=== PATIENT | female | born 1930 | race Caucasian/White ===

== ENCOUNTER 2018-11-14 06:14 | Inpatient (IN) ==
[2018-11-14] MEDS ORDERED: traMADol 50 MG TABLET PO ONE ×2 (08:51→20:13)
[2018-11-14] MEDS ORDERED: Naloxone 0.4 MG/ML INJ IVP PRN (09:08)
[2018-11-14] MEDS ORDERED: *HR* Dextrose 50 % in Water (Syg) 50 ML SYRINGE IVP PRN (09:12)
[2018-11-14] MEDS ORDERED: Dextrose Gel 15 GM/37.5 ML TUBE PO PRN ×2 (09:12)
[2018-11-14] MEDS ORDERED: D5% in Water 1,000 ML IVC PRN (09:12)
[2018-11-14] MEDS ORDERED: *HR* FentaNYL (PF) 100 MCG/2 ML VIAL IVP ONE (09:13)
[2018-11-14] MEDS ORDERED: *HR* OxyCODONE/APAP 5/325 TABLET PO PRN (09:15)
[2018-11-14] MEDS ORDERED: *HR* FentaNYL PATCH 12 MCG PATCH TD SCH (09:15)
[2018-11-14] MEDS: Furosemide 20 MG/2 ML VIAL IVP SCH ×2 (09:51→20:42)
--- NOTE | 2018-11-14 10:10 | Internal Med History&Physical ---
Date of Encounter: 11/14/18 Time of Encounter: 10:04 Internal Medicine - H&P: HPI Chief complaint: abdominal pain Admitted From: Long-term Nursing Facility Plans for Post Hospital Care: Transfer Nursing Home Care History of present illness: Ms. Spence is a 87 year old female PMH of arthritis, CHF, COPD, coronary artery disease, DVT, diabetes, fibromyalgia, GERD, hyperlipidemia, hypertension, myocardial infarction, CKD, hypothyrodism. Patient was transferred to [facility] from [place] [facility] where she was taken due to worsening abdominal pain. Patient reports that she has chronic back and abdominal pain. but since yesterday her abdominal pain has been worsening and not alleviated by the pain medications she has been getting at the [facility]. Describes the abdominal pain as constants, dull 8/10 and generalized. Cannot tell if she has any symptoms because she has a lynne catheter. Denies vomiting episodes but reports nausea. Patient denies chest pain, shortness of breath, light headedness or dizziness. In the ED at [place] patient was found to have a UTI, and an elevated troponin. transferred to [facility] for further management. Past Med Surg Social Fam HX - Past Medical History Medical history: arthritis, CHF, COPD, coronary artery disease, DVT, diabetes, fibromyalgia, GERD, hyperlipidemia, hypertension, myocardial infarction, renal disease, thyroid disease, other Additional medical history: Chronic diastolic heart failure Psychiatric history: anxiety, depression - Past Surgical History Surgical History: angioplasty/stent, cholecystectomy, colostomy, herniorrhaphy, hysterectomy, orthopedic, other Additional surgical history: HERNIA REPAIR, HYSTERECTOMY, COLON SURGERY, BLADDER REPAIR, CARPEL TUNNEL SURGERY, FX FOOT - Social History Smoking Status: Never smoker Smokeless Tobacco Status: No Alcohol use: none Drug use: none Internal Medicine - H&P: Meds Citalopram Hydrobromide [Citalopram HBr] 20 mg PO DAILY 07/17/15 [History] Carvedilol [Coreg] 25 mg PO BID 01/11/18 [History] Cyanocobalamin (B-12) [Vitamin B12] 1,000 mcg PO Q48H 10/25/18 [History] Ferrous Sulfate [Iron] 325 mg PO DAILY 10/25/18 [History] Furosemide [Lasix] 20 mg PO DAILY 10/25/18 [History] Levothyroxine Sodium 100 mcg PO DAILY 10/25/18 [History] Omeprazole [PriLOSEC] 20 mg PO DAILY 10/25/18 [History] Potassium Chloride [Klor-Con 10] 10 meq PO DAILY 10/25/18 [History] predniSONE [PredniSONE] 10 mg PO DAILY 10/25/18 [History] Gabapentin [Neurontin] 100 mg PO HS 30 Days #30 capsule 10/31/18 [Rx] metroNIDAZOLE [Flagyl] 250 mg PO TID #9 tablet 11/11/18 [Rx] Acetaminophen [8Hr Arthritis Pain Relief] 650 mg PO Q6H PRN 11/14/18 [History] Lactobacillus Acidophilus [Acidophilus] 1 each PO BID 11/14/18 [History] Menthol/Zinc Ox/Aloe/Liss Oil [Chamosyn Ointment] 1 applic TP QSHIFT PRN 11/14/18 [History] Oxycodone HCl [Roxybond] 5 mg PO Q4H PRN 11/14/18 [History] Allergy/AdvReac Type Severity Reaction Status Date / Time trimethoprim Allergy See Verified 11/14/18 03:00 Comments Sulfa (Sulfonamide AdvReac Nausea Verified 11/14/18 03:00 Antibiotics) All Systems PM: A 10-system review of systems was performed and is negative for pertinent findings except as documented above in the HPI. - Constitutional Constitutional: weakness, no chills, no fever(s) - EENT Eyes: no spots in vision, no tunnel vision Nose, mouth and throat: no sinus pain, no sinus pressure - Cardiovascular Cardiovascular ROS IM: no chest pain, no edema, no lightheadedness, no palpitations, no paroxysmal nocturnal dyspnea - Respiratory Respiratory: no cough, no chest congestion, no excessive phlegm production - Gastrointestinal Gastrointestinal: abdominal pain, nausea, no diarrhea, no loose stools, no vomiting - Genitourinary Genitourinary: no dysuria, no hematuria - Musculoskeletal Musculoskeletal ROS IM: muscle weakness, no arthralgias, no numbness, no tingling - Integumentary Integumentary IM: no erythema - Neurological Neurological ROS: no headache(s), no vertigo - Psychiatric Psychiatric: no hallucinations, no irritability - Endocrine Endocrine IM: no cold intolerance, no excessive sweating - Hematologic/Lymphatic Hematologic/Lymphatic: no lymphadenopathy - Allergic/Immunologic Allergic/Immunologic: no GI upset with certain foods - Constitutional Vitals: Temp Pulse Resp BP Pulse Ox 97.9 F 58 19 180/71 100 11/14/18 08:30 11/14/18 08:30 11/14/18 08:30 11/14/18 08:30 11/14/18 08:30 Exam: Vitals: Reviewed General: Alert and oriented x4. In mild distress due to abdominal and back pain. Skin: Normal color, no rash, no lesions. HEENT: EOM, pupils equal, round and reactive. Cardiovascular: RRR, normal S1 & S2, no rubs, murmurs or gallops. Lungs: CTA b/l, no wheezes or crackles. Abdomen: Soft, generalized tendernes, no rigidity or guarding. Ostomy bag with formed stool. Extremities: No edema. Neurological: Normal cognition Pulses:Carotid and radial pulses normal +2. Rest of the physical exam is non contributory - Assessment and Plan (1) Abdominal pain Current Visit: No Status: Acute Assessment and plan: patient report worsening pain associated with nausea. radiating to her back. Possible due to UTI. CT abdomen: unremarkable Plan fentaly patch 12 mcg and Oxycodone 1tabs Q6HRs PRN for pain control clear liquid diet Qualifiers: Abdominal location: unspecified location Qualified Code(s): R10.9 - Unspecified abdominal pain (2) UTI (urinary tract infection) Current Visit: Yes Status: Acute Assessment and plan: patient reporting worsening of chronic abdominal pain. chronic lynne in placed recent UTI with hernandez sensitive pseudomonas Plan will start ceftriaxone 1gm/IV daily follow urine culture and adjust antibiotics if needed. Qualifiers: Urinary tract infection type: site unspecified Hematuria presence: without hematuria Qualified Code(s): N39.0 - Urinary tract infection, site not specified (3) DVT prophylaxis Current Visit: No Status: Acute Assessment and plan: Started on heparin subcutaneous. (4) CAD (coronary artery disease) Current Visit: No Status: Chronic Assessment and plan: Patient is not on antiplatelet due to history of GI bleed. Qualifiers: Coronary Disease-Associated Artery/Lesion type: [place] artery [place] vs. transplanted heart: [place] heart Associated angina: without angina Qualified Code(s): I25.10 - Atherosclerotic heart disease of [place] coronary artery without angina pectoris (5) Depression Current Visit: No Status: Chronic Assessment and plan: Continue citalopram 20 mg by mouth daily. Qualifiers: Depression Type: unspecified Qualified Code(s): F32.9 - Major depressive disorder, single episode, unspecified (6) Diabetes Current Visit: No Status: Chronic Assessment and plan: clear liquid diet, will advance as tolerated. lispro low dose sliding scale ac. Qualifiers: Diabetes mellitus type: type 2 Diabetes mellitus trucking manager insulin use: without trucking manager use Diabetes mellitus complication status: with neurologic complications Diabetes mellitus complication detail: with autonomic neuropathy Qualified Code(s): E11.43 - Type 2 diabetes mellitus with diabetic autonomic (poly)neuropathy (7) Hypertension Current Visit: No Status: Chronic Assessment and plan: Blood pressure suboptimally controlled. Patient is on furosemide and carvedilol. hydralazine 5mg/IV Q6HR PRN for SBP >190 Qualifiers: Hypertension type: essential hypertension Qualified Code(s): I10 - Essential (primary) hypertension (8) Hypothyroidism Current Visit: No Status: Chronic Assessment and plan: Continue levothyroxine 100 mcg/Po daily Qualifiers: Hypothyroidism type: unspecified Qualified Code(s): E03.9 - Hypothyroidism, unspecified (9) Congestive heart disease Current Visit: Yes Status: Chronic Assessment and plan: patient euvolemic. fluids restriction to 1.5 litters a day. daily with plus strict intake and out continue furosemide 20mg/IV BID and carvedilol. Qualifiers: Heart failure type: unspecified Heart failure chronicity: chronic Qualified Code(s): I50.9 - Heart failure, unspecified (10) Chronic kidney disease Current Visit: Yes Status: Chronic Assessment and plan: Kidney function slightly improving when compared with DC on 10/31/18. Avoid nephrotoxic medication. Continue furosemide. We will reassess renal function tomorrow morning. Qualifiers: Chronic kidney disease stage: stage 3 (moderate) Qualified Code(s): N18.3 - Chronic kidney disease, stage 3 (moderate) (11) Elevated troponin Current Visit: Yes Status: Acute Assessment and plan: Patient denied chest pain. Elevated troponin likely secondary to CKD. cardiology consulted serial trops test engine evaluator on a bb (12) Hx of deep venous thrombosis Current Visit: Yes Status: Acute Assessment and plan: patient off anticoagulation due to Hx of GI bleeding. on heparin subQ. - Time Spent With Patient Total time spent is greater than 50% in coordination of care (as documented) at patient's floor/unit and/or counseling patient: Greater than 35 minutes (45)
[2018-11-14] MEDS ORDERED: Ipratropium/Albuterol Neb 3 ML IH PRN (10:27)
[2018-11-14] MEDS: Insulin LISPRO 300 UNITS/3 ML VIAL SQ SCH ×2 (11:48→17:05)
[2018-11-14] MEDS: *HR* OxyCODONE/APAP 5/325 TABLET PO PRN (17:06)
[2018-11-14] MEDS: *HR* Heparin 5,000 UNIT/ML VIAL SQ SCH (17:10)
[2018-11-14] MEDS: Ondansetron 4 MG/2 ML VIAL IVP PRN (20:42)
[2018-11-15] MEDS: *HR* OxyCODONE/APAP 5/325 TABLET PO PRN ×2 (00:38→06:40)
[2018-11-15 04:26] LABS: Calcium 7.8 mg/dL (8.6-10.3); Magnesium 1.6 mg/dL (1.6-2.6); Phosphorous 3.7 mg/dL (2.7-4.5)
[2018-11-15] MEDS: *HR* Heparin 5,000 UNIT/ML VIAL SQ SCH ×2 (04:56→17:38)
[2018-11-15] MEDS: Insulin LISPRO 300 UNITS/3 ML VIAL SQ SCH ×3 (07:32→17:35)
[2018-11-15] MEDS ORDERED: cefTRIAXone 1,000 MG in Water for inj. (sterile) 20 ML 10 ML IVP SCH (09:00)
[2018-11-15] MEDS: Furosemide 20 MG/2 ML VIAL IVP SCH ×2 (09:02→17:38)
[2018-11-15] MEDS ORDERED: OXYCODONE Oral CONC 10 MG/0.5 ML ORAL.SYG SL PRN (09:05)
--- NOTE | 2018-11-15 09:49 | Cardiology Consult Note ---
Date of Encounter: 11/15/18 Time of Encounter: 09:00 Assessment and Plan (1) UTI (urinary tract infection) Current Visit: Yes Status: Acute Per cardiology: -Patient admitted with UTI, abdominal pain. -Management per primary service. Qualifiers: Urinary tract infection type: site unspecified Hematuria presence: without hematuria Qualified Code(s): N39.0 - Urinary tract infection, site not specified (2) Elevated troponin Current Visit: No Status: Chronic Per cardiology: -Troponins 0.07 x2, 0.08, 0.06, 0.07 in the setting of UTI. Of note, appears to have chronically elevated troponins. -Denies chest pain, angina. -ECG with no acute ischemic changes noted. -TTE 10/29/18 with LVEF 65%, moderate diastolic dysfunction, moderately dilated left atrium, mild , mild MR, mild-moderate TR, mild-moderate LA, severe PH, no wall motion abnormalities noted -LHC 06/2016 with 90% ostial LAD, circ with patent stents from previous procedure, 20% prox RCA, 40% RPDA. Patient underwent high risk PCI to ostial LAD at [facility] 06/2016. -Demand ischemia. No cardiac rehab consult warranted. Anticipate cardiology sign off, once seen and evaluated by . -OF note recent diagnosis of DVT 11/04/18 at [facility]. Recently started on coumadin outpatient, notified hospitalist. History of GI bleed. With need for anticoagulation, will not add ASA at this time. If hemoglobin tolerates coumadin, consider addition of ASA. -Will start statin. (3) Essential hypertension Current Visit: Yes Status: Chronic Per cardiology: -Known HTN. -ON BB. -BP remains 150-190s systolic. -Suspect pain contributing to HTN. -Recent NOBLE 10/2018 with creatinine 3s. -Will add norvasc for HTN. -Pain management per primary service. -Can further uptitrate anti-hypertensives as needed for BP control. Discussion w patient/family: The assessment and plan as outlined above was discussed with the patient who expressed understanding and agreement. All questions were answered. Thank you for involving us in the care of your patient. Please call with any questions. Discussed and reviewed with . History of Present Illness Consult date: 11/14/18 Requesting physician: Jude Estes Consult reason: elevated troponin Chief complaint: abdominal pain History of present illness: Ms. Spence is a 87 year old female with a relevant past medical history of [place], CAD s/p PCI, depression, anemia, CKD, DM, fibromyaglia, HTN, HLD, hypothyroidism, ischemic cardiomyopathy, LVEF recovered after revascularization, GERD, recent diagnosis of DVT 11/04/18 (from detention reports), who presented to [facility] from [facility] with complaints of abdominal pain. Patient reports continued abdominal pain this am. Patient currently being treated for UTI. Cardiology consulted for elevated troponins. Patient denies chest pain. Denies increased shortness of breath from baseline. Past Med Surg Social Fam HX - Past Medical History Attestation: Yes The following information was validated with the patient. Source: patient, old records reviewed Medical history: arthritis, CHF, COPD, coronary artery disease, DVT, diabetes, fibromyalgia, GERD, hyperlipidemia, hypertension, myocardial infarction, renal disease, thyroid disease, other Additional medical history: Chronic diastolic heart failure Psychiatric history: anxiety, depression - Past Surgical History Surgical History: angioplasty/stent, cholecystectomy, colostomy, herniorrhaphy, hysterectomy, orthopedic, other Additional surgical history: HERNIA REPAIR, HYSTERECTOMY, COLON SURGERY, BLADDER REPAIR, CARPEL TUNNEL SURGERY, FX FOOT - Social History Smoking Status: Never smoker Smokeless Tobacco Status: No Alcohol use: none Drug use: none Medications and Allergies Citalopram Hydrobromide [Citalopram HBr] 10 mg PO DAILY 07/17/15 [History] Carvedilol [Coreg] 12.5 mg PO BID 01/11/18 [History] Cyanocobalamin (B-12) [Vitamin B12] 1,000 mcg PO Q48H 10/25/18 [History] Ferrous Sulfate [Iron] 325 mg PO DAILY 10/25/18 [History] Levothyroxine Sodium 100 mcg PO DAILY 10/25/18 [History] Omeprazole [PriLOSEC] 20 mg PO DAILY 10/25/18 [History] predniSONE [PredniSONE] 10 mg PO DAILY 10/25/18 [History] Cholecalciferol (Vitamin D3) [Vitamin D] 50,000 unit PO TU 11/14/18 [History] Furosemide [Lasix] 20 mg PO DAILY 11/14/18 [History] Oxycodone HCl [Roxybond] 5 mg PO Q4H PRN 11/14/18 [History] Warfarin [Coumadin] 2 mg PO 1800 11/14/18 [History] Allergy/AdvReac Type Severity Reaction Status Date / Time trimethoprim Allergy See Verified 11/14/18 03:00 Comments Sulfa (Sulfonamide AdvReac Nausea Verified 11/14/18 03:00 Antibiotics) All Systems Review: The remainder of the systems were reviewed and are negative - Cardiovascular Cardiovascular: as per HPI - Gastrointestinal Gastrointestinal: abdominal pain Physical Examination Vital Signs, Last 4 Hours Temp Pulse Resp BP Pulse Ox 11/15/18 07:31 97.6 F 67 18 154/71 98 General: Conversant, No Apparent Distress HEENT: Atraumatic, Normocephaly, Mucus Membranes Moist Neck: No JVD, Normal carotid pulses Cardiac: Reg Rate and Rhythm, Normal S1 and S2, No Murmur Lungs: Normal Breath Sounds, No Wheeze, Rales, Rhonchi Neuro: Alert and responsive, No focal deficits noted Abdomen: Soft, Other (Tender to palpation. ) Skin: No rashes noted on visualized skin Musculoskeletal: No Chest Wall Tenderness Extremities: No Clubbing, No Cyanosis, No Edema, Normal Pulses Results 11/15/18 03:55 Lab Results Active Medications Albuterol/Ipratropium (Duoneb) 3 ml IH [id number] PRN PRN Reason: Shortness Of Breath/Wheezing Stop: 05/16/19 10:28 Carvedilol (Coreg) 12.5 mg PO BIDWM [facility]; Protocol Stop: 05/16/19 17:01 Last Admin: 11/15/18 09:02 Dose: 12.5 mg Citalopram Hydrobromide (Celexa) 20 mg PO DAILY JARET Stop: 05/17/19 09:01 Last Admin: 11/15/18 09:02 Dose: 20 mg Dextrose/Water (Dextrose 50% (Syg)) 25 ml IVP AD PRN PRN Reason: Hypoglycemia Stop: 05/16/19 09:13 Last Admin: 11/15/18 04:44 Dose: 25 ml Ferrous Sulfate (Ferrous Sulfate) 325 mg PO DAILY@0800 JARET Stop: 05/17/19 08:01 Last Admin: 11/15/18 09:01 Dose: 325 mg Furosemide (Lasix) 20 mg IVP BIDDIURETIC JARET Stop: 05/17/19 08:01 Last Admin: 11/15/18 09:02 Dose: 20 mg Glucagon (Glucagen) 1 mg IM ONCE PRN PRN Reason: Hypoglycemia Stop: 05/16/19 09:13 Glucose (Gluctose) 15 gm PO ONCE PRN PRN Reason: Hypoglycemia Stop: 05/16/19 09:13 Glucose (Gluctose) 30 gm PO ONCE PRN PRN Reason: Hypoglycemia Stop: 05/16/19 09:13 Heparin Sodium (Porcine) (Heparin) 5,000 unit SQ Q12HCO [facility] Stop: 05/16/19 18:01 Last Admin: 11/15/18 04:56 Dose: 5,000 unit Hydralazine HCl (Hydralazine) 5 mg IVP Q6HR PRN PRN Reason: Hypertension Stop: 05/16/19 10:22 Last Admin: 11/15/18 04:03 Dose: 5 mg Ceftriaxone Sodium 1,000 mg/ (Sterile Water) 10 mls @ 600 mls/hr IVP DAILY [facility] Stop: 05/17/19 09:01 Last Admin: 11/15/18 09:01 Dose: 600 mls/hr Dextrose (Dextrose 5%) 1,000 mls @ 100 mls/hr IVC .Q10H PRN PRN Reason: HYPOGLYCEMIA Stop: 05/16/19 09:13 Insulin Human Lispro (Humalog) 0 units SQ TIDAC [facility]; Protocol Stop: 05/16/19 11:31 Last Admin: 11/15/18 07:32 Dose: Not Given Levothyroxine Sodium (Synthroid) 100 mcg PO DAILY@0630 [facility] Stop: 05/17/19 06:31 Last Admin: 11/15/18 04:56 Dose: 100 mcg Naloxone HCl (Narcan) 0.4 mg IVP Q2M PRN PRN Reason: SEE COMMENTS Stop: 05/16/19 09:09 Ondansetron HCl (Zofran) 4 mg IVP Q8HR PRN; Protocol PRN Reason: Nausea And Vomiting Stop: 05/16/19 10:09 Last Admin: 11/14/18 20:42 Dose: 4 mg Oxycodone HCl (Oxycodone Oral Conc) 5 mg SL Q3H PRN; Protocol PRN Reason: Pain Stop: 05/17/19 09:35 Last Admin: 11/15/18 09:51 Dose: 5 mg Laboratory Tests 07/17/15 10/25/18 10/26/18 10:43 15:02 01:11 Hgb Creatinine Troponin I 0.11 H* 0.12 H* 0.13 H* 11/14/18 11/14/18 11/14/18 03:25 03:25 10:10 Hgb 10.4 L Creatinine Troponin I 0.07 H* 0.07 H* 11/14/18 11/14/18 11/15/18 16:13 22:09 03:55 Hgb Creatinine 1.79 H Troponin I 0.08 H* 0.06 H* 11/15/18 03:55 Hgb Creatinine Troponin I 0.07 H* - Imaging and Cardiology Echo: report reviewed Cardiac cath: report reviewed - EKG Interpretation EKG results cardiology: personally reviewed (ECG with SB, HR 54. PAC noted.), other (Telemetry reviewed with average HR previous 12 hours noted to be 63, SR. PVCs, PACS noted. Short runof atrial tachycardia noted.) Consult Discharge Plan - Plan Referrals: Alfa Zhou Jr, MD [Primary Care Provider] -
[2018-11-15] MEDS: OXYCODONE Oral CONC 10 MG/0.5 ML ORAL.SYG SL PRN ×5 (09:51→22:13)
[2018-11-15] MEDS: amLODIPine 5 MG TABLET PO SCH (10:58)
--- NOTE | 2018-11-15 12:10 | Internal Med Progress Note ---
Hospitalist Progress Note - Encounter Date of Encounter: 11/15/18 Time of Encounter: 09:00 - Subjective Interval History: Patient still has abdominal pain. In acute distress. Denies nausea, vomiting, or diarrhea. Patient has no fever. - Exam Vitals: Temp Pulse Resp BP Pulse Ox 97.6 F 67 18 154/71 98 11/15/18 07:31 11/15/18 07:31 11/15/18 07:31 11/15/18 07:31 11/15/18 07:31 Exam: Vitals: Reviewed General: Alert and oriented x4. In mild distress due to abdominal and back pain. Skin: Normal color, no rash, no lesions. HEENT: EOM, pupils equal, round and reactive. Cardiovascular: RRR, normal S1 & S2, no rubs, murmurs or gallops. Lungs: CTA b/l, no wheezes or crackles. Abdomen: Soft, generalized tendernes, no rigidity or guarding or rebound. Ostomy bag with formed stool. Extremities: No edema. Neurological: Normal cognition Pulses:Carotid and radial pulses normal +2. Rest of the physical exam is non contributory - Assessment and Plan (1) Hypertension Current Visit: No Status: Chronic Assessment and Plan: Blood pressure suboptimally controlled. Patient is on furosemide and carvedilol. Hydralazine IV Q6HR PRN for SBP >190 (2) DVT prophylaxis Current Visit: No Status: Acute Assessment and Plan: Started on heparin subcutaneous at this point (3) Depression Current Visit: No Status: Chronic Assessment and Plan: Continue citalopram 20 mg by mouth daily. (4) Diabetes Current Visit: No Status: Chronic Assessment and Plan: clear liquid diet, will advance as tolerated. lispro low dose sliding scale ac. (5) CAD (coronary artery disease) Current Visit: No Status: Chronic Assessment and Plan: Patient is not on antiplatelet due to history of GI bleed. (6) Hypothyroidism Current Visit: No Status: Chronic Assessment and Plan: Continue levothyroxine 100 mcg/Po daily (7) Abdominal pain Current Visit: No Status: Acute Assessment and Plan: Pt remains having abd pain, mainly on the LUQ with hard lump palpiable, likely hernia. CT abd shows peristomal hernia containing small bowel but no evidence for bowel obstruction. - Will consult GI and surgery. - Cont clear liquid diet now. - Pain medications for pain. (8) UTI (urinary tract infection) Current Visit: Yes Status: Acute Assessment and Plan: Chronic lynne in placed recent UTI with hernandez sensitive pseudomonas Plan will switch abx to cefepime 2g iv qd per renal function follow urine culture and adjust antibiotics if needed. (9) Congestive heart disease Current Visit: Yes Status: Chronic Assessment and Plan: patient euvolemic. fluids restriction to 1.5 litters a day. daily with plus strict intake and out continue furosemide 20mg/IV BID and carvedilol. (10) Chronic kidney disease Current Visit: Yes Status: Chronic Assessment and Plan: Kidney function slightly improving when compared with DC on 10/31/18. Avoid nephrotoxic medication. Continue furosemide. We will reassess renal function tomorrow morning. (11) Elevated troponin Current Visit: Yes Status: Acute Assessment and Plan: Patient denied chest pain. Elevated troponin likely secondary to CKD. cardiology consult appreciated serial trops adynamic seam taper machine on a bb (12) Hx of deep venous thrombosis Current Visit: Yes Status: Acute Assessment and Plan: Pt was diagnosed as Right side DVT on 11/04/18, started lovenox and coumadin in [place], however pt developped hematuria on 11/11 and visited our ED. patient off anticoagulation since then. - on heparin subQ now. - Will need to consider restart AC or place IVC filter, needs to talk to pt's family as pt is a poor historian, however, cannot reach family on phone, message left. Cont current treatment at this point. DVT Prophylaxis: Heparin SC - Time Spent with Patient Total time spent is greater than 50% in coordination of care (as documented) at patient's floor/unit and/or counseling patient: 30 min 25 - 35 minutes Plan of Care Discussed with: patient Internal Medicine: Result - Labs CBC & Chem 7: 11/15/18 03:55 Labs: BMP 11/15/18 03:55 Sodium 138 Potassium 4.0 Chloride 104 Carbon Dioxide 30 H BUN 27 H Creatinine 1.79 H Glucose 57 L Calcium 7.8 L Cardiac Enzymes 11/14/18 11/14/18 11/15/18 Range/Units 16:13 22:09 03:55 Troponin I 0.08 H* 0.06 H* 0.07 H* (< 0.04) ng/mL 11/15/18 Range/Units 09:57 Troponin I 0.07 H* (< 0.04) ng/mL Consult Discharge Plan - Plan Referrals: Alfa Zhou Jr, MD [Primary Care Provider] - (1) Hypertension Qualifiers: Hypertension type: essential hypertension Qualified Code(s): I10 - Essential (primary) hypertension (3) Depression Qualifiers: Depression Type: unspecified Qualified Code(s): F32.9 - Major depressive disorder, single episode, unspecified (4) Diabetes Qualifiers: Diabetes mellitus type: type 2 Diabetes mellitus terminal make up operator insulin use: without terminal make up operator use Diabetes mellitus complication status: with neurologic complications Diabetes mellitus complication detail: with autonomic neuropathy Qualified Code(s): E11.43 - Type 2 diabetes mellitus with diabetic autonomic (poly)neuropathy (5) CAD (coronary artery disease) Qualifiers: Coronary Disease-Associated Artery/Lesion type: [place] artery [place] vs. transplanted heart: [place] heart Associated angina: without angina Qualified Code(s): I25.10 - Atherosclerotic heart disease of [place] coronary artery without angina pectoris (6) Hypothyroidism Qualifiers: Hypothyroidism type: unspecified Qualified Code(s): E03.9 - Hypothyroidism, unspecified (7) Abdominal pain Qualifiers: Abdominal location: unspecified location Qualified Code(s): R10.9 - Unspecified abdominal pain (8) UTI (urinary tract infection) Qualifiers: Urinary tract infection type: site unspecified Hematuria presence: without hematuria Qualified Code(s): N39.0 - Urinary tract infection, site not specified (9) Congestive heart disease Qualifiers: Heart failure type: unspecified Heart failure chronicity: chronic Qualified Code(s): I50.9 - Heart failure, unspecified (10) Chronic kidney disease Qualifiers: Chronic kidney disease stage: stage 3 (moderate) Qualified Code(s): N18.3 - Chronic kidney disease, stage 3 (moderate)
[2018-11-15] MEDS ORDERED: MOM Conc 10 ML UD.LIQ PO ONE (13:08)
--- NOTE | 2018-11-15 13:13 | AcuteCare Surgery Consult Note ---
<Deanna Jimenez - Last Filed: 11/15/18 13:09> Date of Encounter: 11/15/18 Time of Encounter: 13:09 Assessment and Plan (1) Abdominal pain Current Visit: Yes Status: Acute Pt reports left and right upper quadrant ab pain, hard stool form colostomy. States "if I could get this thing to move more I would feel better." Surgery was consulted for recommendations regarding parastomal hernia and abdominal pain. The hernia is not likely the cause of discomfort and would not require surgical intervention (pt preemptively states "I don't want any more surgery"). Recommend treating constipationw tih milk of magnesium x1 and miralax Q6H until having loose stool per colosotmy. If patient would tolerate, miralax bowel prep would also be an option. Surgery will sign off. Thank you for allowing us to participate in Ms. Spence's care. Please call or reconsult if any further questions or needs arise. Qualifiers: Abdominal location: upper abdomen, unspecified Qualified Code(s): R10.10 - Upper abdominal pain, unspecified (2) Constipation Current Visit: Yes Status: Acute see above Qualifiers: Constipation type: slow transit constipation Qualified Code(s): K59.01 - Slow transit constipation History of Present Illness Consult date: 11/15/18 (Dr. Ralph Head) Reason for consult: other (abdominal pain and hernia) Requesting physician: Nilton Seymour History of present illness: Patient's past medical, surgical, social, and family history has been reviewed with the patient and per record review, updated in the electronic medical record were indicated Surgery has been consulted for recommendations regarding abdominal pain and parastomal hernia presented on 11/14/2018 for abdominal pain. She was transferred from [facility] to [facility]. CT on 11/11/2018 noted a large stool burden which was stable from her prior exam. She reports of late she has been having difficulty with firm stools in the colostomy. She reports that she could have loose stool she probably would "feel better." She denies fever, chills, headache, dizziness, chest pain, shortness of breath, nausea, vomiting, or bloody stool. Upon my entry into the room and introduction as the nurse practitioner surgery she preemptively states "I am not having any more surgeries." She reports a chronic Pal catheter. Past Med Surg Social Fam HX - Past Medical History Source: patient, old records reviewed Medical history: arthritis, CHF, COPD, coronary artery disease, DVT, diabetes, fibromyalgia, GERD, hyperlipidemia, hypertension, myocardial infarction, renal disease, thyroid disease, other Additional medical history: Chronic diastolic heart failure Psychiatric history: anxiety, depression - Past Surgical History Surgical History: angioplasty/stent, cholecystectomy, colostomy, herniorrhaphy, hysterectomy, orthopedic, other Additional surgical history: HERNIA REPAIR, HYSTERECTOMY, COLON SURGERY, BLADDER REPAIR, CARPEL TUNNEL SURGERY, FX FOOT - Social History Smoking Status: Never smoker Smokeless Tobacco Status: No Alcohol use: none Drug use: none Medications and Allergies RX: Citalopram Hydrobromide [Citalopram HBr] 10 mg PO DAILY 07/17/15 [History] RX: Carvedilol [Coreg] 12.5 mg PO BID 01/11/18 [History] RX: Cyanocobalamin (B-12) [Vitamin B12] 1,000 mcg PO Q48H 10/25/18 [History] RX: Ferrous Sulfate [Iron] 325 mg PO DAILY 10/25/18 [History] RX: Levothyroxine Sodium 100 mcg PO DAILY 10/25/18 [History] RX: Omeprazole [PriLOSEC] 20 mg PO DAILY 10/25/18 [History] RX: predniSONE [PredniSONE] 10 mg PO DAILY 10/25/18 [History] Cholecalciferol (Vitamin D3) [Vitamin D] 50,000 unit PO TU 11/14/18 [History] Furosemide [Lasix] 20 mg PO DAILY 11/14/18 [History] Oxycodone HCl [Roxybond] 5 mg PO Q4H PRN 11/14/18 [History] Warfarin [Coumadin] 2 mg PO 1800 11/14/18 [History] RX: Docusate [Colace] 100 mg PO BID 11/15/18 [History] RX: Polyethylene Glycol 3350 [MiraLAX] 17 gm PO DAILY PRN 11/15/18 [History] Allergy/AdvReac Type Severity Reaction Status Date / Time trimethoprim Allergy See Verified 11/14/18 03:00 Comments Sulfa (Sulfonamide AdvReac Nausea Verified 11/14/18 03:00 Antibiotics) Review of Systems All systems PM: reviewed and no additional remarkable complaints except as stated All systems PM: The remainder of the systems were reviewed and are negative General Surgery Exam Initial Vital Signs Temp Pulse Resp BP Pulse Ox 97.9 F 58 19 180/71 100 11/14/18 08:30 11/14/18 08:30 11/14/18 08:30 11/14/18 08:30 11/14/18 08:30 - General physical appearance no distress, moderate pain (BL upper abdomen) - Neck trachea midline - Respiratory normal expansion - Cardiovascular Cardiovascular exam: Present: distant heart sounds - Abdomen Abdomen general surgery: Present: bowel sounds present, soft, tender (BL upper abdomen), wound (Stoma is pink and moist. There are hard stool adhikari noted around the stoma. There is a moderate amount of air and ostomy appliance.) Hernia: Present: reducible (Parastomal) - Integumentary Integumentary general surgery: Present: other (Multiple areas of ecchymosis on bilateral upper extremities) - Neurologic Present: normal sensation - Musculoskeletal Present: other (generalized weakness) - Psychiatric Psychiatric general surgery: Present: A&Ox3 Exam Initial Vital Signs Temp Pulse Resp BP Pulse Ox 97.9 F 58 19 180/71 100 11/14/18 08:30 11/14/18 08:30 11/14/18 08:30 11/14/18 08:30 11/14/18 08:30 Results - Labs 11/15/18 03:55 Abnormal lab results Carbon Dioxide 30 mEq/L (23-29) H 11/15/18 03:55 BUN 27 mg/dL (8-23) H 11/15/18 03:55 Creatinine 1.79 mg/dL (0.60-1.20) H 11/15/18 03:55 Est GFR ( Amer) 33 (> 60) L 11/15/18 03:55 Est GFR (Non-Af Amer) 27 (> 60) L 11/15/18 03:55 Glucose 57 mg/dL (70-105) L 11/15/18 03:55 Calcium 7.8 mg/dL (8.6-10.3) L 11/15/18 03:55 Troponin I 0.07 ng/mL (< 0.04) H* 11/15/18 09:57 Diabetes panel 11/15/18 Range/Units 03:55 Sodium 138 (136-145) mEq/L Potassium 4.0 (3.5-5.1) mEq/L Chloride 104 (98-107) mEq/L Carbon Dioxide 30 H (23-29) mEq/L BUN 27 H (8-23) mg/dL Creatinine 1.79 H (0.60-1.20) mg/dL Glucose 57 L (70-105) mg/dL Calcium 7.8 L (8.6-10.3) mg/dL Calcium panel 11/15/18 Range/Units 03:55 Calcium 7.8 L (8.6-10.3) mg/dL Phosphorus 3.7 (2.7-4.5) mg/dL Pituitary panel 11/15/18 Range/Units 03:55 Sodium 138 (136-145) mEq/L Potassium 4.0 (3.5-5.1) mEq/L Chloride 104 (98-107) mEq/L Carbon Dioxide 30 H (23-29) mEq/L BUN 27 H (8-23) mg/dL Creatinine 1.79 H (0.60-1.20) mg/dL Glucose 57 L (70-105) mg/dL Calcium 7.8 L (8.6-10.3) mg/dL Adrenal panel 11/15/18 Range/Units 03:55 Sodium 138 (136-145) mEq/L Potassium 4.0 (3.5-5.1) mEq/L Chloride 104 (98-107) mEq/L Carbon Dioxide 30 H (23-29) mEq/L BUN 27 H (8-23) mg/dL Creatinine 1.79 H (0.60-1.20) mg/dL Glucose 57 L (70-105) mg/dL Calcium 7.8 L (8.6-10.3) mg/dL All other labs normal. - Imaging CT scan - abdomen: report reviewed, image reviewed CT scan - pelvis: report reviewed, image reviewed Consult Discharge Plan - Plan Referrals: Alfa Zhou Jr, MD [Primary Care Provider] - <Ralph Head - Last Filed: 11/15/18 15:29> Date of Encounter: 11/15/18 Review of Systems All systems PM: The remainder of the systems were reviewed and are negative General Surgery Exam Initial Vital Signs Temp Pulse Resp BP Pulse Ox 97.9 F 58 19 180/71 100 11/14/18 08:30 11/14/18 08:30 11/14/18 08:30 11/14/18 08:30 11/14/18 08:30 Exam Initial Vital Signs Temp Pulse Resp BP Pulse Ox 97.9 F 58 19 180/71 100 11/14/18 08:30 11/14/18 08:30 11/14/18 08:30 11/14/18 08:30 11/14/18 08:30 Results - Labs 11/15/18 13:18 11/15/18 13:18 Abnormal lab results RBC 3.19 M/mcL (3.82-4.97) L 11/15/18 13:18 Hgb 10.4 g/dL (11.5-15.4) L 11/15/18 13:18 Hct 30.7 % (35.3-44.9) L 11/15/18 13:18 BUN 24 mg/dL (8-23) H 11/15/18 13:18 Creatinine 1.89 mg/dL (0.60-1.20) H 11/15/18 13:18 Est GFR ( Amer) 31 (> 60) L 11/15/18 13:18 Est GFR (Non-Af Amer) 25 (> 60) L 11/15/18 13:18 Calcium 7.8 mg/dL (8.6-10.3) L 11/15/18 13:18 Troponin I 0.07 ng/mL (< 0.04) H* 11/15/18 09:57 Serum Total Protein 4.5 g/dL (6.4-8.9) L 11/15/18 13:18 Albumin 2.5 g/dL (3.5-5.7) L 11/15/18 13:18 Globulin 2.0 g/dL (2.4-3.5) L 11/15/18 13:18 Diabetes panel 11/15/18 11/15/18 Range/Units 03:55 13:18 Sodium 138 137 (136-145) mEq/L Potassium 4.0 3.8 (3.5-5.1) mEq/L Chloride 104 101 (98-107) mEq/L Carbon Dioxide 30 H 29 (23-29) mEq/L BUN 27 H 24 H (8-23) mg/dL Creatinine 1.79 H 1.89 H (0.60-1.20) mg/dL Glucose 57 L 97 (70-105) mg/dL Calcium 7.8 L 7.8 L (8.6-10.3) mg/dL AST 15 (13-39) Units/L ALT 8 (7-52) Units/L Alkaline Phosphatase 38 (34-104) Units/L Albumin 2.5 L (3.5-5.7) g/dL Calcium panel 11/15/18 11/15/18 Range/Units 03:55 13:18 Calcium 7.8 L 7.8 L (8.6-10.3) mg/dL Phosphorus 3.7 (2.7-4.5) mg/dL Albumin 2.5 L (3.5-5.7) g/dL Pituitary panel 11/15/18 11/15/18 Range/Units 03:55 13:18 Sodium 138 137 (136-145) mEq/L Potassium 4.0 3.8 (3.5-5.1) mEq/L Chloride 104 101 (98-107) mEq/L Carbon Dioxide 30 H 29 (23-29) mEq/L BUN 27 H 24 H (8-23) mg/dL Creatinine 1.79 H 1.89 H (0.60-1.20) mg/dL Glucose 57 L 97 (70-105) mg/dL Calcium 7.8 L 7.8 L (8.6-10.3) mg/dL Adrenal panel 11/15/18 11/15/18 Range/Units 03:55 13:18 Sodium 138 137 (136-145) mEq/L Potassium 4.0 3.8 (3.5-5.1) mEq/L Chloride 104 101 (98-107) mEq/L Carbon Dioxide 30 H 29 (23-29) mEq/L BUN 27 H 24 H (8-23) mg/dL Creatinine 1.79 H 1.89 H (0.60-1.20) mg/dL Glucose 57 L 97 (70-105) mg/dL Calcium 7.8 L 7.8 L (8.6-10.3) mg/dL Total Bilirubin 0.4 (0.3-1.0) mg/dL AST 15 (13-39) Units/L ALT 8 (7-52) Units/L Alkaline Phosphatase 38 (34-104) Units/L Albumin 2.5 L (3.5-5.7) g/dL All other labs normal. - Attending Attestation I have personally performed a face to face evaluation on this patient. I have reviewed and agree with the care plan. History and Exam by me shows: The patient is seen and evaluated. The findings were discussed with the clinical nurse practitioner. I personally reviewed the CAT scan of the abdomen. The patient does have a parastomal hernia with a few loops of nonobstructive small bowel in the hernia. There are no other hernias in the abdomen. The ostomy is functioning normally. She does appear to have constipation or obstipation. At time of examination she is not complaining of any abdominal pa in whatsoever. Continue with bowel regimen to prevent constipation. Ralph Head MD FACS
[2018-11-15 13:47] LABS: Basophils % 0.4 %; Eosinophils # 0.1 K/mcL (0.0-0.6); Eosinophils % 2.7 %; Hematocrit 30.7 % (35.3-44.9); Hemoglobin 10.4 g/dL (11.5-15.4); Immature Granulocytes % 0.8 % (0-4); Lymphocytes # 1.1 K/mcL (0.6-4.6); Lymphocytes % 22.3 %; Mean Corpuscular HGB Conc 33.9 g/dL (31.6-35.5); Mean Corpuscular Hemoglobin 32.6 pg (28.0-33.3); Mean Corpuscular Volume 96.2 fL (83.0-100.0); Mean Platelet Volume 9.6 fL (9.4-12.4); Monocytes # 0.6 K/mcL (0.0-1.3); Monocytes % 11.7 %; Platelet Count 219 K/mcL (140-400); Red Blood Count 3.19 M/mcL (3.82-4.97); Red Cell Distribution Width 14.1 % (11.5-14.5); Segmented Neutrophils % 62.1 %
[2018-11-15 13:59] LABS: Albumin 2.5 g/dL (3.5-5.7); Albumin/Globulin Ratio 1.3 (1.1-2.2); Bilirubin,Total 0.4 mg/dL (0.3-1.0); Calcium 7.8 mg/dL (8.6-10.3); Potassium 3.8 mEq/L (3.5-5.1); Total Protein 4.5 g/dL (6.4-8.9)
[2018-11-15] MEDS: Cefepime HCl 1,000 MG in Water for inj. (sterile) 20 ML 10 ML IVP SCH ×2 (14:24→17:37)
[2018-11-16] MEDS: OXYCODONE Oral CONC 10 MG/0.5 ML ORAL.SYG SL PRN ×3 (01:10→07:24)
[2018-11-16] MEDS: *HR* Heparin 5,000 UNIT/ML VIAL SQ SCH ×2 (06:31→17:52)
[2018-11-16] MEDS: Cefepime HCl 1,000 MG in Water for inj. (sterile) 20 ML 10 ML IVP SCH ×2 (06:32→17:44)
[2018-11-16 08:18] LABS: Basophils % 0.4 %; Eosinophils # 0.1 K/mcL (0.0-0.6); Eosinophils % 2.6 %; Hematocrit 28.9 % (35.3-44.9); Hemoglobin 9.7 g/dL (11.5-15.4); Immature Granulocytes % 1.1 % (0-4); Lymphocytes # 1.1 K/mcL (0.6-4.6); Lymphocytes % 22.9 %; Mean Corpuscular HGB Conc 33.6 g/dL (31.6-35.5); Mean Corpuscular Hemoglobin 32.6 pg (28.0-33.3); Mean Platelet Volume 9.5 fL (9.4-12.4); Monocytes # 0.6 K/mcL (0.0-1.3); Monocytes % 13.1 %; Neutrophils # 2.7 K/mcL (1.6-8.9); Platelet Count 190 K/mcL (140-400); Red Blood Count 2.98 M/mcL (3.82-4.97); Segmented Neutrophils % 59.9 %
[2018-11-16 08:24] LABS: INR 1.6; Prothrombin Time 18.1 Seconds (9.4-12.1)
[2018-11-16 08:36] LABS: Calcium 7.8 mg/dL (8.6-10.3); Potassium 3.8 mEq/L (3.5-5.1)
[2018-11-16] MEDS: Insulin LISPRO 300 UNITS/3 ML VIAL SQ SCH ×3 (09:16→17:04)
[2018-11-16] MEDS ORDERED: OXYCODONE Oral CONC 10 MG/0.5 ML ORAL.SYG SL ONE (09:25)
[2018-11-16] MEDS: Furosemide 20 MG/2 ML VIAL IVP SCH (09:28)
[2018-11-16] MEDS: amLODIPine 5 MG TABLET PO SCH (09:28)
[2018-11-16] MEDS ORDERED: Pantoprazole 40 MG VIAL IVP SCH (10:15)
[2018-11-16] MEDS: *HR* OxyCODONE/APAP 10/325 TABLET PO PRN ×2 (11:34→16:04)
--- NOTE | 2018-11-16 12:29 | Internal Med Progress Note ---
Hospitalist Progress Note - Encounter Date of Encounter: 11/16/18 Time of Encounter: 09:00 - Subjective Interval History: Patient is still complaining of abdominal pain. No nausea, no vomiting, no fever. Patient was treated as constipation and in her colostomy bag there is liquid stool. Vitals are stable. - Exam Vitals: Temp Pulse Resp BP Pulse Ox 97.8 F 74 18 133/72 99 11/16/18 11:32 11/16/18 11:32 11/16/18 11:32 11/16/18 11:32 11/16/18 11:32 Exam: Vitals: Reviewed General: Alert and oriented x4. In mild distress due to abdominal and back pain. Skin: Normal color, no rash, no lesions. HEENT: EOM, pupils equal, round and reactive. Cardiovascular: RRR, normal S1 & S2, no rubs, murmurs or gallops. Lungs: CTA b/l, no wheezes or crackles. Abdomen: Soft, generalized tendernes, no rigidity or guarding or rebound. Ostomy bag with liquid stool. Extremities: No edema. Neurological: Normal cognition Pulses:Carotid and radial pulses normal +2. Rest of the physical exam is non contributory - Assessment and Plan (1) Hypertension Current Visit: No Status: Chronic Assessment and Plan: Blood pressure suboptimally controlled. Patient is on furosemide and carvedilol. Hydralazine IV Q6HR PRN for SBP >160 (2) DVT prophylaxis Current Visit: No Status: Acute Assessment and Plan: Started on heparin subcutaneous at this point (3) Depression Current Visit: No Status: Chronic Assessment and Plan: Continue citalopram 20 mg by mouth daily. (4) Diabetes Current Visit: No Status: Chronic Assessment and Plan: clear liquid diet, will advance as tolerated. lispro low dose sliding scale ac. (5) CAD (coronary artery disease) Current Visit: No Status: Chronic Assessment and Plan: Patient is not on antiplatelet due to history of GI bleed and hematuria. Patient has no further signs of bleeding. Will restart ASA 81 mg daily (6) Hypothyroidism Current Visit: No Status: Chronic Assessment and Plan: Continue levothyroxine 100 mcg/Po daily. Will recheck TSH (7) Abdominal pain Current Visit: Yes Status: Acute Assessment and Plan: Pt remains having abd pain, mainly on the LUQ with hard lump palpiable, likely hernia. CT abd shows peristomal hernia containing small bowel but no evidence for bowel obstruction. - Will consult surgery again as pt's constipation seemsresolved but pain persist. - Cont clear liquid diet now. - Pain medications for pain. (8) UTI (urinary tract infection) Current Visit: Yes Status: Acute Assessment and Plan: Chronic lynne in placed recent UTI with pseudomonas (11/14), suspect catheter related UTI. Plan will switch abx to cefepime 2g iv qd per renal function and culture result Will consult urology to see if patient still need Lynne catheter. (9) Congestive heart disease Current Visit: Yes Status: Chronic Assessment and Plan: patient euvolemic. fluids restriction to 1.5 litters a day. daily with plus strict intake and out continue carvedilol. Stop Lasix because of slightly elevated creatinine (10) Chronic kidney disease Current Visit: Yes Status: Chronic Assessment and Plan: Kidney function slightly improving when compared with DC on 10/31/18. Avoid nephrotoxic medication. We will reassess renal function tomorrow morning. - Creatinine level slightly elevated, will hold Lasix at this point. Patient looks euvolemic (11) Elevated troponin Current Visit: Yes Status: Acute Assessment and Plan: Patient denied chest pain. Elevated troponin likely secondary to CKD. cardiology consult appreciated serial trops adynamic on bb, no further workup at this point. Add ASA (12) Hx of deep venous thrombosis Current Visit: Yes Status: Acute Assessment and Plan: Pt was diagnosed as Right side DVT on 11/04/18, started lovenox and coumadin in [place], however pt developped hematuria on 11/11 and visited our ED. patient off anticoagulation since then. - on heparin subQ now. - Review pt's ABD CT on 11/14 at [facility], patient has IVC filter placed already. DVT Prophylaxis: Heparin SC - Time Spent with Patient Total time spent is greater than 50% in coordination of care (as documented) at patient's floor/unit and/or counseling patient: 30 minutes 25 - 35 minutes Plan of Care Discussed with: patient Internal Medicine: Result - Labs CBC & Chem 7: 11/16/18 08:03 11/16/18 08:03 Labs: Short CBC 11/15/18 11/16/18 Range/Units 13:18 08:03 WBC 4.8 4.6 (4.3-11.1) K/mcL Hgb 10.4 L 9.7 L (11.5-15.4) g/dL Hct 30.7 L 28.9 L (35.3-44.9) % Plt Count 219 190 (140-400) K/mcL Neutrophils # 3.0 2.7 (1.6-8.9) K/mcL BMP 11/15/18 11/16/18 13:18 08:03 Sodium 137 137 Potassium 3.8 3.8 Chloride 101 100 Carbon Dioxide 29 31 H BUN 24 H 24 H Creatinine 1.89 H 1.97 H Glucose 97 81 Calcium 7.8 L 7.8 L Liver Function 11/15/18 Range/Units 13:18 Total Bilirubin 0.4 (0.3-1.0) mg/dL AST 15 (13-39) Units/L ALT 8 (7-52) Units/L Alkaline Phosphatase 38 (34-104) Units/L Albumin 2.5 L (3.5-5.7) g/dL - ABG Interpretation ABG results: PT/INR, D-dimer PT 18.1 Seconds (9.4-12.1) H 11/16/18 08:03 Consult Discharge Plan - Plan Referrals: Alfa Zhou Jr, MD [Primary Care Provider] - (1) Hypertension Qualifiers: Hypertension type: essential hypertension Qualified Code(s): I10 - Essential (primary) hypertension (3) Depression Qualifiers: Depression Type: unspecified Qualified Code(s): F32.9 - Major depressive disorder, single episode, unspecified (4) Diabetes Qualifiers: Diabetes mellitus type: type 2 Diabetes mellitus shelter insulin use: without shelter use Diabetes mellitus complication status: with neurologic complications Diabetes mellitus complication detail: with autonomic neuropathy Qualified Code(s): E11.43 - Type 2 diabetes mellitus with diabetic autonomic (poly)neuropathy (5) CAD (coronary artery disease) Qualifiers: Coronary Disease-Associated Artery/Lesion type: [place] artery Circle vs. transplanted heart: [place] heart Associated angina: without angina Qualified Code(s): I25.10 - Atherosclerotic heart disease of [place] coronary artery without angina pectoris (6) Hypothyroidism Qualifiers: Hypothyroidism type: unspecified Qualified Code(s): E03.9 - Hypothyroidism, unspecified (7) Abdominal pain Qualifiers: Abdominal location: upper abdomen, unspecified Qualified Code(s): R10.10 - Upper abdominal pain, unspecified (8) UTI (urinary tract infection) Qualifiers: Urinary tract infection type: site unspecified Hematuria presence: without hematuria Qualified Code(s): N39.0 - Urinary tract infection, site not specified (9) Congestive heart disease Qualifiers: Heart failure type: unspecified Heart failure chronicity: chronic Qualified Code(s): I50.9 - Heart failure, unspecified (10) Chronic kidney disease Qualifiers: Chronic kidney disease stage: stage 3 (moderate) Qualified Code(s): N18.3 - Chronic kidney disease, stage 3 (moderate)
[2018-11-16 13:02] LABS: Thyroid Stimulating Hormone 4.542 mcIU/mL (0.340-5.600)
--- NOTE | 2018-11-16 13:47 | Urology - Consult Note ---
Date of Encounter: 11/16/18 Time of Encounter: 13:15 - Assessment and Plan (1) UTI (urinary tract infection) Current Visit: Yes Status: Acute Assessment and plan: Patient is an 87-year-old male who presents with a history of pansensitive pseudomonas aeruginosa urinary tract infection. Vital signs are currently stable and afebrile. Renal function is stabilized. Patient is receiving IV cefepime. Qualifiers: Urinary tract infection type: site unspecified Hematuria presence: with hematuria Qualified Code(s): N39.0 - Urinary tract infection, site not specified; R31.9 - Hematuria, unspecified (2) Hematuria Current Visit: Yes Status: Acute Assessment and plan: Patient is an 87-year-old female who presents with gross hematuria. Hematuria is now resolved. Hematuria is likely due to to indwelling Lynne and anticoagulation; however, due to patient's renal function, a noncontrast study was obtained. Patient is unfortunately unable to recall most of her history and is unsure of any pertinent history. We are unsure as to why patient's catheter was placed at the [facility]. Renal function seems improved from patient's recent discharge on 10/31/2018. We will place an order to discontinue patient's catheter at 6 AM tomorrow and replace her catheter if she is unable to void. Qualifiers: Hematuria type: gross Qualified Code(s): R31.0 - Gross hematuria (3) Nephrolithiasis Current Visit: Yes Status: Acute Assessment and plan: Patient is 87-year-old female with history of bilateral nonobstructing nephrolithiasis. There is no obstructing uropathy or hydronephrosis visualized on recent noncontrast CT. Patient's overall health status proposes increased risk for surgical intervention, but Dr. Pozo will further discuss risks versus benefit and management options with patient. Urology CN:HPI Consult date: 11/16/18 Reason for consult Urology: Other (gross hematuria; catheter care) Requesting physician: Nilton Seymour History of present illness: Patient is an 87-year-old female who presents with a history of gross hematuria and urinary tract infection, culture positive for pansensitive pseudomonas aeruginosa. Patient initially presented to [facility] emergency department with complaints of increasing abdominal pain. Patient was recently discharged from [facility] on 10/31/2017 after being treated for Klebsiella pneumonia bacteremia, dehydration, and NOBLE/CKD. Patient has also reportedly been treated for DVT and has undergone anticoagulation with Lovenox. Patient was discharged to extended care facility with oral Augmentin. Patient experienced gross hematuria at the extended care facility on 11/11/2018 that occluded her catheter, and she was brought back to the emergency department on 11/14/2018. Unfortunately, patient is a poor historian and is unable to recall when or why a Lynne catheter was placed. Patient believes Lynne catheter was placed at the extended care facility. Patient underwent a renal ultrasound 10/25/2018 that was unremarkable, and she did not appear to have a Lynne mahendra ter in place at that time. Patient underwent a noncontrast CT of the abdomen and pelvis on 11/14/2018 that revealed bilateral, nonobstructing nephrolithiasis, no hydronephrosis, and an indwelling Lynne catheter. Patient unable to actively participate in history and physical examination. Therefore, the majority of patient's history has been collected from [facility] and [facility] records. Patient is not established with [facility]. Past Med Surg Social Fam HX - Past Medical History Medical history: arthritis, CHF, COPD, coronary artery disease, DVT, diabetes, fibromyalgia, GERD, hyperlipidemia, hypertension, myocardial infarction, renal disease, thyroid disease, other Additional medical history: Chronic diastolic heart failure Psychiatric history: anxiety, depression - Past Surgical History Surgical History: angioplasty/stent, cholecystectomy, colostomy, herniorrhaphy, hysterectomy, orthopedic, other Additional surgical history: HERNIA REPAIR, HYSTERECTOMY, COLON SURGERY, BLADDER REPAIR, CARPEL TUNNEL SURGERY, FX FOOT - Social History Smoking Status: Never smoker Smokeless Tobacco Status: No Alcohol use: none Drug use: none - Additional Family History Additional family history: Noncontributory per patient mental status Medications and Allergies Citalopram Hydrobromide [Citalopram HBr] 10 mg PO DAILY 07/17/15 [History] Carvedilol [Coreg] 12.5 mg PO BID 01/11/18 [History] Cyanocobalamin (B-12) [Vitamin B12] 1,000 mcg PO Q48H 10/25/18 [History] Ferrous Sulfate [Iron] 325 mg PO DAILY 10/25/18 [History] Levothyroxine Sodium 100 mcg PO DAILY 10/25/18 [History] Omeprazole [PriLOSEC] 20 mg PO DAILY 10/25/18 [History] predniSONE [PredniSONE] 10 mg PO DAILY 10/25/18 [History] Cholecalciferol (Vitamin D3) [Vitamin D] 50,000 unit PO TU 11/14/18 [History] Furosemide [Lasix] 20 mg PO DAILY 11/14/18 [History] Oxycodone HCl [Roxybond] 5 mg PO Q4H PRN 11/14/18 [History] Warfarin [Coumadin] 2 mg PO 1800 11/14/18 [History] Docusate [Colace] 100 mg PO BID 11/15/18 [History] Polyethylene Glycol 3350 [MiraLAX] 17 gm PO DAILY PRN 11/15/18 [History] Allergy/AdvReac Type Severity Reaction Status Date / Time trimethoprim Allergy See Verified 11/14/18 03:00 Comments Sulfa (Sulfonamide AdvReac Nausea Verified 11/14/18 03:00 Antibiotics) Review of Systems ROS unobtainable: due to mental status Exam Initial Vital Signs Temp Pulse Resp BP Pulse Ox 97.9 F 58 19 180/71 100 11/14/18 08:30 11/14/18 08:30 11/14/18 08:30 11/14/18 08:30 11/14/18 08:30 - General physical appearance Present: no distress, moderate pain, chronically ill - Eyes Present: PERRL, normal ocular movement - ENT Present: no congestion, decreased hearing - Neck Present: no masses, trachea midline, no lymphadenopathy - Respiratory Present: normal respiratory effort - Cardiovascular Cardiovascular exam IM: RRR - Abdomen Abdomen: Present: tender (diffusely tender), wound (colostomy site benign ). Absent: distended Hernia: Present: incisional (large ventral hernia noted) - Genitourinary Present: other (lynne catheter indwelling and draining clear, yellow urine into bedside bag; scant blood-tinged mucus threads in tubing ) - Neurologic Present: disoriented - Musculoskeletal Present: other (normal posture ) Urology Results - Labs 11/16/18 08:03 11/16/18 08:03 Abnormal lab results RBC 2.98 M/mcL (3.82-4.97) L 11/16/18 08:03 Hgb 9.7 g/dL (11.5-15.4) L 11/16/18 08:03 Hct 28.9 % (35.3-44.9) L 11/16/18 08:03 PT 18.1 Seconds (9.4-12.1) H 11/16/18 08:03 Carbon Dioxide 31 mEq/L (23-29) H 11/16/18 08:03 BUN 24 mg/dL (8-23) H 11/16/18 08:03 Creatinine 1.97 mg/dL (0.60-1.20) H 11/16/18 08:03 Est GFR ( Amer) 29 (> 60) L 11/16/18 08:03 Est GFR (Non-Af Amer) 24 (> 60) L 11/16/18 08:03 POC Glucose 100 mg/dL (70-99) H 11/15/18 20:01 Calcium 7.8 mg/dL (8.6-10.3) L 11/16/18 08:03 Troponin I 0.07 ng/mL (< 0.04) H* 11/15/18 09:57 Serum Total Protein 4.5 g/dL (6.4-8.9) L 11/15/18 13:18 Albumin 2.5 g/dL (3.5-5.7) L 11/15/18 13:18 Globulin 2.0 g/dL (2.4-3.5) L 11/15/18 13:18 Diabetes panel 11/15/18 11/16/18 Range/Units 13:18 08:03 Sodium 137 137 (136-145) mEq/L Potassium 3.8 3.8 (3.5-5.1) mEq/L Chloride 101 100 (98-107) mEq/L Carbon Dioxide 29 31 H (23-29) mEq/L BUN 24 H 24 H (8-23) mg/dL Creatinine 1.89 H 1.97 H (0.60-1.20) mg/dL Glucose 97 81 (70-105) mg/dL Calcium 7.8 L 7.8 L (8.6-10.3) mg/dL AST 15 (13-39) Units/L ALT 8 (7-52) Units/L Alkaline Phosphatase 38 (34-104) Units/L Albumin 2.5 L (3.5-5.7) g/dL Thyroid panel 11/16/18 Range/Units 08:03 TSH 4.542 (0.340-5.600) mcIU/mL Calcium panel 11/15/18 11/16/18 Range/Units 13:18 08:03 Calcium 7.8 L 7.8 L (8.6-10.3) mg/dL Albumin 2.5 L (3.5-5.7) g/dL Pituitary panel 11/15/18 11/16/18 Range/Units 13:18 08:03 Sodium 137 137 (136-145) mEq/L Potassium 3.8 3.8 (3.5-5.1) mEq/L Chloride 101 100 (98-107) mEq/L Carbon Dioxide 29 31 H (23-29) mEq/L BUN 24 H 24 H (8-23) mg/dL Creatinine 1.89 H 1.97 H (0.60-1.20) mg/dL Glucose 97 81 (70-105) mg/dL Calcium 7.8 L 7.8 L (8.6-10.3) mg/dL TSH 4.542 (0.340-5.600) mcIU/mL Adrenal panel 11/15/18 11/16/18 Range/Units 13:18 08:03 Sodium 137 137 (136-145) mEq/L Potassium 3.8 3.8 (3.5-5.1) mEq/L Chloride 101 100 (98-107) mEq/L Carbon Dioxide 29 31 H (23-29) mEq/L BUN 24 H 24 H (8-23) mg/dL Creatinine 1.89 H 1.97 H (0.60-1.20) mg/dL Glucose 97 81 (70-105) mg/dL Calcium 7.8 L 7.8 L (8.6-10.3) mg/dL Total Bilirubin 0.4 (0.3-1.0) mg/dL AST 15 (13-39) Units/L ALT 8 (7-52) Units/L Alkaline Phosphatase 38 (34-104) Units/L Albumin 2.5 L (3.5-5.7) g/dL All other labs normal. - Imaging CT scan - pelvis: report reviewed, image reviewed US - abdomen: report reviewed, image reviewed US - kidney/bladder: report reviewed Consult Discharge Plan - Plan Referrals: Alfa Zhou Jr, MD [Primary Care Provider] -
--- NOTE | 2018-11-16 13:49 | Gastroenterology Consult Note ---
Date of Encounter: 11/16/18 Time of Encounter: 11:05 - Time Spent With Patient Total time spent is greater than 50% in coordination of care (as documented) at patient's floor/unit and/or counseling patient: GI History of Present Illness - Data of Consult Patient: new to practice Consult date: 11/16/18 Requesting Physician: Jude Estes MD - Consult Narrative Reason for consult: Abd pain History of present illness: Ms. 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 She reports chronic back and abdominal pain, but states the abdominal pain has been worsening which is not relieved by pain medications. 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 A/P 11/14/2018 descending colostomy with small peristomal hernia containing small bowel, no obstruction noted. We were consulted to evaluate her abdominal pain. She complains of epigastric pain and constipation. She states she has been having hard, difficult to pass stool. She was started on Colace and MiraLAX. Procedures: None NSAIDs: None Anticoagulation: Coumadin A/P 1. Abdominal pain: CT A/P on 11/11 showed intra/extrahepatic biliary dilation and large stool burden, but repeat CT A/P on 11/14 did not show any biliary dilation and no constipation. Patient with epigastric pain. Increase PPI to BID. Consider EGD, will discuss with Dr. Chi. 2. Constipation:Continue Colace and Miralax. Start daily fiber supplement. Past Med Surg Social Fam HX - Past Medical History Medical history: arthritis, CHF, COPD, coronary artery disease, DVT, diabetes, fibromyalgia, GERD, hyperlipidemia, hypertension, myocardial infarction, renal disease, thyroid disease, other Additional medical history: Chronic diastolic heart failure Psychiatric history: anxiety, depression - Past Surgical History Surgical History: angioplasty/stent, cholecystectomy, colostomy, herniorrhaphy, hysterectomy, orthopedic, other Additional surgical history: HERNIA REPAIR, HYSTERECTOMY, COLON SURGERY, BLADDER REPAIR, CARPEL TUNNEL SURGERY, FX FOOT - Social History Smoking Status: Never smoker Smokeless Tobacco Status: No Alcohol use: none Drug use: none - Gastrointestinal Gastrointestinal: Present: as per HPI - Constitutional Constitutional: as per HPI - EENT Eyes: as per HPI Ears: Present: as per HPI Nose, mouth and throat: Present: as per HPI - Cardiovascular Cardiovascular ROS: Present: as per HPI - Respiratory Respiratory IM: Present: as per HPI - Genitourinary Genitourinary: Absent: change in color, Urinary frequency - Neurological ROS Neurological GI: Present: as per HPI - Hematologic/Lymphatic Hematologic/Lymphatic pediatric: Present: as per HPI - Musculoskeletal Musculoskeletal ROS GI: Present: as per HPI - Integumentary Integumentary GI: Present: as per HPI - Psychiatric ROS Psychiatric GI: Present: as per HPI - Endocrine Endocrine IM: Present: as per HPI - Constitutional Vitals: Temp Pulse Resp BP Pulse Ox 97.8 F 74 18 133/72 99 11/16/18 11:32 11/16/18 11:32 11/16/18 11:32 11/16/18 11:32 11/16/18 11:32 General appearance: Present: cooperative, A&O X 3, no acute distress, answers questions appropriately - Head Head exam: Present: atraumatic, normocephalic - Eye Eye exam: Present: normal appearance, sclera anicteric - ENT ENT exam: Present: mucous membranes dry - Neck Neck exam general surgery: Present: normal inspection, trachea midline - Respiratory Respiratory exam: Present: decreased breath sounds, CTAB. Absent: rales, rhonchi - Cardiovascular Cardiovascular exam: Present: RRR, +S1, +S2 - GI/Abdominal GI/Abdominal exam: Present: soft, tenderness (epigastric tenderness with light palpation), no peritoneal signs. Absent: distended, firm, guarding - Rectal Rectal exam: Present: deferred - Extremities Exam Extremities exam: Present: warm - Neurological Exam Neurological exam: Present: no focal deficits - Psychiatric Psychiatric exam: Present: normal affect, normal mood - Skin Skin exam: Present: dry, intact, normal color, warm Results - Labs CBC & Chem 7: 11/16/18 08:03 11/16/18 08:03 Labs: Last Result Calcium 7.8 mg/dL (8.6-10.3) L 11/16/18 08:03 Troponin I 0.07 ng/mL (< 0.04) H* 11/15/18 09:57 Entire Visit Hgb 9.7 g/dL (11.5-15.4) L 11/16/18 08:03 Hct 28.9 % (35.3-44.9) L 11/16/18 08:03 PT 18.1 Seconds (9.4-12.1) H 11/16/18 08:03 Total Bilirubin 0.4 mg/dL (0.3-1.0) 11/15/18 13:18 AST 15 Units/L (13-39) 11/15/18 13:18 ALT 8 Units/L (7-52) 11/15/18 13:18 Lipase 15 Units/L (11-82) 11/15/18 13:18 - ABG ABG results: PT/INR, D-dimer PT 18.1 Seconds (9.4-12.1) H 11/16/18 08:03 Consult Discharge Plan - Plan Referrals: Alfa Zhou Jr, MD [Primary Care Provider] -
--- NOTE | 2018-11-16 14:34 | Event Note ---
<Antoni Vick - Last Filed: 11/16/18 14:29> Date of Encounter: 11/16/18 Time of Encounter: 14:29 Pt was seen and examined for persistent abdominal pain, despite treatment of constipation with Miralax and Milk of Magnesia. Pt has parastomal hernia and reducible ventral hernia, along with colostomy. Pt reports generalized abdominal discomfort, but exhibits only mild tenderness to palpation, without evidence of guarding, rebound tenderness, rigidity. Bowel sounds are present, and patient reports she passed gas this morning. Colostomy site contains watery, soft stool s/p miralax and milk of mag. Pt's notes that "she does not want anymore surgeries" regarding hernia repair, and at this time patient is not in need or surgical procedure. Otherwise, pt is afebrile without leukocytosis. Vitals stable. Lab work benign. Recommend medical management and optimization of pain control. <Mahamed Arnold - Last Filed: 11/16/18 14:47> Date of Encounter: 11/16/18 - Attending Attestation I examined this patient and my medical decision-making was reviewed with the Resident Physician. I agree with the documented findings, disposition and treatment plan as described except to the extent set forth below.
[2018-11-16] MEDS: Pantoprazole 40 MG VIAL IVP SCH (17:48)
[2018-11-16] MEDS ORDERED: *HR* OxyCODONE/APAP 10/325 TABLET PO PRN (19:11)
[2018-11-16] MEDS: D5% in 0.45% NACL 1,000 ML IVC SCH (21:06)
[2018-11-17] MEDS: Insulin LISPRO 300 UNITS/3 ML VIAL SQ SCH ×4 (00:46→17:26)
[2018-11-17] MEDS ORDERED: Acetaminophen IV 500 MG/50 ML INFUS..BTL IVPB ONE (00:51)
[2018-11-17 05:29] LABS: Basophils % 0.3 %; Eosinophils # 0.1 K/mcL (0.0-0.6); Eosinophils % 1.7 %; Hematocrit 28.1 % (35.3-44.9); Hemoglobin 9.6 g/dL (11.5-15.4); Immature Granulocytes % 0.6 % (0-4); Lymphocytes # 1.3 K/mcL (0.6-4.6); Mean Corpuscular HGB Conc 34.2 g/dL (31.6-35.5); Mean Corpuscular Hemoglobin 32.8 pg (28.0-33.3); Mean Corpuscular Volume 95.9 fL (83.0-100.0); Mean Platelet Volume 9.9 fL (9.4-12.4); Monocytes # 0.6 K/mcL (0.0-1.3); Monocytes % 9.5 %; Neutrophils # 4.6 K/mcL (1.6-8.9); Platelet Count 191 K/mcL (140-400); Red Blood Count 2.93 M/mcL (3.82-4.97); Red Cell Distribution Width 13.8 % (11.5-14.5); Segmented Neutrophils % 68.9 %
[2018-11-17 05:45] LABS: Calcium 7.8 mg/dL (8.6-10.3); Potassium 3.6 mEq/L (3.5-5.1)
[2018-11-17] MEDS: Cefepime HCl 1,000 MG in Water for inj. (sterile) 20 ML 10 ML IVP SCH ×2 (05:53→17:20)
[2018-11-17] MEDS: *HR* Heparin 5,000 UNIT/ML VIAL SQ SCH ×2 (05:54→17:23)
[2018-11-17] MEDS: Pantoprazole 40 MG VIAL IVP SCH ×2 (05:54→17:22)
[2018-11-17] MEDS: Aspirin Enteric Coated 81 MG Tablet PO SCH (11:25)
[2018-11-17] MEDS: amLODIPine 5 MG TABLET PO SCH (11:26)
[2018-11-17] MEDS: OXYCODONE Oral CONC 10 MG/0.5 ML ORAL.SYG SL PRN ×2 (11:31→21:27)
[2018-11-17] MEDS: D5% in 0.45% NACL 1,000 ML IVC SCH (11:38)
--- NOTE | 2018-11-17 12:07 | Internal Med Progress Note ---
Hospitalist Progress Note - Encounter Date of Encounter: 11/17/18 Time of Encounter: 09:00 - Subjective Interval History: Pt still has abd pain, needs pain medication. No nausea/vomiting. No fever. RN report pt has cough on eating, will keep NPO and consult speech therapy for swallow evaluation. GI saw pt, plan for EGD. - Exam Vitals: Temp Pulse Resp BP Pulse Ox 98.3 F 84 18 170/71 96 11/17/18 11:48 11/17/18 11:48 11/17/18 11:48 11/17/18 11:48 11/17/18 11:48 Exam: Vitals: Reviewed General: Alert and oriented x4. In mild distress due to abdominal and back pain. Skin: Normal color, no rash, no lesions. HEENT: EOM, pupils equal, round and reactive. Cardiovascular: RRR, normal S1 & S2, no rubs, murmurs or gallops. Lungs: CTA b/l, no wheezes or crackles. Abdomen: Soft, generalized tendernes, no rigidity or guarding or rebound. Ostomy bag with liquid stool. Extremities: No edema. Neurological: Normal cognition Pulses:Carotid and radial pulses normal +2. Rest of the physical exam is non contributory - Assessment and Plan (1) Hypertension Current Visit: No Status: Chronic Assessment and Plan: Blood pressure suboptimally controlled. Patient is on furosemide and carvedilol. Hydralazine IV Q6HR PRN for SBP >160. Cont pain control. (2) DVT prophylaxis Current Visit: No Status: Acute Assessment and Plan: Started on heparin subcutaneous at this point (3) Depression Current Visit: No Status: Chronic Assessment and Plan: Continue citalopram 20 mg by mouth daily. (4) Diabetes Current Visit: No Status: Chronic Assessment and Plan: NPO now, on D5+0.45% NS at 75 ml/hr, SSI q6hr (5) CAD (coronary artery disease) Current Visit: No Status: Chronic Assessment and Plan: Patient is not on antiplatelet due to history of GI bleed and hematuria. Patient has no further signs of bleeding. Will restart ASA 81 mg daily (6) Hypothyroidism Current Visit: No Status: Chronic Assessment and Plan: Continue levothyroxine 100 mcg/Po daily. Recheck TSH wnl (7) Abdominal pain Current Visit: Yes Status: Acute Assessment and Plan: Pt remains having abd pain, mainly on the LUQ with hard lump palpiable, likely hernia. CT abd shows peristomal hernia containing small bowel but no evidence for bowel obstruction. - Surgical consult appreciated, pt has ventral hernia, no obstruction, pt refuse surgery at this point, recommend cont pain control. - GI saw pt, plan for EGD to r/o ulcer/malignancy, etc. - Pain medications for pain at this point. (8) UTI (urinary tract infection) Current Visit: Yes Status: Acute Assessment and Plan: Chronic lynne in placed recent UTI with pseudomonas (11/14), suspect catheter related UTI. Plan Cont cefepime 2g iv qd per renal function and culture result Urology saw pt, Lynne discontinued, pt void well per RN. (9) Congestive heart disease Current Visit: Yes Status: Chronic Assessment and Plan: patient euvolemic. fluids restriction to 1.5 litters a day. daily with plus strict intake and out continue carvedilol. Stop Lasix because of slightly elevated creatinine and pt has poor intake, on low rate D5 1/2 NS. (10) Chronic kidney disease Current Visit: Yes Status: Chronic Assessment and Plan: Kidney function slightly improving when compared with DC on 10/31/18. Avoid nephrotoxic medication. We will reassess renal function tomorrow morning. - Creatinine level generally stable, will hold Lasix at this point, low rate IVF as pt is NPO. Patient looks euvolemic (11) Elevated troponin Current Visit: Yes Status: Acute Assessment and Plan: Patient denied chest pain. Elevated troponin likely secondary to CKD. cardiology consult appreciated serial trops adynamic on bb, no further workup at this point. Add ASA (12) Hx of deep venous thrombosis Current Visit: Yes Status: Acute Assessment and Plan: Pt was diagnosed as Right side DVT on 11/04/18, started lovenox and coumadin in [place], however pt developped hematuria on 11/11 and visited our ED. patient off anticoagulation since then. - on heparin subQ now. - Review pt's ABD CT on 11/14 at [facility], patient has IVC filter placed already. DVT Prophylaxis: Heparin SC - Time Spent with Patient Total time spent is greater than 50% in coordination of care (as documented) at patient's floor/unit and/or counseling patient: 25 - 35 minutes Plan of Care Discussed with: patient Internal Medicine: Result - Labs CBC & Chem 7: 11/17/18 04:44 11/17/18 04:44 Labs: Short CBC 11/17/18 Range/Units 04:44 WBC 6.6 (4.3-11.1) K/mcL Hgb 9.6 L (11.5-15.4) g/dL Hct 28.1 L (35.3-44.9) % Plt Count 191 (140-400) K/mcL Neutrophils # 4.6 (1.6-8.9) K/mcL BMP 11/16/18 11/17/18 08:03 04:44 Sodium 137 138 Potassium 3.8 3.6 Chloride 100 101 Carbon Dioxide 31 H 27 BUN 24 H 22 Creatinine 1.97 H 2.03 H Glucose 81 87 Calcium 7.8 L 7.8 L - ABG Interpretation ABG results: PT/INR, D-dimer PT 18.1 Seconds (9.4-12.1) H 11/16/18 08:03 Consult Discharge Plan - Plan Referrals: Alfa Zhou Jr, MD [Primary Care Provider] - (1) Hypertension Qualifiers: Hypertension type: essential hypertension Qualified Code(s): I10 - Essential (primary) hypertension (3) Depression Qualifiers: Depression Type: unspecified Qualified Code(s): F32.9 - Major depressive disorder, single episode, unspecified (4) Diabetes Qualifiers: Diabetes mellitus type: type 2 Diabetes mellitus exterminator insulin use: without exterminator use Diabetes mellitus complication status: with neurologic complications Diabetes mellitus complication detail: with autonomic neuropathy Qualified Code(s): E11.43 - Type 2 diabetes mellitus with diabetic autonomic (poly)neuropathy (5) CAD (coronary artery disease) Qualifiers: Coronary Disease-Associated Artery/Lesion type: gray[place] artery [place] vs. transplanted heart: grayling heart Associated angina: without angina Qualified Code(s): I25.10 - Atherosclerotic heart disease of grayling coronary artery without angina pectoris (6) Hypothyroidism Qualifiers: Hypothyroidism type: unspecified Qualified Code(s): E03.9 - Hypothyroidism, unspecified (7) Abdominal pain Qualifiers: Abdominal location: upper abdomen, unspecified Qualified Code(s): R10.10 - Upper abdominal pain, unspecified (8) UTI (urinary tract infection) Qualifiers: Urinary tract infection type: site unspecified Hematuria presence: with hematuria Qualified Code(s): N39.0 - Urinary tract infection, site not specified; R31.9 - Hematuria, unspecified (9) Congestive heart disease Qualifiers: Heart failure type: unspecified Heart failure chronicity: chronic Qualified Code(s): I50.9 - Heart failure, unspecified (10) Chronic kidney disease Qualifiers: Chronic kidney disease stage: stage 3 (moderate) Qualified Code(s): N18.3 - Chronic kidney disease, stage 3 (moderate)
[2018-11-17] MEDS ORDERED: *HR* Propofol 200 MG/20 ML VIAL IVP ONE (12:49)
[2018-11-17] MEDS ORDERED: Lidocaine -MPF 2% 2 ML VIAL ONE (12:50)
--- NOTE | 2018-11-17 13:05 | Urology Progress Note ---
Date of Encounter: 11/17/18 Time of Encounter: 12:10 - Assessment and Plan (1) UTI (urinary tract infection) Current Visit: Yes Status: Acute Assessment and plan: Patient is an 87-year-old female who presents with catheter associated urinary tract infection with pansensitive pseudomonas aeruginosa. Vital signs are stable and afebrile. Pal catheter has been removed, and patient is voiding efficiently. Patient is receiving IV cefepime. Dr. Pozo will be in to reevaluate patient later today. Qualifiers: Urinary tract infection type: site unspecified Hematuria presence: with hematuria Qualified Code(s): N39.0 - Urinary tract infection, site not specified; R31.9 - Hematuria, unspecified Progress Note Narrative: Patient seen and examined lying in bed in no apparent distress. Pal catheter has been discontinued, and she is voiding without difficulty. Patient is incontinent and is using purewick female external catheter. Objective Initial Vital Signs Temp Pulse Resp BP Pulse Ox 97.9 F 58 19 180/71 100 11/14/18 08:30 11/14/18 08:30 11/14/18 08:30 11/14/18 08:30 11/14/18 08:30 - General physical appearance Present: no distress, moderate pain, chronically ill - Respiratory Present: normal expansion, normal respiratory effort - Abdomen Present: soft, tender (periostomal ventral hernia ) - Genitourinary Urine Appearance: Present: Clear - Integumentary Present: no rash, no abnormal pigmentation - Musculoskeletal Present: normal posture - Psychiatric Present: oriented to time, oriented to person, oriented to place, speech is normal. Absent: memory intact - Labs 11/17/18 04:44 11/17/18 04:44 Diabetes panel 11/17/18 Range/Units 04:44 Sodium 138 (136-145) mEq/L Potassium 3.6 (3.5-5.1) mEq/L Chloride 101 (98-107) mEq/L Carbon Dioxide 27 (23-29) mEq/L BUN 22 (8-23) mg/dL Creatinine 2.03 H (0.60-1.20) mg/dL Glucose 87 (70-105) mg/dL Calcium 7.8 L (8.6-10.3) mg/dL Calcium panel 11/17/18 Range/Units 04:44 Calcium 7.8 L (8.6-10.3) mg/dL Pituitary panel 11/17/18 Range/Units 04:44 Sodium 138 (136-145) mEq/L Potassium 3.6 (3.5-5.1) mEq/L Chloride 101 (98-107) mEq/L Carbon Dioxide 27 (23-29) mEq/L BUN 22 (8-23) mg/dL Creatinine 2.03 H (0.60-1.20) mg/dL Glucose 87 (70-105) mg/dL Calcium 7.8 L (8.6-10.3) mg/dL Adrenal panel 11/17/18 Range/Units 04:44 Sodium 138 (136-145) mEq/L Potassium 3.6 (3.5-5.1) mEq/L Chloride 101 (98-107) mEq/L Carbon Dioxide 27 (23-29) mEq/L BUN 22 (8-23) mg/dL Creatinine 2.03 H (0.60-1.20) mg/dL Glucose 87 (70-105) mg/dL Calcium 7.8 L (8.6-10.3) mg/dL Consult Discharge Plan - Plan Referrals: Alfa Zhou Jr, MD [Primary Care Provider] -
[2018-11-17] MEDS ORDERED: *HR* FentaNYL (PF) 100 MCG/2 ML VIAL ONE (13:07)
--- NOTE | 2018-11-17 13:40 | Anesthesia Evaluation PreOp ---
Date of Encounter: 11/17/18 Time of Encounter: 13:38 - Past History Planned Operation: EGD Cardiac History: HTN, Hyperlipidemia, Other (Per cardiology: -Troponins 0.07 x2, 0.08, 0.06, 0.07 in the setting of UTI. Of note, appears to have chronically elevated troponins. -Denies chest pain, angina. -ECG with no acute ischemic changes noted. -TTE 10/29/18 with LVEF 65%, moderate diastolic dysfunction, moderately dilated left atrium, mild , mild MR, mild-moderate TR, mild- moderate MO, severe PH, no wall motion abnormalities noted -C 06/2016 with 90% ostial LAD, circ with patent stents from previous procedure, 20% prox RCA, 40% RPDA. Patient underwent high risk PCI to ostial LAD at [facility] 06/2016.) Pulmonary History: Denies Any Significant HX [employer]STRU[employer]IP[employer]CH[employer]IC History: Other (anxiety, depression, fibromyalgia) Other Medical History: Diabetes Type II, Thyroid (hypo), Other Anesthesia History: No Prior Anesthetic Complications, Past Anesthesia (angioplasty/stent, cholecystectomy, colostomy, herniorrhaphy, hysterectomy, orthopedic, other Additional surgical history: HERNIA REPAIR, HYSTERECTOMY, COLON SURGERY, BLADDER REPAIR, CARPEL TUNNEL SURGERY, FX FOOT) Alcohol Use: none Drug use: none Medications and Allergies Citalopram Hydrobromide [Citalopram HBr] 10 mg PO DAILY 07/17/15 [History] Carvedilol [Coreg] 12.5 mg PO BID 01/11/18 [History] Cyanocobalamin (B-12) [Vitamin B12] 1,000 mcg PO Q48H 10/25/18 [History] Ferrous Sulfate [Iron] 325 mg PO DAILY 10/25/18 [History] Levothyroxine Sodium 100 mcg PO DAILY 10/25/18 [History] Omeprazole [PriLOSEC] 20 mg PO DAILY 10/25/18 [History] predniSONE [PredniSONE] 10 mg PO DAILY 10/25/18 [History] Cholecalciferol (Vitamin D3) [Vitamin D] 50,000 unit PO TU 11/14/18 [History] Furosemide [Lasix] 20 mg PO DAILY 11/14/18 [History] Oxycodone HCl [Roxybond] 5 mg PO Q4H PRN 11/14/18 [History] Warfarin [Coumadin] 2 mg PO 1800 11/14/18 [History] Docusate [Colace] 100 mg PO BID 11/15/18 [History] Polyethylene Glycol 3350 [MiraLAX] 17 gm PO DAILY PRN 11/15/18 [History] Allergy/AdvReac Type Severity Reaction Status Date / Time trimethoprim Allergy See Verified 11/14/18 03:00 Comments Sulfa (Sulfonamide AdvReac Nausea Verified 11/14/18 03:00 Antibiotics) - Meds/Allergy Pre-op Review Medications Reviewed: Yes Allergies Reviewed: Yes Beta Blockers on Current Med List: Yes (not given today on the floor) Anesthesia Results - Labs 11/17/18 04:44 11/17/18 04:44 - Imaging EKG: report reviewed (Sinus rhythm Atrial premature complex Borderline left axis deviation Nonspecific ST-T changes Electronically Signed On 11-16-2018 16:13:31 EDT by Deng Tavarez) Anesthesia Exam Vital Signs/O2 Sat, Most Current Temp Pulse Resp BP Pulse Ox 98.3 F 84 18 170/71 96 11/17/18 11:48 11/17/18 11:48 11/17/18 11:48 11/17/18 11:48 11/17/18 11:48 Weight: 56kg NPO (# of Hours): >8 - HEENT Pupil (Motor): Pupils equal - CONSTRU[employer]IPMENT [employer]CH[employer]IC LOC: Confused (not oriented to person, place or time, moves all extremeties) - Cardiac Rhythm: Regular - Pulmonary Breath Sounds: bilateral Clear Respiratory Effort: Symmetrical Anesthesia Assess/Plan ASA Score: 3 Level of consciousness: Anxious, Agitated Anesthetic Plan: MAC (pt is confused, consent was obtained from son on Miguel Chilel who is the POA) Monitoring Plan: Standard Monitors Recovery Plan: PACU
[2018-11-17] MEDS ORDERED: Simethicone 40 MG/0.6 ML MLS IR ONE (14:05)
--- NOTE | 2018-11-17 14:38 | Anesthesia Evaluation Post Op ---
Date of Encounter: 11/17/18 Time of Encounter: 14:37 - Vital Signs Vital Signs: Vital Signs/O2 Sat, Most Current Temp Pulse Resp BP Pulse Ox 98.3 F 84 22 165/75 94 11/17/18 11:48 11/17/18 13:56 11/17/18 13:56 11/17/18 13:56 11/17/18 13:56 see nursing notes - Lungs Lungs: Clear Ascult./Percussion - Airway Airway: Non-obstructed - Cardiovascular Regular Rate - Mental Status Mental Status: Confused, Baseline Status - Nausea Vomiting Nausea Vomiting: Not Present - Hydration Hydration: NPO - Discharge PostOp Status: Transfer Patient to floor
[2018-11-18] MEDS: Insulin LISPRO 300 UNITS/3 ML VIAL SQ SCH ×4 (01:45→18:27)
[2018-11-18] MEDS: D5% in 0.45% NACL 1,000 ML IVC SCH ×2 (02:02→12:38)
[2018-11-18 04:21] LABS: Basophils % 0.3 %; Eosinophils # 0.1 K/mcL (0.0-0.6); Eosinophils % 1.5 %; Hematocrit 27.5 % (35.3-44.9); Hemoglobin 9.5 g/dL (11.5-15.4); Immature Granulocytes % 0.9 % (0-4); Lymphocytes # 1.3 K/mcL (0.6-4.6); Lymphocytes % 17.7 %; Mean Corpuscular HGB Conc 34.5 g/dL (31.6-35.5); Mean Corpuscular Hemoglobin 32.8 pg (28.0-33.3); Mean Corpuscular Volume 94.8 fL (83.0-100.0); Monocytes # 0.6 K/mcL (0.0-1.3); Monocytes % 8.2 %; Neutrophils # 5.4 K/mcL (1.6-8.9); Platelet Count 219 K/mcL (140-400); Red Cell Distribution Width 13.8 % (11.5-14.5); Segmented Neutrophils % 71.4 %
[2018-11-18 04:41] LABS: Albumin 2.5 g/dL (3.5-5.7); Albumin/Globulin Ratio 1.1 (1.1-2.2); Bilirubin,Total 0.5 mg/dL (0.3-1.0); Globulin 2.2 g/dL (2.4-3.5); Potassium 3.4 mEq/L (3.5-5.1); Total Protein 4.7 g/dL (6.4-8.9)
[2018-11-18] MEDS: *HR* Heparin 5,000 UNIT/ML VIAL SQ SCH ×2 (06:07→17:41)
[2018-11-18] MEDS: Cefepime HCl 1,000 MG in Water for inj. (sterile) 20 ML 10 ML IVP SCH ×2 (06:08→17:42)
[2018-11-18] MEDS: Pantoprazole 40 MG VIAL IVP SCH ×2 (06:09→10:50)
--- NOTE | 2018-11-18 08:20 | Urology Progress Note ---
<SilvianohalleyTerra james N - Last Filed: 11/18/18 08:18> Date of Encounter: 11/18/18 Time of Encounter: 07:40 - Assessment and Plan (1) UTI (urinary tract infection) Current Visit: Yes Status: Acute Assessment and plan: Patient is an 87-year-old female who presents with pansensitive pseudomonas aeruginosa urinary tract infection. Vital signs are stable and afebrile, although, patient is hypertensive. Serum creatinine trended down to 1.81. Patient is receiving IV cefepime. Urology will continue to follow. Qualifiers: Urinary tract infection type: site unspecified Hematuria presence: with hematuria Qualified Code(s): N39.0 - Urinary tract infection, site not specified; R31.9 - Hematuria, unspecified Progress Note Narrative: Patient seen and examined lying in bed in apparent distress. Patient reports continued abdominal pain. Pure with external catheter with 200 mL of clear, transparent, light yellow urine. Objective Initial Vital Signs Temp Pulse Resp BP Pulse Ox 97.9 F 58 19 180/71 100 11/14/18 08:30 11/14/18 08:30 11/14/18 08:30 11/14/18 08:30 11/14/18 08:30 - General physical appearance Present: no distress, moderate pain - Respiratory Present: normal expansion, normal respiratory effort - Abdomen Present: soft (Large periostomal ventral hernia ), tender - Genitourinary Urine Appearance: Present: Clear - Integumentary Present: no rash, no abnormal pigmentation - Musculoskeletal Present: other (no pedal edema ) - Psychiatric Present: oriented to time, oriented to person, oriented to place, speech is normal - Labs 11/18/18 03:23 11/18/18 03:23 Diabetes panel 11/18/18 Range/Units 03:23 Sodium 137 (136-145) mEq/L Potassium 3.4 L (3.5-5.1) mEq/L Chloride 104 (98-107) mEq/L Carbon Dioxide 29 (23-29) mEq/L BUN 20 (8-23) mg/dL Creatinine 1.81 H (0.60-1.20) mg/dL Glucose 110 H (70-105) mg/dL Calcium 8.0 L (8.6-10.3) mg/dL AST 24 (13-39) Units/L ALT 9 (7-52) Units/L Alkaline Phosphatase 38 (34-104) Units/L Albumin 2.5 L (3.5-5.7) g/dL Calcium panel 11/18/18 Range/Units 03:23 Calcium 8.0 L (8.6-10.3) mg/dL Albumin 2.5 L (3.5-5.7) g/dL Pituitary panel 11/18/18 Range/Units 03:23 Sodium 137 (136-145) mEq/L Potassium 3.4 L (3.5-5.1) mEq/L Chloride 104 (98-107) mEq/L Carbon Dioxide 29 (23-29) mEq/L BUN 20 (8-23) mg/dL Creatinine 1.81 H (0.60-1.20) mg/dL Glucose 110 H (70-105) mg/dL Calcium 8.0 L (8.6-10.3) mg/dL Adrenal panel 11/18/18 Range/Units 03:23 Sodium 137 (136-145) mEq/L Potassium 3.4 L (3.5-5.1) mEq/L Chloride 104 (98-107) mEq/L Carbon Dioxide 29 (23-29) mEq/L BUN 20 (8-23) mg/dL Creatinine 1.81 H (0.60-1.20) mg/dL Glucose 110 H (70-105) mg/dL Calcium 8.0 L (8.6-10.3) mg/dL Total Bilirubin 0.5 (0.3-1.0) mg/dL AST 24 (13-39) Units/L ALT 9 (7-52) Units/L Alkaline Phosphatase 38 (34-104) Units/L Albumin 2.5 L (3.5-5.7) g/dL Consult Discharge Plan - Plan Referrals: Alfa Zhou Jr, MD [Primary Care Provider] - <Tyler Pozo - Last Filed: 11/18/18 12:33> Date of Encounter: 11/18/18 Objective Initial Vital Signs Temp Pulse Resp BP Pulse Ox 97.9 F 58 19 180/71 100 11/14/18 08:30 11/14/18 08:30 11/14/18 08:30 11/14/18 08:30 11/14/18 08:30 - Labs 11/18/18 03:23 11/18/18 03:23 Diabetes panel 11/18/18 Range/Units 03:23 Sodium 137 (136-145) mEq/L Potassium 3.4 L (3.5-5.1) mEq/L Chloride 104 (98-107) mEq/L Carbon Dioxide 29 (23-29) mEq/L BUN 20 (8-23) mg/dL Creatinine 1.81 H (0.60-1.20) mg/dL Glucose 110 H (70-105) mg/dL Calcium 8.0 L (8.6-10.3) mg/dL AST 24 (13-39) Units/L ALT 9 (7-52) Units/L Alkaline Phosphatase 38 (34-104) Units/L Albumin 2.5 L (3.5-5.7) g/dL Calcium panel 11/18/18 Range/Units 03:23 Calcium 8.0 L (8.6-10.3) mg/dL Albumin 2.5 L (3.5-5.7) g/dL Pituitary panel 11/18/18 Range/Units 03:23 Sodium 137 (136-145) mEq/L Potassium 3.4 L (3.5-5.1) mEq/L Chloride 104 (98-107) mEq/L Carbon Dioxide 29 (23-29) mEq/L BUN 20 (8-23) mg/dL Creatinine 1.81 H (0.60-1.20) mg/dL Glucose 110 H (70-105) mg/dL Calcium 8.0 L (8.6-10.3) mg/dL Adrenal panel 11/18/18 Range/Units 03:23 Sodium 137 (136-145) mEq/L Potassium 3.4 L (3.5-5.1) mEq/L Chloride 104 (98-107) mEq/L Carbon Dioxide 29 (23-29) mEq/L BUN 20 (8-23) mg/dL Creatinine 1.81 H (0.60-1.20) mg/dL Glucose 110 H (70-105) mg/dL Calcium 8.0 L (8.6-10.3) mg/dL Total Bilirubin 0.5 (0.3-1.0) mg/dL AST 24 (13-39) Units/L ALT 9 (7-52) Units/L Alkaline Phosphatase 38 (34-104) Units/L Albumin 2.5 L (3.5-5.7) g/dL
[2018-11-18] MEDS: Aspirin Enteric Coated 81 MG Tablet PO SCH (08:32)
[2018-11-18] MEDS: amLODIPine 5 MG TABLET PO SCH (08:33)
[2018-11-18] MEDS: OXYCODONE Oral CONC 10 MG/0.5 ML ORAL.SYG SL PRN ×2 (08:34→13:45)
[2018-11-18] MEDS ORDERED: *HR* FentaNYL (PF) 100 MCG/2 ML VIAL IVP ONE (10:19)
--- NOTE | 2018-11-18 13:24 | Internal Med Progress Note ---
Hospitalist Progress Note - Encounter Date of Encounter: 11/18/18 Time of Encounter: 13:22 - Subjective Interval History: Pt confused this AM and almost continuously moaning in pain. Later in day, son present and reports that she is worse than previous but does always have pain and potentially we are just undertreating it. She did finally go to sleep in the afternoon with a dose of breakthrough pain meds. - Exam Vitals: Temp Pulse Resp BP Pulse Ox 98 F 83 16 193/80 90 11/18/18 04:08 11/18/18 07:34 11/18/18 04:08 11/18/18 07:34 11/18/18 04:08 Exam: General: NAD but groaning continuously, poor eye contact, elderly and frail Thoracic: Normal breath sounds b/l, no wheezing or crackles Cardio: Normal S1 and S2, regular rate and rhythm, no murmurs Abdomen: Soft, nontender, nondistended, no focal tenderness on exam but patient is very resistant to palpation. Does have ostomy bag L abd appears normal. Extremities: Warm, well perfused. DP pulses 2+ b/l. No edema. Skin: Intact. No rashes, bruises, or ulcers Neuro: Awake, disoriented. Speech fluent - Assessment and Plan (1) Abdominal pain Current Visit: Yes Status: Acute Assessment and Plan: Pt remains having abd pain, diffusely. Does have obvious hernia on exam. CT abd shows peristomal hernia containing small bowel but no evidence for bowel obstruction. - Surgical consult appreciated, pt has ventral hernia, no obstruction, pt refuse surgery at this point, recommend cont pain control. - GI saw pt, underwent EGD which showed gastric inflammation and congestion, started on PPI and biopsies taken, awaiting biopsy results - increase pain medications to oxycodone 5 q4h prn pain with fentanyl 50 mcg for breakthrough as pt finally able to sleep with increased pain meds (2) UTI (urinary tract infection) Current Visit: Yes Status: Acute Assessment and Plan: Chronic lynne in placed recent UTI with pseudomonas (11/14), suspect catheter related UTI. Plan Cont cefepime 2g iv qd per renal function and culture result, last day 11/22 Urology saw pt, Lynne discontinued, pt void well per RN. (3) Hypertension Current Visit: No Status: Chronic Assessment and Plan: Blood pressure remains suboptimally controlled. Patient is on furosemide and carvedilol. Hydralazine IV Q6HR PRN for SBP >160. Focus today on improved pain control. (4) Depression Current Visit: No Status: Chronic Assessment and Plan: Continue citalopram 20 mg by mouth daily. (5) Diabetes Current Visit: No Status: Chronic Assessment and Plan: NPO now, on D5+0.45% NS at 75 ml/hr, SSI q6hr (6) CAD (coronary artery disease) Current Visit: No Status: Chronic Assessment and Plan: Patient is not on statin. No signs of bleeding so ASA 81 mg daily resumed (7) Hypothyroidism Current Visit: No Status: Chronic Assessment and Plan: Continue levothyroxine 100 mcg/Po daily. Rechecked TSH wnl (8) Congestive heart disease Current Visit: Yes Status: Chronic Assessment and Plan: Patient euvolemic, continue fluid restriction to 1.5L and strict I&Os, continue coreg, holding home lasix (9) Chronic kidney disease Current Visit: Yes Status: Chronic Assessment and Plan: Kidney function slightly improving when compared with DC on 10/31/18. Avoid nephrotoxic medication. Monitor daily. Holding lasix. (10) Hx of deep venous thrombosis Current Visit: Yes Status: Acute Assessment and Plan: Pt was diagnosed as Right side DVT on 11/04/18, started lovenox and coumadin in [place], however pt developped hematuria on 11/11 and visited our ED. patient off anticoagulation since then. - on heparin subQ now - Review pt's ABD CT on 11/14 at [facility], patient has IVC filter placed already. Internal Medicine: Result - Labs CBC & Chem 7: 11/18/18 03:23 11/18/18 03:23 Labs: Short CBC 11/18/18 Range/Units 03:23 WBC 7.5 (4.3-11.1) K/mcL Hgb 9.5 L (11.5-15.4) g/dL Hct 27.5 L (35.3-44.9) % Plt Count 219 (140-400) K/mcL Neutrophils # 5.4 (1.6-8.9) K/mcL BMP 11/18/18 03:23 Sodium 137 Potassium 3.4 L Chloride 104 Carbon Dioxide 29 BUN 20 Creatinine 1.81 H Glucose 110 H Calcium 8.0 L Liver Function 11/18/18 Range/Units 03:23 Total Bilirubin 0.5 (0.3-1.0) mg/dL AST 24 (13-39) Units/L ALT 9 (7-52) Units/L Alkaline Phosphatase 38 (34-104) Units/L Albumin 2.5 L (3.5-5.7) g/dL - ABG Interpretation ABG results: PT/INR, D-dimer PT 18.1 Seconds (9.4-12.1) H 11/16/18 08:03 Consult Discharge Plan - Plan Referrals: Alfa Zhou Jr, MD [Primary Care Provider] - __ (1) Abdominal pain Qualifiers: Abdominal location: upper abdomen, unspecified Qualified Code(s): R10.10 - Upper abdominal pain, unspecified (2) UTI (urinary tract infection) Qualifiers: Urinary tract infection type: site unspecified Hematuria presence: with hematuria Qualified Code(s): N39.0 - Urinary tract infection, site not specified; R31.9 - Hematuria, unspecified (3) Hypertension Qualifiers: Hypertension type: essential hypertension Qualified Code(s): I10 - Essential (primary) hypertension (4) Depression Qualifiers: Depression Type: unspecified Qualified Code(s): F32.9 - Major depressive disorder, single episode, unspecified (5) Diabetes Qualifiers: Diabetes mellitus type: type 2 Diabetes mellitus half-way insulin use: without terminal carman use Diabetes mellitus complication status: with neurologic complications Diabetes mellitus complication detail: with autonomic neuropathy Qualified Code(s): E11.43 - Type 2 diabetes mellitus with diabetic autonomic (poly)neuropathy (6) CAD (coronary artery disease) Qualifiers: Coronary Disease-Associated Artery/Lesion type: [place] artery [place] vs. transplanted heart: [place] heart Associated angina: without angina Qualified Code(s): I25.10 - Atherosclerotic heart disease of [place] coronary artery without angina pectoris (7) Hypothyroidism Qualifiers: Hypothyroidism type: unspecified Qualified Code(s): E03.9 - Hypothyroidism, unspecified (8) Congestive heart disease Qualifiers: Heart failure type: unspecified Heart failure chronicity: chronic Qualified Code(s): I50.9 - Heart failure, unspecified (9) Chronic kidney disease Qualifiers: Chronic kidney disease stage: stage 3 (moderate) Qualified Code(s): N18.3 - Chronic kidney disease, stage 3 (moderate)
[2018-11-18] MEDS ORDERED: Haloperidol Lactate 5 MG/ML VIAL IVP ONE (14:03)
[2018-11-18] MEDS: Ondansetron 4 MG/2 ML VIAL IVP PRN (14:10)
[2018-11-18] MEDS ORDERED: *HR* FentaNYL (PF) 100 MCG/2 ML VIAL IVP PRN (16:34)
[2018-11-18] MEDS ORDERED: *HR* LORazepam 2 MG/ML VIAL IVP PRN ×2 (20:26)
[2018-11-19] MEDS: Cefepime HCl 1,000 MG in Water for inj. (sterile) 20 ML 10 ML IVP SCH ×2 (03:54→17:14)
[2018-11-19] MEDS: *HR* Heparin 5,000 UNIT/ML VIAL SQ SCH ×2 (03:55→17:14)
[2018-11-19] MEDS: D5% in 0.45% NACL 1,000 ML IVC SCH ×2 (03:56→17:16)
[2018-11-19] MEDS: Insulin LISPRO 300 UNITS/3 ML VIAL SQ SCH ×4 (04:26→17:00)
[2018-11-19] MEDS: Aspirin Enteric Coated 81 MG Tablet PO SCH (07:37)
[2018-11-19] MEDS: amLODIPine 5 MG TABLET PO SCH (07:38)
[2018-11-19] MEDS: Pantoprazole 40 MG VIAL IVP SCH (08:04)
--- NOTE | 2018-11-19 15:49 | Internal Med Progress Note ---
Hospitalist Progress Note - Encounter Date of Encounter: 11/19/18 Time of Encounter: 15:45 - Subjective Interval History: Pt sleeping peacefully this AM, and upon reassessment this afternoon with daughter, she says that her mother just went back to sleep and to please not awaken her. No longer complaining of pain. Daughter says that her mother did refuse to eat much of her lunch today, and although seemed slightly confused, was not agitated and groaning continuously as she did the two days before. States she and her brothers would like to start focusing on keeping her comfortable rather than in pain; discussed palliative care (not hospice) consult ation and she will think about it, would like to await biopsy results first and talk with her family. - Exam Vitals: Temp Pulse Resp BP Pulse Ox 97.6 F 69 20 183/81 100 11/19/18 15:05 11/19/18 15:05 11/19/18 15:05 11/19/18 15:05 11/19/18 15:05 Exam: General: NAD, elderly and frail, sleeping peaceably Thoracic: Normal breath sounds b/l, no wheezing or crackles Cardio: Normal S1 and S2, regular rate and rhythm, no murmurs Abdomen: Soft, nondistended. Does have ostomy bag L abd appears normal. Extremities: Warm, well perfused. DP pulses 2+ b/l. No edema. Skin: Intact. No rashes, bruises, or ulcers Neuro: Sleeping - Summary of Assessment and Plan Summary of Assessment and Plan: Byers-sensitive PsA UTI: - continue cefepime 2q12, last dose 11/22 Abd pain: suspect hernia pain as well as MSK back pain, much improved today, has not required any pain meds and has been sleeping most of the day - d/c fentanyl - continue oxycodone 5 q4h prn Chronic MSK back pain and chronic opioid use disorder: s/p multiple surgeries >20y ago and has since been on MS Contin which was only recently stopped in week before this admission - resume chronic opioids as above as pt likely to experience withdrawal DVT: 11/04/18, AC d/c'ed 2/2 hematuria, now s/p IVC filter CKD4: baseline Cr ~1.8, avoid nephrotoxins and monitor daily HFpEF: euvolemic, holding home lasix CAD: newly started ASA 81, not on statin HTN: home coreg and lasix as above DM2: SSI and q6h accuchecks Depression: home celexa 20 Hypothyroidism: home synthroid Internal Medicine: Result - Labs CBC & Chem 7: 11/18/18 03:23 11/18/18 03:23 - ABG Interpretation ABG results: PT/INR, D-dimer PT 18.1 Seconds (9.4-12.1) H 11/16/18 08:03 Consult Discharge Plan - Plan Referrals: Alfa Zhou Jr, MD [Primary Care Provider] - (from [facility])
[2018-11-19] MEDS: *HR* LORazepam 2 MG/ML VIAL IVP PRN ×2 (17:14→22:49)
[2018-11-19] MEDS: Nystatin POWDER 30 GM BOTTLE TP SCH (22:57)
[2018-11-20] MEDS: Insulin LISPRO 300 UNITS/3 ML VIAL SQ SCH ×4 (01:59→17:17)
[2018-11-20] MEDS: Cefepime HCl 1,000 MG in Water for inj. (sterile) 20 ML 10 ML IVP SCH ×2 (08:31→18:11)
[2018-11-20] MEDS: D5% in 0.45% NACL 1,000 ML IVC SCH (08:31)
[2018-11-20] MEDS: Aspirin Enteric Coated 81 MG Tablet PO SCH (08:34)
[2018-11-20] MEDS: Pantoprazole 40 MG VIAL IVP SCH (08:35)
[2018-11-20] MEDS: amLODIPine 5 MG TABLET PO SCH (08:35)
[2018-11-20] MEDS: *HR* Heparin 5,000 UNIT/ML VIAL SQ SCH ×2 (09:05→18:11)
[2018-11-20] MEDS: Nystatin POWDER 30 GM BOTTLE TP SCH (09:06)
[2018-11-20 09:56] LABS: Hematocrit 29.7 % (35.3-44.9); Hemoglobin 10.2 g/dL (11.5-15.4); Mean Corpuscular HGB Conc 34.3 g/dL (31.6-35.5); Mean Corpuscular Hemoglobin 32.3 pg (28.0-33.3); Mean Platelet Volume 9.5 fL (9.4-12.4); Platelet Count 229 K/mcL (140-400); Red Blood Count 3.16 M/mcL (3.82-4.97); Red Cell Distribution Width 14.1 % (11.5-14.5)
[2018-11-20 10:01] LABS: VBG HCO3 24 mEq/L (21-27); VBG PCO2 34 mmHg (41-51); VBG PH 7.45 pH Units (7.32-7.42); VBG PO2 204 mmHg (25-50)
[2018-11-20 10:12] LABS: Albumin 2.6 g/dL (3.5-5.7); Albumin/Globulin Ratio 1.1 (1.1-2.2); Bilirubin,Indirect 0.5 mg/dL (0.0-1.2); Bilirubin,Total 0.5 mg/dL (0.3-1.0); Calcium 8.2 mg/dL (8.6-10.3); Globulin 2.4 g/dL (2.4-3.5); Magnesium 1.4 mg/dL (1.6-2.6); Phosphorous 1.8 mg/dL (2.7-4.5); Potassium 2.9 mEq/L (3.5-5.1)
[2018-11-20] MEDS ORDERED: Potassium Phosphate 44 MEQ in 0.9 % Sodium Chloride 250 ML IVPB ONE (10:20)
--- NOTE | 2018-11-20 10:33 | Internal Med Progress Note ---
Hospitalist Progress Note - Encounter Date of Encounter: 11/20/18 Time of Encounter: 10:19 - Subjective Interval History: No family present today. Pt wakes occasionally and follows some commands, but soon goes back to sleep. Did get dose of ativan last night for agitation because apparently CIWA scale is ordered and has since been sleeping. - Exam Vitals: Temp Pulse Resp BP Pulse Ox 97.5 F L 82 20 196/75 94 11/20/18 08:06 11/20/18 08:06 11/20/18 08:06 11/20/18 08:06 11/20/18 08:06 Exam: General: NAD, elderly and frail, sleeping peaceably, awakes to physical stim but is confused/disoriented and attempts to follow commands for a few seconds before sleeping again Thoracic: Normal breath sounds b/l, no wheezing or crackles Cardio: Normal S1 and S2, regular rate and rhythm, no murmurs Abdomen: Soft, nondistended. Does have ostomy bag L abd appears normal. Extremities: Warm, well perfused. DP pulses 2+ b/l. No edema. Skin: Intact. No rashes, bruises, or ulcers Neuro: Nonfocal - Summary of Assessment and Plan Summary of Assessment and Plan: Acute metabolic encephalopathy: due to NOBLE and electrolytes disturbances as below, also overnight use of ativan. On further review, because she did not get any pain meds for ~48h, it appears she got dose of ativan 4 mg -2d and 2x 2 mg doses yesterday, which explains her persistent sleepiness. CIWA scale ordered on admission. - precautions - treat lyte imbalances as below - d/c CIWA protocol and no further ativan use - recheck UA Hypokalemia: replace and monitor Hypomagnesemia: replace and monitor Hypophosphatemia: replace and monitor Byers-sensitive PsA UTI: - continue cefepime 2q12, last dose 11/22 Abd pain: suspect hernia pain as well as MSK back pain, much improved today, has not required any pain meds and has been sleeping most of the day - continue oxycodone 5 q4h prn Chronic MSK back pain and chronic opioid use disorder: s/p multiple surgeries >20y ago and has since been on MS Contin which was only recently stopped in week before this admission - resume chronic opioids as above as pt likely to experience withdrawal DVT: 11/04/18, AC d/c'ed 2/2 hematuria, now s/p IVC filter CKD4: baseline Cr ~1.8, avoid nephrotoxins and monitor daily HFpEF: euvolemic, holding home lasix CAD: newly started ASA 81, not on statin HTN: home coreg and lasix as above DM2: SSI and q6h accuchecks Depression: home celexa 20 Hypothyroidism: home synthroid PPx: sqh FEN: pureed, MIVF D5.45@75, will add K Lines: PIV Consults: Uro, GI, consider palliative Code: Full Dispo: patient requires inpatient eval and management at this time. Anticipate 2-3 days. Will return to SNF/ECF Internal Medicine: Result - Labs CBC & Chem 7: 11/20/18 09:40 11/20/18 09:40 Labs: Short CBC 11/20/18 Range/Units 09:40 WBC 6.3 (4.3-11.1) K/mcL Hgb 10.2 L (11.5-15.4) g/dL Hct 29.7 L (35.3-44.9) % Plt Count 229 (140-400) K/mcL BMP 11/20/18 09:40 Sodium 136 Potassium 2.9 L Chloride 104 Carbon Dioxide 24 BUN 13 Creatinine 1.57 H Glucose 91 Calcium 8.2 L Liver Function 11/20/18 Range/Units 09:40 Total Bilirubin 0.5 (0.3-1.0) mg/dL Direct Bilirubin 0.0 (0.0-0.2) mg/dL AST 18 (13-39) Units/L ALT 10 (7-52) Units/L Alkaline Phosphatase 45 (34-104) Units/L Albumin 2.6 L (3.5-5.7) g/dL - ABG Interpretation ABG results: PT/INR, D-dimer PT 18.1 Seconds (9.4-12.1) H 11/16/18 08:03 Consult Discharge Plan - Plan Referrals: Alfa Zhou Jr, MD [Primary Care Provider] - (from [facility])
[2018-11-20] MEDS: Ondansetron 4 MG/2 ML VIAL IVP PRN (13:34)
[2018-11-20 16:19] LABS: Bilirubin,Urine Negative (Negative); Blood,Urine Trace (Negative); Clarity,Urine Clear (Clear); Color,Urine Yellow (Yellow); Glucose,Urine (UA) Normal (Normal); Ketones,Urine Negative (Negative); Leukocyte Esterase,Urine Small (Negative); Nitrite,Urine Negative (Negative); Protein,Urine 100 mg/dL (Neg-Trace); Specific Gravity,Urine 1.018 (1.010-1.025); Urobilinogen,Urine Normal (Normal)
[2018-11-20 16:22] LABS: Bacteria,Urine None Seen per hpf (None-Few); Hyaline Casts,Urine None Seen per lpf (None-Few); RBC,Urine 0-3 per hpf (0-3); Squamous Epithelial Cell,Urine Many per lpf (None-Few)
--- NOTE | 2018-11-20 17:54 | Electrocardiograph Report ---
[address] [address] Test Date: 2018-11-19 Pat Name: Carolynn Spence Department: 112 Room: 2A26 Gender: F Photo Printer: : [id number] Requested By: nAthony Marin Order Number: [id number] Reading MD: Joi Jones Measurements Intervals [place]jo Rate: 66 P: -13 MD: 137 QRS: 99 QRSD: 90 T: -49 QT: 448 QTc: 461 Interpretive Statements SINUS RHYTHM SHORT MD INTERVAL BORDERLINE RIGHT AXIS DEVIATION NONSPECIFIC ST & T-WAVE ABNORMALITY Electronically Signed On 11-20-2018 17:53:08 EDT by Joi Jones
[2018-11-20] MEDS: D5% in 0.45% NACL w KCl 10 MEQ/1,000 ML MLS IVC SCH (18:10)
[2018-11-20 22:01] LABS: Calcium 8.2 mg/dL (8.6-10.3); Magnesium 2.4 mg/dL (1.6-2.6); Phosphorous 4.4 mg/dL (2.7-4.5); Potassium 3.7 mEq/L (3.5-5.1)
--- NOTE | 2018-11-20 23:26 | Event Note ---
Date of Encounter: 11/20/18 Time of Encounter: 19:50 Alerted by patient's nurse ELEN Huerta that patient is bradycardic with heart rate in the 40s with some PVCs. Patient is currently nonverbal and somnolent. Nurse reported report and notes show patient's POA (son Miguel) wants to focus on keeping her comfortable. Palliative care consult discussed but not placed. Family would like to know biopsy results first before calling Palliative in. Called patient's son Miguel at 21:59 to discuss patient's current condition and CODE STATUS. I explained to her son that patient would probably not survive code measures due to her frailty. I then explained the various CODE STATUES and what each one entailed. I explained that his mother is currently somnolent and experience intermittent shaking. He stated that his mother is a 30-year opioid user stemming from back surgery and she is high risk for withdrawal which she has done in the past. He stated that the [facility] where she resides stopped her morphine and she began withdrawing. I informed him that I had ordered Ativan for withdrawal last night and pt. had received a dose. He stated that he wishes to have the Ativan stopped as the pt. becomes altered and somnolent from it. He stated that his mother uses Ativan as well and she would be upset if he stopped it but he felt she could not handle it. I stated that I would add Ativan to her allergy list as it causes an adverse rxn of unresponsiveness. The son was in agreement. I informed the son that Fentanyl was ordered but I felt this was inappropriate in her current condition and that I would hold this for now. I continued the Oxycodone to prevent withdrawal. I also stated that I was making her NPO d/t her somnolence/AMS and she was receiving D5. We then discussed her CODE STATUS to which he stated he would like her changed to DNRCCA DNI. I reiterated what this entailed and he expressed understanding and agreement. I asked if he wished to have a Palliative Care consult placed for comfort care and he stated not at this time. I asked if there were any other questions or concerns to which he stated no. I went over the plan of care once again and he expressed understanding and agreement to this at the conclusion. I assured him I would be keeping a close eye on her overnight and he stated he would be here sometime tomorrow. Nurse instructed of changes and told to alert me immediately of any adverse changes.
[2018-11-21] MEDS: Insulin LISPRO 300 UNITS/3 ML VIAL SQ SCH ×4 (00:20→17:25)
[2018-11-21] MEDS: OXYCODONE Oral CONC 10 MG/0.5 ML ORAL.SYG SL PRN ×4 (01:38→17:46)
[2018-11-21] MEDS ORDERED: *HR* Morphine 2 MG/ML SYRINGE IVP ONE (03:35)
[2018-11-21] MEDS: *HR* Heparin 5,000 UNIT/ML VIAL SQ SCH ×2 (06:14→17:45)
[2018-11-21] MEDS: Cefepime HCl 1,000 MG in Water for inj. (sterile) 20 ML 10 ML IVP SCH ×2 (06:15→17:45)
[2018-11-21] MEDS: D5% in 0.45% NACL w KCl 10 MEQ/1,000 ML MLS IVC SCH ×4 (07:33→21:01)
[2018-11-21] MEDS: Pantoprazole 40 MG VIAL IVP SCH (07:34)
[2018-11-21] MEDS: Aspirin Enteric Coated 81 MG Tablet PO SCH (07:35)
[2018-11-21] MEDS: amLODIPine 5 MG TABLET PO SCH (07:36)
[2018-11-21] MEDS: Nystatin POWDER 30 GM BOTTLE TP SCH (07:36)
[2018-11-21 08:17] LABS: Hematocrit 25.8 % (35.3-44.9); Hemoglobin 8.9 g/dL (11.5-15.4); Mean Corpuscular HGB Conc 34.5 g/dL (31.6-35.5); Mean Corpuscular Volume 92.8 fL (83.0-100.0); Mean Platelet Volume 9.5 fL (9.4-12.4); Platelet Count 220 K/mcL (140-400); Red Blood Count 2.78 M/mcL (3.82-4.97); Red Cell Distribution Width 14.2 % (11.5-14.5)
[2018-11-21 08:38] LABS: Calcium 8.1 mg/dL (8.6-10.3); Magnesium 2.1 mg/dL (1.6-2.6); Phosphorous 3.1 mg/dL (2.7-4.5); Potassium 3.4 mEq/L (3.5-5.1)
--- NOTE | 2018-11-21 09:09 | Internal Med Progress Note ---
Hospitalist Progress Note - Encounter Date of Encounter: 11/21/18 Time of Encounter: 09:06 - Subjective Interval History: Pt awake this AM but unable to answer any questions. Does have mild cough productive of phlegm, which she does follow commands enough to spit it out when asked. Night team discussed care with pt's son who made pt DNRCC-A. - Exam Vitals: Temp Pulse Resp BP Pulse Ox 98.6 F 102 20 180/69 99 11/21/18 07:45 11/21/18 07:45 11/21/18 07:45 11/21/18 07:45 11/21/18 07:45 Exam: General: NAD, elderly and frail Thoracic: Normal breath sounds b/l, does have some bibasilar rhonchi Cardio: Normal S1 and S2, regular rate borderline bradycardic, regular rhythm Abdomen: Soft, nondistended. Does have ostomy bag L abd appears normal. Extremities: Warm, well perfused. DP pulses 2+ b/l. No edema in legs. B/l UE with focal edema and bruising around IV sites Skin: Intact. No rashes or ulcers Neuro: awake, disoriented and nonverbal, attempted to say something to me, did follow single command to spit out phlegm - Summary of Assessment and Plan Summary of Assessment and Plan: Acute metabolic encephalopathy: multifactorial 2/2 NOBLE, electrolytes, and previous use of ativan. Alertness increasing today, but still disoriented. - precautions - recheck UA Hypokalemia: replace and monitor Hypomagnesemia: replaced Hypophosphatemia: replaced Byers-sensitive PsA UTI: - continue cefepime 2q12, last dose 11/22 Abd pain: suspect hernia pain as well as MSK back pain as well as gastritis on EGD. Biopsy otherwise negative. - continue oxycodone 5 q4h prn Chronic MSK back pain and chronic opioid use disorder: s/p multiple surgeries >20y ago and has since been on MS Contin which was only recently stopped in week before this admission - continue chronic opioids as above as pt likely to experience withdrawal DVT: 11/04/18, AC d/c'ed 2/2 hematuria, now s/p IVC filter CKD4: baseline Cr ~1.5, avoid nephrotoxins and monitor daily HFpEF: euvolemic, holding home lasix CAD: newly started ASA 81, not on statin HTN: home coreg and lasix as above DM2: SSI and q6h accuchecks Depression: home celexa 20 Hypothyroidism: home synthroid PPx: sqh FEN: pureed, MIVF D5.45@75, will add K Lines: PIV but will plan for powerglide given IVs infiltrating Consults: Uro, GI, consider palliative Code: DNRCC-A Dispo: patient requires inpatient eval and management at this time. Anticipate 2-3 days. Will return to SNF/ECF Internal Medicine: Result - Labs CBC & Chem 7: 11/21/18 07:52 11/21/18 07:52 Labs: Short CBC 11/20/18 11/21/18 Range/Units 09:40 07:52 WBC 6.3 8.5 (4.3-11.1) K/mcL Hgb 10.2 L 8.9 L (11.5-15.4) g/dL Hct 29.7 L 25.8 L (35.3-44.9) % Plt Count 229 220 (140-400) K/mcL BMP 11/20/18 11/20/18 11/21/18 09:40 19:59 07:52 Sodium 136 136 135 L Potassium 2.9 L 3.7 D 3.4 L Chloride 104 104 104 Carbon Dioxide 24 21 L 21 L BUN 13 13 13 Creatinine 1.57 H 1.44 H 1.47 H Glucose 91 114 H 167 H Calcium 8.2 L 8.2 L 8.1 L Liver Function 11/20/18 Range/Units 09:40 Total Bilirubin 0.5 (0.3-1.0) mg/dL Direct Bilirubin 0.0 (0.0-0.2) mg/dL AST 18 (13-39) Units/L ALT 10 (7-52) Units/L Alkaline Phosphatase 45 (34-104) Units/L Albumin 2.6 L (3.5-5.7) g/dL Urine 11/20/18 Range/Units 15:40 Urine Color Yellow (Yellow) Urine Clarity Clear (Clear) Urine pH 7.0 (5.0-8.0) pH Units Ur Specific [place] 1.018 (1.010-1.025) Urine Protein 100 H (Neg-Trace) mg/dL Urine Glucose (UA) Normal (Normal) mg/dL - ABG Interpretation ABG results: PT/INR, D-dimer PT 18.1 Seconds (9.4-12.1) H 11/16/18 08:03 - Impressions Impressions Chest X-Ray 11/20/18 22:24 IMPRESSION: No acute focal infiltrate is identified. There is increased central opacity with increased interstitial opacity. Correlate with any clinical evidence interstitial edema. D/ / Rene Corral MD / Rene Corral MD Interpreting Provider: Rene Corral MD Consult Discharge Plan - Plan Referrals: Alfa Zhou Jr, MD [Primary Care Provider] - (from [facility])
[2018-11-21] MEDS ORDERED: Potassium Chloride Elixir 20 MEQ/15 ML UDC PO ONE (09:12)
[2018-11-21] MEDS ORDERED: OXYCODONE Oral CONC 10 MG/0.5 ML ORAL.SYG SL ONE (12:55)
[2018-11-21] MEDS: *HR* FentaNYL (PF) 100 MCG/2 ML VIAL IVP PRN ×2 (20:01→23:50)
[2018-11-22] MEDS: Insulin LISPRO 300 UNITS/3 ML VIAL SQ SCH ×4 (00:54→19:07)
[2018-11-22] MEDS: OXYCODONE Oral CONC 10 MG/0.5 ML ORAL.SYG SL PRN ×3 (02:27→11:21)
[2018-11-22] MEDS: Ondansetron 4 MG/2 ML VIAL IVP PRN ×2 (02:33→11:36)
[2018-11-22] MEDS: *HR* FentaNYL (PF) 100 MCG/2 ML VIAL IVP PRN ×7 (02:43→23:22)
[2018-11-22] MEDS: Cefepime HCl 1,000 MG in Water for inj. (sterile) 20 ML 10 ML IVP SCH (05:17)
[2018-11-22] MEDS: *HR* Heparin 5,000 UNIT/ML VIAL SQ SCH ×2 (05:18→18:18)
[2018-11-22 06:42] LABS: Hematocrit 25.4 % (35.3-44.9); Hemoglobin 8.9 g/dL (11.5-15.4); Mean Corpuscular Hemoglobin 32.5 pg (28.0-33.3); Mean Corpuscular Volume 92.7 fL (83.0-100.0); Mean Platelet Volume 9.5 fL (9.4-12.4); Platelet Count 193 K/mcL (140-400); Red Blood Count 2.74 M/mcL (3.82-4.97); Red Cell Distribution Width 14.5 % (11.5-14.5)
[2018-11-22 07:03] LABS: Calcium 8.5 mg/dL (8.6-10.3); Magnesium 1.9 mg/dL (1.6-2.6); Potassium 3.3 mEq/L (3.5-5.1)
[2018-11-22] MEDS: amLODIPine 5 MG TABLET PO SCH (08:15)
[2018-11-22] MEDS: Aspirin Enteric Coated 81 MG Tablet PO SCH (08:15)
[2018-11-22] MEDS: Nystatin POWDER 30 GM BOTTLE TP SCH (08:28)
[2018-11-22] MEDS: Pantoprazole 40 MG VIAL IVP SCH (08:28)
--- NOTE | 2018-11-22 11:16 | Internal Med Progress Note ---
Hospitalist Progress Note - Encounter Date of Encounter: 11/22/18 Time of Encounter: 11:13 - Subjective Interval History: Pt yesterday and last night began again yelling out nonfocally, continues to be confused. Will call family today and discuss ongoing care for their mother. - Exam Vitals: Temp Pulse Resp BP Pulse Ox 98.1 F 125 18 129/91 96 11/22/18 07:35 11/22/18 07:35 11/22/18 07:35 11/22/18 07:35 11/22/18 07:35 Exam: General: NAD, elderly and frail, yells out periodically Thoracic: Normal breath sounds b/l Cardio: Normal S1 and S2, regular rate borderline bradycardic, regular rhythm Abdomen: Soft, nontender, nondistended. Does have ostomy bag L abd appears normal. Extremities: Warm, well perfused. DP pulses 2+ b/l. Mild nonpitting edema in legs. B/l UE with focal edema and bruising around IV sites Skin: Intact. No rashes or ulcers. Bruising as above Neuro: awake, disoriented and does not follow commands - Summary of Assessment and Plan Summary of Assessment and Plan: Acute metabolic encephalopathy: multifactorial 2/2 NOBLE, electrolytes, use of ativan, and chronic opioid use. Alertness increased from yesterday and day before to point of patient yelling out nonspecifically, but still completely di soriented and not following commands. Repeat UA unremarkable. Finishing cefepime today. electrolyte imbalances corrected. Getting around the clock low dose opioids to prevent/manage withdrawal. - precautions - pain meds w oral oxycodone and fentanyl 50 iv for breakthrough or inability to tolerate PO - rechecking TSH and FT4 as not getting synthroid for last week - Neuro consultation - Palliative consultation Hypokalemia: replace and monitor Hypomagnesemia: replaced Byers-sensitive PsA UTI: - continue cefepime 2q12, last dose today Abd pain: suspect hernia pain as well as MSK back pain as well as gastritis on EGD. Biopsy otherwise negative. - continue PPI iv - continue oxycodone 5 q4h prn Chronic MSK back pain and chronic opioid use disorder: s/p multiple surgeries >20y ago and has since been on MS Contin which was only recently stopped in week before this admission - continue chronic opioids as above as pt likely to experience withdrawal DVT: 11/04/18, AC d/c'ed 2/2 hematuria, now s/p IVC filter CKD4: baseline Cr ~1.5, avoid nephrotoxins and monitor daily HFpEF: euvolemic, holding home lasix CAD: newly started ASA 81, not on statin HTN: home coreg and lasix as above DM2: SSI and q6h accuchecks Depression: home celexa 20 Hypothyroidism: home synthroid PPx: sqh FEN: pureed, MIVF D5.45+20K @75 Lines: PIV but will plan for powerglide given IVs infiltrating Consults: Uro, GI, Neuro, palliative Code: DNRCC-A Dispo: patient requires inpatient eval and management at this time. Anticipate 2-3 days. Will return to SNF/ECF Internal Medicine: Result - Labs CBC & Chem 7: 11/22/18 06:23 11/22/18 06:23 Labs: Short CBC 11/22/18 Range/Units 06:23 WBC 10.2 (4.3-11.1) K/mcL Hgb 8.9 L (11.5-15.4) g/dL Hct 25.4 L (35.3-44.9) % Plt Count 193 (140-400) K/mcL BMP 11/22/18 06:23 Sodium 133 L Potassium 3.3 L Chloride 104 Carbon Dioxide 20 L BUN 12 Creatinine 1.56 H Glucose 159 H Calcium 8.5 L - ABG Interpretation ABG results: PT/INR, D-dimer PT 18.1 Seconds (9.4-12.1) H 11/16/18 08:03 Consult Discharge Plan - Plan Referrals: Alfa Zhou Jr, MD [Primary Care Provider] - (from [facility])
[2018-11-22] MEDS: D5% in 0.45% NACL w KCl 10 MEQ/1,000 ML MLS IVC SCH (11:21)
[2018-11-22] MEDS ORDERED: *HR* FentaNYL PATCH 75 MCG PATCH TD SCH (11:30)
[2018-11-22] MEDS ORDERED: D5% in 0.45% NACL w KCl 20 MEQ/1,000 ML MLS IVC SCH (11:30)
[2018-11-22 12:22] LABS: Thyroid Stimulating Hormone 5.814 mcIU/mL (0.340-5.600)
--- NOTE | 2018-11-22 12:51 | Neurology - Consult Note ---
<Tyler Candelario - Last Filed: 11/22/18 13:47> Date of Encounter: 11/22/18 Time of Encounter: 12:51 Assessment and Plan (1) Toxic metabolic encephalopathy Current Visit: Yes Status: Suspected - Etiology of encephalopathy is unclear at this time - Differential is vast and may include infectious, inflammatory, medication induced. Neurologic is less likely at this time given nonfocal exam - Finishing course of treatment to cefepime for pseudomonal UTI - History of chronic indwelling Pal catheter which has been exchanged on this visit - Has been receiving [id number] opioid medications - No leukocytosis, afebrile, TSH mildly elevated in the setting of acute illness. T4 wnl. - Imaging prior to arrival on 11/[address] of the abdomen which showed descending colostomy with small peristomal hernia, no evidence of obstruction. Pleural effusions and trace ascites also noted. - chest x-ray on 11/20 which showed no focal infiltrate. - Physical exam is limited due to patient cooperation. She is moving all 4 extremities Plan - Patient's history and presentation do not point to neurologic etiology suspect is most likely metabolic, however will rule out as able with patient cooperation. Very likely that this is multifactorial metabolic process and compounded on chronic cortical atrophy and normal aging degeneration which is exacerbating her symptoms. - Also may consider adrenal etiology. Prednisone 10 mg on home med list and no steroids here. Wound explain abdominal pain and AMS however no evidence of hypotension. - We will obtain MRI of the head to rule out neurologic etiology - EEG ordered and pending - Cefepime has been documented to cause confusion, patient is scheduled to stop today. - Palliative care following - Will also order B12 and folate given her anemia but this seems chronic History of Present Illness Chief complaint: AMS HPI: Ms. Spence is a 87 year old female with past medical history of arthritis, CHF, COPD, CAD, DVT, diabetes, fibromyalgia, GERD, hyperlipidemia, hypertension, CKD stage III, hypothyroidism who initially presented to [facility] on 11/14/18 with a complaint of abdominal pain. Patient does reportedly have a history of chronic back and abdominal pain over this was worse from her baseline. She was noted to be alert and oriented at that time with normal cognition. Neurology was consulted on 11/22/18 for concerns for altered mental status which have not improved with treatment of underlying metabolic conditions. Upon arrival to this facility, vital signs were significant for a blood pressure of 180/71 and a heart rate of 58. She was tolerating 2 L of oxygen via nasal cannula 100%. Laboratory results on presentation were significant for a baseline anemia at 10.4, BUNs/creatinine of 24/1.89 which appears to be baseline. Troponin was also mildly elevated at 0.06 which was trended and adynamic. Lipase was within normal limits and TSH was within normal limits. CT of the abdomen was obtained prior to arrival and was unremarkable. She was also started on Rocephin for concerns for urinary tract infection in the setting of chronic Pal with a most recent urine culture on 11/14/18 growing pansensitive pseudomonas. During course of hospital stay, patient has been treated with cefepime for pseudomonas infection and urology has been consulted. Chronic Pal was removed and external catheter was placed. GI was also consulted and EGD was performed which showed gastritis and a large gastric folds. Pathology shows oxyntic mucosa with mild chronic inflammation. Gen. surgery was also consulted for recommendations regarding peristomal hernia and abdominal pain. They have since signed off suggesting that hernia is not the likely source of patient's pain and recommends bowel regimen. Patient is also had a difficult time getting control of her pain and is currently on a regimen of oxycodone as well as when necessary fentanyl. She did have an adverse reaction during the stay to Ativan. Today during interview, patient is altered and does not answer questions. She continued only screams out in pain but does not answer where her pain is. She is not alert or oriented to person place or time. No family is present at bedside to corroborate history. Per chart review, primary team has had contact with family regarding palliative care discussions and palliative care consult has been placed. Past Med Surg Social Fam HX - Past Medical History Medical history: arthritis, CHF, COPD, coronary artery disease, DVT, diabetes, fibromyalgia, GERD, hyperlipidemia, hypertension, myocardial infarction, renal disease, thyroid disease, other Additional medical history: Chronic diastolic heart failure Psychiatric history: anxiety, depression - Past Surgical History Surgical History: angioplasty/stent, cholecystectomy, colostomy, herniorrhaphy, hysterectomy, orthopedic, other Additional surgical history: HERNIA REPAIR, HYSTERECTOMY, COLON SURGERY, BLADDER REPAIR, CARPEL TUNNEL SURGERY, FX FOOT - Social History Smoking Status: Never smoker Smokeless Tobacco Status: No Alcohol use: none Drug use: none Medications and Allergies Citalopram Hydrobromide [Citalopram HBr] 10 mg PO DAILY 07/17/15 [History] Carvedilol [Coreg] 12.5 mg PO BID 01/11/18 [History] Cyanocobalamin (B-12) [Vitamin B12] 1,000 mcg PO Q48H 10/25/18 [History] Ferrous Sulfate [Iron] 325 mg PO DAILY 10/25/18 [History] Levothyroxine Sodium 100 mcg PO DAILY 10/25/18 [History] Omeprazole [PriLOSEC] 20 mg PO DAILY 10/25/18 [History] predniSONE [PredniSONE] 10 mg PO DAILY 10/25/18 [History] Cholecalciferol (Vitamin D3) [Vitamin D] 50,000 unit PO TU 11/14/18 [History] Furosemide [Lasix] 20 mg PO DAILY 11/14/18 [History] Oxycodone HCl [Roxybond] 5 mg PO Q4H PRN 11/14/18 [History] Warfarin [Coumadin] 2 mg PO 1800 11/14/18 [History] Docusate [Colace] 100 mg PO BID 11/15/18 [History] Polyethylene Glycol 3350 [MiraLAX] 17 gm PO DAILY PRN 11/15/18 [History] Allergy/AdvReac Type Severity Reaction Status Date / Time trimethoprim Allergy See Verified 11/14/18 03:00 Comments Sulfa (Sulfonamide AdvReac Nausea Verified 11/14/18 03:00 Antibiotics) ativan AdvReac Unresponsiv Uncoded 11/20/18 22:05 e ROS unobtainable: due to mental status All Systems: The remainder of the systems were reviewed and are negative Physical Examination - Vital Signs Vital Signs: Initial Vital Signs Temp Pulse Resp BP Pulse Ox 97.9 F 58 19 180/71 100 11/14/18 08:30 11/14/18 08:30 11/14/18 08:30 11/14/18 08:30 11/14/18 08:30 - Exam Exam: Physical exam limited secondary to mental status. Patient does not follow commands nor does she answer questions. - Constitutional General appearance: uncomfortable, chronically ill - Neurologic Reflexes: Biceps: 2+, Patella: 2+ Mental Status Examination: does not follow commands, agitated, no spontaneous eye opening to voice or tactile stimulation, not reliable historian Cranial nerve examination: PERRL Results - Laboratory Findings CBC and BMP: 11/22/18 06:23 11/22/18 06:23 Abnormal lab findings: Abnormal lab results RBC 2.74 M/mcL (3.82-4.97) L 11/22/18 06:23 Hgb 8.9 g/dL (11.5-15.4) L 11/22/18 06:23 Hct 25.4 % (35.3-44.9) L 11/22/18 06:23 PT 18.1 Seconds (9.4-12.1) H 11/16/18 08:03 VBG pH 7.45 pH Units (7.32-7.42) H 11/20/18 09:57 VBG pCO2 34 mmHg (41-51) L 11/20/18 09:57 VBG pO2 204 mmHg (25-50) H 11/20/18 09:57 Sodium 133 mEq/L (136-145) L 11/22/18 06:23 Potassium 3.3 mEq/L (3.5-5.1) L 11/22/18 06:23 Carbon Dioxide 20 mEq/L (23-29) L 11/22/18 06:23 BUN 24 mg/dL (8-23) H 11/16/18 08:03 1.56 mg/dL (0.60-1.20) H 11/22/18 06:23 Est GFR ( Amer) 38 (> 60) L 11/22/18 06:23 Est GFR (Non-Af Amer) 32 (> 60) L 11/22/18 06:23 Glucose 159 mg/dL (70-105) H 11/22/18 06:23 POC Glucose 168 mg/dL (70-99) H 11/22/18 05:26 279 (280-300) L 11/22/18 06:23 Calcium 8.5 mg/dL (8.6-10.3) L 11/22/18 06:23 Phosphorus 1.8 mg/dL (2.7-4.5) L 11/20/18 09:40 Magnesium 1.4 mg/dL (1.6-2.6) L 11/20/18 09:40 0.07 ng/mL (< 0.04) H* 11/15/18 09:57 5.0 g/dL (6.4-8.9) L 11/20/18 09:40 2.6 g/dL (3.5-5.7) L 11/20/18 09:40 2.2 g/dL (2.4-3.5) L 11/18/18 03:23 TSH 5.814 mcIU/mL (0.340-5.600) H 11/22/18 06:23 100 mg/dL (Neg-Trace) H 11/20/18 15:40 Trace (Negative) H 11/20/18 15:40 Ur Leukocyte Esterase Small (Negative) H 11/20/18 15:40 3-5 per hpf (0-3) H 11/20/18 15:40 Ur Squamous Epith Cells Many per lpf (None-Few) H 11/20/18 15:40 Ur Culture Indicated? NO. (NO) A 11/20/18 15:40 Consult Discharge Plan - Plan Referrals: Alfa Zhou Jr, MD [Primary Care Provider] - (from [facility]) <Neeraj Wyman I - Last Filed: 11/22/18 15:29> Date of Encounter: 11/22/18 History of Present Illness HPI: Ms. Spence is a 87 year old female All Systems: The remainder of the systems were reviewed and are negative Physical Examination - Vital Signs Vital Signs: Initial Vital Signs Temp Pulse Resp BP Pulse Ox 97.9 F 58 19 180/71 100 11/14/18 08:30 11/14/18 08:30 11/14/18 08:30 11/14/18 08:30 11/14/18 08:30 Results - Laboratory Findings CBC and BMP: 11/22/18 06:23 11/22/18 06:23 Abnormal lab findings: Abnormal lab results RBC 2.74 M/mcL (3.82-4.97) L 11/22/18 06:23 Hgb 8.9 g/dL (11.5-15.4) L 11/22/18 06:23 Hct 25.4 % (35.3-44.9) L 11/22/18 06:23 PT 18.1 Seconds (9.4-12.1) H 11/16/18 08:03 VBG pH 7.45 pH Units (7.32-7.42) H 11/20/18 09:57 VBG pCO2 34 mmHg (41-51) L 11/20/18 09:57 VBG pO2 204 mmHg (25-50) H 11/20/18 09:57 Sodium 133 mEq/L (136-145) L 11/22/18 06:23 Potassium 3.3 mEq/L (3.5-5.1) L 11/22/18 06:23 Carbon Dioxide 20 mEq/L (23-29) L 11/22/18 06:23 BUN 24 mg/dL (8-23) H 11/16/18 08:03 1.56 mg/dL (0.60-1.20) H 11/22/18 06:23 Est GFR ( Amer) 38 (> 60) L 11/22/18 06:23 Est GFR (Non-Af Amer) 32 (> 60) L 11/22/18 06:23 Glucose 159 mg/dL (70-105) H 11/22/18 06:23 POC Glucose 168 mg/dL (70-99) H 11/22/18 05:26 279 (280-300) L 11/22/18 06:23 Calcium 8.5 mg/dL (8.6-10.3) L 11/22/18 06:23 Phosphorus 1.8 mg/dL (2.7-4.5) L 11/20/18 09:40 Magnesium 1.4 mg/dL (1.6-2.6) L 11/20/18 09:40 0.07 ng/mL (< 0.04) H* 11/15/18 09:57 5.0 g/dL (6.4-8.9) L 11/20/18 09:40 2.6 g/dL (3.5-5.7) L 11/20/18 09:40 2.2 g/dL (2.4-3.5) L 11/18/18 03:23 TSH 5.814 mcIU/mL (0.340-5.600) H 11/22/18 06:23 100 mg/dL (Neg-Trace) H 11/20/18 15:40 Trace (Negative) H 11/20/18 15:40 Ur Leukocyte Esterase Small (Negative) H 11/20/18 15:40 3-5 per hpf (0-3) H 11/20/18 15:40 Ur Squamous Epith Cells Many per lpf (None-Few) H 11/20/18 15:40 Ur Culture Indicated? NO. (NO) A 11/20/18 15:40
[2018-11-22] MEDS ORDERED: *HR* FentaNYL PATCH 50 MCG PATCH TD SCH (14:00)
[2018-11-22] MEDS ORDERED: levETIRAcetam 1,000 MG in 0.9 % Sodium Chloride 100 ML IVPB ONE (15:10)
--- NOTE | 2018-11-22 15:14 | EEG/EMG/Oth Biometrics Report ---
EEG Procedure Report EEG Procedure: Routine EEG Procedure Note: This is a multichannel digital EEG recording using the international 10-20 placement system. The resting record is less organized but symmetric. A dominant posterior rhythm is seen. It consists of a 4/6 hertz 20-70 microvolt alpha rhythm. Hyperventilation was not performed. Photic stimulation did not significantly alter the background rhythm. There was noted the presence of a rhythmic sharp discharge in the frontocentral region bilaterally, there are multiple electrodes artifact and movement artifact noted during the record making it difficult to him and on any hidden epileptiform discharges, at the same time triphasic wave's are also noted during this study IMPRESSION: This is an abnormal EEG recording because of the presence of generalized slowing, triphasic waves as well as bilateral frontal maximal epileptiform discharges. This would signify some underlying frontal dysfunction of a nonspecific etiology. Though triphasic waves could be noted in patient with hepatorenal dysfunction, Clinical correlation is suggested as to the etiology of this. If indicated, repeat EEG and/or 24-hour ambulatory EEG monitoring might be useful in the future.
--- NOTE | 2018-11-22 15:26 | Palliative - Consult Note ---
Date of Encounter: 11/22/18 Time of Encounter: 15:08 - Assessment and Plan (1) Toxic metabolic encephalopathy Current Visit: Yes Status: Suspected Assessment and plan: Causes of delirium not clear at his point. Neurology appreciated, Patient had an EEG that showed possible hypeactivity. Keppra to be started. MRI recommended, doubt that patient will cooperate without sedation. Will start haldol 1 mg q4hr prn (2) Abdominal pain with radiation to back Current Visit: No Status: Acute Assessment and plan: Patient has history of chronic back pain and was complaining of abdominal pain in admission. Her symptoms appear to respond transiently to to Fentanyl IV. Patient so far receiving 82 oral morphine equivalent a day, will start on Fentanyl patch 50 mcg/hr q72hr, continue Fentanyl 50 mcg prn doses as effect lags 10-12hrs. After 12 hrs, discontinue fantanyl IV prn, and continue Oxycodone SL prn for breakthrough pain. (3) Depression Current Visit: No Status: Chronic Assessment and plan: Patient is on home dose of Celexa. If no neurological causes found, consider psychiatry evaluation. Qualifiers: Depression Type: unspecified Qualified Code(s): F32.9 - Major depressive d isorder, single episode, unspecified (4) Palliative care encounter Current Visit: Yes Status: Acute (5) Acute lower urinary tract infection Current Visit: No Status: Acute Assessment and plan: On Cefepime, last diose today. Delirium is a possible rare side effect of cefepime. will observ in the next feww days after d/c. (6) Goals of care, counseling/discussion Current Visit: Yes Status: Acute Assessment and plan: Attempted to reach family, called both son Miguel Chilel and daughter Roseline Smallwood, unable to reach. Voicemail left with call back number. Full GOC discussion once family available. Palliative care will continue to follow. Per chart review, patient's son changed her code status to DNRCCA and DNI. Palliative-CN HPI - Data of Consult Patient: new to practice Consult date: 11/22/18 Requesting Physician: Asad Aleman Primary Care Provider: Alfa Zhou Jr, MD - Consult Narrative Palliative Care/Comfort Measures: Palliative care Reason for consult: Pain and delirium management. History of present illness: Ms. Spence is a 87 year old female with past medical history of arthritis, CHF, COPD, CAD, DVT, diabetes, fibromyalgia, GERD, hyperlipidemia, hypertension, CKD stage III, hypothyroidism who initially presented to [facility] from [facility] on 11/14/18 with a complaint of abdominal pain. History from chart review as patient is delirius and no family is present. Patient has history of chronic back pain, s/p multiple surgeries, on pain medication for >20 years. At the [facility] , patient was on MS contin 30 mg q8hrs, and it was discontinued. Patient then underwent withdrawal, followed by complains of abdominal pain. At the time of admission, UA wa positive, she has been treated for UTI with appropriate antibiotics, and lynne was removed with successful voiding trial. Hospital stay is complicated by altered mental status, at first lethargy, followed now by agitation and screaming with no apparent reason. GI was also consulted and EGD was performed which showed gastritis and a large gastric folds. Pathology shows oxyntic mucosa with mild chronic inflammation. Gen. surgery was also consulted for recommendations regarding peristomal hernia and abdominal pain. They have since signed off suggesting that hernia is not the likely source of patient's pain and recommends bowel regimen. Patient's pain management includes Fentanyl 50 mcg IV q3 hrs, receiving x4 doses in 24hrs, and Oxycodone SL 5mg q4hrs, receiving x3 doses in 24hrs. Patient was given Ativan 4mg x1 dose, and was lethargic afterward. Today, patient is lying in bed, agitated, with her eyes closed, moaning and yelling, not following commands, not answering questions, not able to tell if she is having pain. CC: Asad Aleman - Time Spent with Patient Time: Total time spent is greater than 50% in coordination of care (as documented) at patient's floor/unit and/or counseling patient: Time with patient: 60 minutes Past Med Surg Social Fam HX - Past Medical History Medical history: arthritis, CHF, COPD, coronary artery disease, DVT, diabetes, fibromyalgia, GERD, hyperlipidemia, hypertension, myocardial infarction, renal disease, thyroid disease, other Additional medical history: Chronic diastolic heart failure Psychiatric history: anxiety, depression - Past Surgical History Surgical History: angioplasty/stent, cholecystectomy, colostomy, herniorrhaphy, hysterectomy, orthopedic, other Additional surgical history: HERNIA REPAIR, HYSTERECTOMY, COLON SURGERY, BLADDER REPAIR, CARPEL TUNNEL SURGERY, FX FOOT - Social History Smoking Status: Never smoker Smokeless Tobacco Status: No Alcohol use: none Drug use: none Medications and Allergies Citalopram Hydrobromide [Citalopram HBr] 10 mg PO DAILY 07/17/15 [History] Carvedilol [Coreg] 12.5 mg PO BID 01/11/18 [History] Cyanocobalamin (B-12) [Vitamin B12] 1,000 mcg PO Q48H 10/25/18 [History] Ferrous Sulfate [Iron] 325 mg PO DAILY 10/25/18 [History] Levothyroxine Sodium 100 mcg PO DAILY 10/25/18 [History] Omeprazole [PriLOSEC] 20 mg PO DAILY 10/25/18 [History] predniSONE [PredniSONE] 10 mg PO DAILY 10/25/18 [History] Cholecalciferol (Vitamin D3) [Vitamin D] 50,000 unit PO TU 11/14/18 [History] Furosemide [Lasix] 20 mg PO DAILY 11/14/18 [History] Oxycodone HCl [Roxybond] 5 mg PO Q4H PRN 11/14/18 [History] Warfarin [Coumadin] 2 mg PO 1800 11/14/18 [History] Docusate [Colace] 100 mg PO BID 11/15/18 [History] Polyethylene Glycol 3350 [MiraLAX] 17 gm PO DAILY PRN 11/15/18 [History] Allergy/AdvReac Type Severity Reaction Status Date / Time trimethoprim Allergy See Verified 11/14/18 03:00 Comments Sulfa (Sulfonamide AdvReac Nausea Verified 11/14/18 03:00 Antibiotics) ativan AdvReac Unresponsiv Uncoded 11/20/18 22:05 e ROS unobtainable: due to mental status Palliative Care-Exam - Constitutional Vitals: Temp Pulse Resp BP Pulse Ox 97.9 F 114 16 140/93 95 11/22/18 12:01 11/22/18 12:01 11/22/18 12:01 11/22/18 12:01 11/22/18 12:01 Exam: agitated, not cooperative - Head Head Exam: Present: atraumatic - Eye Eye exam: Present: EOMI - ENT ENT exam: Present: mucous membranes moist - Neck Neck exam: Present: full ROM - Respiratory Respiratory exam: Present: CTAB - Cardiovascular Cardiovascular exam: Present: +S1, +S2, tachycardia - GI/Abdominal Exam GI/Abdominal exam: Present: normal bowel sounds, soft. Absent: tenderness additional comments: colostomy bag in place, containing soft stool. - Extremities Exam Extremities exam: Present: full ROM. Absent: pedal edema - Neurological Exam Neurological exam: Present: altered Additional comments: agitated - Psychiatric Psychiatric exam: Present: agitated, anxious - Skin Skin exam: Present: abrasion (around IV lines) Internal Medicine - CN: Reslt - Labs CBC & Chem 7: 11/22/18 06:23 11/22/18 06:23 Labs: Short CBC 11/22/18 Range/Units 06:23 WBC 10.2 (4.3-11.1) K/mcL Hgb 8.9 L (11.5-15.4) g/dL Hct 25.4 L (35.3-44.9) % Plt Count 193 (140-400) K/mcL BMP 11/22/18 06:23 Sodium 133 L Potassium 3.3 L Chloride 104 Carbon Dioxide 20 L BUN 12 Creatinine 1.56 H Glucose 159 H Calcium 8.5 L - ABG Interpretation ABG results: PT/INR, D-dimer PT 18.1 Seconds (9.4-12.1) H 11/16/18 08:03 Consult Discharge Plan - Plan Referrals: Alfa Zhou Jr, MD [Primary Care Provider] - (from [facility]) Palliative Quality Palliative Quality: Screen for Code Status: Yes, Screen for Goals of Care: Yes, Screen for Pain: Yes, If Pain Regimen Started, Initiate Bowel Regimen: Yes, Screen for Nausea/Vomitting: NA Code Status: 11/20/18 22:14 CODE [Resuscitation Status: Active] [RES] Routine Comment: Discussed and verified personally w/pts son (POA) Resuscitation Status: [id number] Palliative Scale - Palliative Performance Scale How ambulatory is this patient?: Mainly in bed What is patient's level of activity and evidence of disease?: Unable to do any work, Extensive disease How much self-care assistance does patient require?: Mainly assistance How much oral intake does the patient have?: Minimal to sips What is this patient's level of consciousness?: Full or confusion Palliative Performance Score: 30 %
[2018-11-22] MEDS ORDERED: Haloperidol Lactate 5 MG/ML VIAL IVP ONE (16:00)
[2018-11-22 16:28] LABS: Folate 21.4 ng/mL (3.0-16.0)
[2018-11-22 16:30] LABS: Vitamin B12 > 1500 pg/mL (250-1100)
[2018-11-22] MEDS: 0.9 % Sodium Chloride w KCl 20 MEQ/1,000 ML MLS IVC SCH (16:42)
[2018-11-23] MEDS: Insulin LISPRO 300 UNITS/3 ML VIAL SQ SCH ×4 (00:43→17:08)
[2018-11-23] MEDS: Haloperidol Lactate 5 MG/ML VIAL IVP PRN ×4 (01:28→14:39)
[2018-11-23] MEDS: *HR* FentaNYL (PF) 100 MCG/2 ML VIAL IVP PRN ×3 (04:13→11:54)
[2018-11-23 05:09] LABS: Hematocrit 24.7 % (35.3-44.9); Hemoglobin 8.5 g/dL (11.5-15.4); Mean Corpuscular HGB Conc 34.4 g/dL (31.6-35.5); Mean Corpuscular Hemoglobin 32.7 pg (28.0-33.3); Mean Platelet Volume 10.1 fL (9.4-12.4); Platelet Count 188 K/mcL (140-400); Red Cell Distribution Width 14.6 % (11.5-14.5)
[2018-11-23 05:29] LABS: Calcium 8.7 mg/dL (8.6-10.3); Magnesium 1.8 mg/dL (1.6-2.6); Potassium 4.2 mEq/L (3.5-5.1)
[2018-11-23] MEDS: *HR* Heparin 5,000 UNIT/ML VIAL SQ SCH ×2 (06:14→17:07)
--- NOTE | 2018-11-23 08:41 | Neurology Progress Note ---
<Tyler Candelario - Last Filed: 11/23/18 08:48> Date of Encounter: 11/23/18 Time of Encounter: 08:41 Assessment and Plan (1) Toxic metabolic encephalopathy Current Visit: Yes Status: Suspected - Etiology of encephalopathy is unclear at this time - Differential is vast and may include infectious, inflammatory, medication induced. - Completed course of treatment of cefepime for pseudomonal UTI on 11/22/18 - History of chronic indwelling Pal catheter which has been exchanged on this visit - Has been receiving [id number] opioid medications. Started on Haldol every 4 hours when necessary per palliative care - No leukocytosis, afebrile, TSH mildly elevated in the setting of acute illness. T4 wnl. - B12, folate not diminished - Imaging prior to arrival on 11/[address] of the abdomen which showed descending colostomy with small peristomal hernia, no evidence of obstruction. Pleural effusions and trace ascites also noted. - chest x-ray on 11/20 which showed no focal infiltrate. - Physical exam is limited due to patient cooperation. She is moving all 4 extremities - MRI of the brain obtained on 11/22/18 shows no evidence of acute process but does show moderate chronic microvascular disease, mild parenchymal volume loss as well as sinus mucosal disease and mastoid effusions. No clear underlying etiology of mental status changes Plan - Continue to suspect that Patient's history and presentation do not point to neurologic etiology suspect is most likely metabolic, however EEG results suggest that there may be an neurologic in shipping factor.. Very likely that this is multifactorial metabolic process and compounded on chronic cortical atrophy and normal aging degeneration which is exacerbating her symptoms. - We will continue monitor on current medications of Keppra, Haldol and monitor while off cefepime. - Also may consider adrenal etiology. Prednisone 10 mg on home med list and no steroids here. Wound explain abdominal pain and AMS however no evidence of hypotension. - Cefepime has been documented to cause confusion, patient has completed course of antibiotics - Palliative care following- family meeting this morning (2) Abnormal EEG Current Visit: Yes Status: Acute - As noted on 11/22/18 - Indication for EEG was altered mental status - EEG showed generalized slowing, triphasic waves as well as bilateral frontal maximal epileptiform discharges - Etiology of these findings is unclear but may be related to frontal above for seizures - Started on Keppra, day #2. 500 mg twice a day Plan - Clinically, patient appears to be about the same as yesterday in her mental status but does appear slightly less agitated. This may be related to timing of sedating medications. We will continue scheduled Keppra and monitor. - If indicated, repeat EEG and/or 24-hour ambulatory EEG monitoring might be useful in the future. Subjective Principal diagnosis: Toxic metabolic encephalopathy Interval history: Patient was seen and examined at bedside this morning. She continues to be altered and is unable to provide a review of systems. No family is present at bedside. Patient is in no acute distress but does allow periodically, possibly secondary to pain. No overnight events. Patient to have a family meeting this morning around 1100 Objective - Constitutional Vitals: Temp Pulse Resp BP Pulse Ox 98.3 F 110 16 178/73 92 11/23/18 07:51 11/23/18 07:51 11/23/18 07:51 11/23/18 07:51 11/23/18 07:51 General appearance: Present: A&O X 0, mild distress Exam: Physical exam is limited secondary to patient's mental status. She does not follow commands and does not answer questions. She yells out periodically mostly saying "ow". - Head Head exam: Present: atraumatic, normal inspection, normocephalic - Eye Eye exam: Present: PERRL (Pupils equal bilaterally measuring approximately 2 mm) - Extremities Exam Extremities exam: Present: warm, radial pulses palpable and symmetrical. Absent: pedal edema - Neurological Exam Motor Examination: Present: other (Unable to assess) Sensation intact: Present: other (Unable to assess) Reflexes: Biceps: 2+, Patella: 2+ Mental Status Examination: Present: does not follow commands, agitated, no spontaneous eye opening to voice or tactile stimulation, not reliable historian. Absent: awake, alert, oriented to person, oriented to place, oriented to time, follows commands appropriately, answers questions appropriately Cranial nerve examination: Present: PERRL Results - Laboratory Findings CBC and BMP: 11/23/18 04:11 11/23/18 04:11 Abnormal lab findings: Abnormal lab results RBC 2.60 M/mcL (3.82-4.97) L 11/23/18 04:11 Hgb 8.5 g/dL (11.5-15.4) L 11/23/18 04:11 Hct 24.7 % (35.3-44.9) L 11/23/18 04:11 RDW 14.6 % (11.5-14.5) H 11/23/18 04:11 PT 18.1 Seconds (9.4-12.1) H 11/16/18 08:03 VBG pH 7.45 pH Units (7.32-7.42) H 11/20/18 09:57 VBG pCO2 34 mmHg (41-51) L 11/20/18 09:57 VBG pO2 204 mmHg (25-50) H 11/20/18 09:57 Sodium 134 mEq/L (136-145) L 11/23/18 04:11 Potassium 3.3 mEq/L (3.5-5.1) L 11/22/18 06:23 Carbon Dioxide 18 mEq/L (23-29) L 11/23/18 04:11 BUN 24 mg/dL (8-23) H 11/16/18 08:03 1.61 mg/dL (0.60-1.20) H 11/23/18 04:11 Est GFR ( Amer) 37 (> 60) L 11/23/18 04:11 Est GFR (Non-Af Amer) 30 (> 60) L 11/23/18 04:11 Glucose 113 mg/dL (70-105) H 11/23/18 04:11 POC Glucose 107 mg/dL (70-99) H 11/23/18 06:40 279 (280-300) L 11/23/18 04:11 Calcium 8.5 mg/dL (8.6-10.3) L 11/22/18 06:23 Phosphorus 1.8 mg/dL (2.7-4.5) L 11/20/18 09:40 Magnesium 1.4 mg/dL (1.6-2.6) L 11/20/18 09:40 0.07 ng/mL (< 0.04) H* 11/15/18 09:57 5.0 g/dL (6.4-8.9) L 11/20/18 09:40 2.6 g/dL (3.5-5.7) L 11/20/18 09:40 2.2 g/dL (2.4-3.5) L 11/18/18 03:23 Vitamin B12 > 1500 pg/mL (250-1100) H 11/22/18 15:27 21.4 ng/mL (3.0-16.0) H 11/22/18 15:27 TSH 5.814 mcIU/mL (0.340-5.600) H 11/22/18 06:23 100 mg/dL (Neg-Trace) H 11/20/18 15:40 Trace (Negative) H 11/20/18 15:40 Ur Leukocyte Esterase Small (Negative) H 11/20/18 15:40 3-5 per hpf (0-3) H 11/20/18 15:40 Ur Squamous Epith Cells Many per lpf (None-Few) H 11/20/18 15:40 Ur Culture Indicated? NO. (NO) A 11/20/18 15:40 Consult Discharge Plan - Plan Referrals: Alfa Zhou Jr, MD [Primary Care Provider] - (from [facility]) <Neeraj Wyman I - Last Filed: 11/23/18 15:00> Date of Encounter: 11/23/18 Assessment and Plan (1) Toxic metabolic encephalopathy Current Visit: Yes Status: Suspected Pt was seen and examined, my medical decision was reviewed with the Resident Physician, I agree with the documented findings, disposition and treatment plan, as described except to the extent set forth below Continue on current medication especially Keppra if any clinical symptoms may need to repeat EEG Neeraj Wyman MD Objective - Constitutional Vitals: Temp Pulse Resp BP Pulse Ox 97.8 F 117 16 142/67 92 11/23/18 11:47 11/23/18 11:47 11/23/18 07:51 11/23/18 11:47 11/23/18 07:51 Results - Laboratory Findings CBC and BMP: 11/23/18 04:11 11/23/18 04:11 Abnormal lab findings: Abnormal lab results RBC 2.60 M/mcL (3.82-4.97) L 11/23/18 04:11 Hgb 8.5 g/dL (11.5-15.4) L 11/23/18 04:11 Hct 24.7 % (35.3-44.9) L 11/23/18 04:11 RDW 14.6 % (11.5-14.5) H 11/23/18 04:11 PT 18.1 Seconds (9.4-12.1) H 11/16/18 08:03 VBG pH 7.45 pH Units (7.32-7.42) H 11/20/18 09:57 VBG pCO2 34 mmHg (41-51) L 11/20/18 09:57 VBG pO2 204 mmHg (25-50) H 11/20/18 09:57 Sodium 134 mEq/L (136-145) L 11/23/18 04:11 Potassium 3.3 mEq/L (3.5-5.1) L 11/22/18 06:23 Carbon Dioxide 18 mEq/L (23-29) L 11/23/18 04:11 BUN 24 mg/dL (8-23) H 11/16/18 08:03 1.61 mg/dL (0.60-1.20) H 11/23/18 04:11 Est GFR ( Amer) 37 (> 60) L 11/23/18 04:11 Est GFR (Non-Af Amer) 30 (> 60) L 11/23/18 04:11 Glucose 113 mg/dL (70-105) H 11/23/18 04:11 POC Glucose 112 mg/dL (70-99) H 11/23/18 11:43 279 (280-300) L 11/23/18 04:11 Calcium 8.5 mg/dL (8.6-10.3) L 11/22/18 06:23 Phosphorus 1.8 mg/dL (2.7-4.5) L 11/20/18 09:40 Magnesium 1.4 mg/dL (1.6-2.6) L 11/20/18 09:40 0.07 ng/mL (< 0.04) H* 11/15/18 09:57 5.0 g/dL (6.4-8.9) L 11/20/18 09:40 2.6 g/dL (3.5-5.7) L 11/20/18 09:40 2.2 g/dL (2.4-3.5) L 11/18/18 03:23 Vitamin B12 > 1500 pg/mL (250-1100) H 11/22/18 15:27 21.4 ng/mL (3.0-16.0) H 11/22/18 15:27 TSH 5.814 mcIU/mL (0.340-5.600) H 11/22/18 06:23 100 mg/dL (Neg-Trace) H 11/20/18 15:40 Trace (Negative) H 11/20/18 15:40 Ur Leukocyte Esterase Small (Negative) H 11/20/18 15:40 3-5 per hpf (0-3) H 11/20/18 15:40 Ur Squamous Epith Cells Many per lpf (None-Few) H 11/20/18 15:40 Ur Culture Indicated? NO. (NO) A 11/20/18 15:40
[2018-11-23] MEDS: Pantoprazole 40 MG VIAL IVP SCH (08:46)
[2018-11-23] MEDS: Aspirin Enteric Coated 81 MG Tablet PO SCH (08:47)
[2018-11-23] MEDS: 0.9 % Sodium Chloride w KCl 20 MEQ/1,000 ML MLS IVC SCH ×2 (08:47→23:11)
[2018-11-23] MEDS: amLODIPine 5 MG TABLET PO SCH (08:48)
[2018-11-23] MEDS: Nystatin POWDER 30 GM BOTTLE TP SCH (08:48)
[2018-11-23] MEDS: OXYCODONE Oral CONC 10 MG/0.5 ML ORAL.SYG SL PRN ×3 (10:51→23:21)
--- NOTE | 2018-11-23 12:18 | Internal Med Progress Note ---
Hospitalist Progress Note - Encounter Date of Encounter: 11/23/18 Time of Encounter: 12:09 - Subjective Interval History: Pt less responsive today, less frequent cries for pain. Initially resting more peacefully in bed this AM sleeping without distress, but upon reassessment around 11A at time of family meeting pt has audible rattling with each breath. Family is concerned by this change. Family meeting from 11:05-11:40, provided updates and answered questions. Summary: her 3 children do not want to see her suffer, and they think she is uncomfortable now. Given that start keppra and d/c cefepime only yesterday, will give one more day to monitor for signs of improvement. If none, would prefer to change to DNRCC and focus on comfort. - Exam Vitals: Temp Pulse Resp BP Pulse Ox 97.8 F 117 16 142/67 92 11/23/18 11:47 11/23/18 11:47 11/23/18 07:51 11/23/18 11:47 11/23/18 07:51 Exam: General: NAD, elderly and frail, yells out periodically Thoracic: Normal breath sounds b/l Cardio: Normal S1 and S2, regular rate borderline bradycardic, regular rhythm Abdomen: Soft, nontender, nondistended. Does have ostomy bag L abd appears normal. Extremities: Warm, well perfused. DP pulses 2+ b/l. Mild nonpitting edema in legs. B/l UE with focal edema and bruising around IV sites Skin: Intact. No rashes or ulcers. Bruising as above Neuro: awake, disoriented and does not follow commands - Summary of Assessment and Plan Summary of Assessment and Plan: Acute metabolic encephalopathy: multifactorial 2/2 NOBLE which improved, electrolytes which were corrected, use of ativan which was held, chronic opioid use and withdrawal which have been replaced, UTI and cefepime use which are resolved and discontinued, possible seizures now on keppra. Continues with decreased arousal and today has transmitted upper airway sounds suggestive of poorly protecting airway. - Appreciate Neuro and Palliative recs - fentanyl patch substituted for PO narcs, with fentanyl iv for breakthrough - continue keppra - replace lytes as needed - family discussion today; children do not wish to see their mother suffer, and they recognize her PO intake is limited and now having respiratory distress. Code is DNRCC-A and will likely pursue DNRCC in 1-2 days if no improvement or any signs of further deterioration Byers-sensitive PsA UTI: resolved on course of cefepime Abd pain: suspect hernia pain as well as MSK back pain as well as gastritis on EGD. Biopsy otherwise negative. Continue PPI iv and narcotics as above. Chronic MSK back pain and chronic opioid use disorder: s/p multiple surgeries >20y ago and has since been on MS Contin which was only recently stopped in week before this admission. Now using narcotics as above DVT: 11/04/18, AC d/c'ed 2/ hematuria, now s/p IVC filter CKD4: baseline Cr ~1.5, avoid nephrotoxins and monitor daily HFpEF: euvolemic, continue to hold home lasix CAD: newly started ASA 81, not on statin HTN: home coreg and lasix as above DM2: SSI and q6h accuchecks Depression: home celexa 20 Hypothyroidism: home synthroid PPx: sqh FEN: unable to PO, continue MIVF NS+20K @75 Lines: EPIV Consults: Uro, GI, Neuro, palliative Code: DNRCC-A Dispo: patient requires inpatient eval and management at this time. Prognosis guarded. Internal Medicine: Result - Labs CBC & Chem 7: 11/23/18 04:11 11/23/18 04:11 Labs: Short CBC 11/23/18 Range/Units 04:11 WBC 8.2 (4.3-11.1) K/mcL Hgb 8.5 L (11.5-15.4) g/dL Hct 24.7 L (35.3-44.9) % Plt Count 188 (140-400) K/mcL [facility] 11/23/18 04:11 Sodium 134 L Potassium 4.2 D Chloride 106 Carbon Dioxide 18 L BUN 12 Creatinine 1.61 H Glucose 113 H Calcium 8.7 - ABG Interpretation ABG results: PT/INR, D-dimer PT 18.1 Seconds (9.4-12.1) H 11/16/18 08:03 - Impressions Impressions Brain MRI 11/22/18 12:51 IMPRESSION: No acute intracranial abnormality. Mild parenchymal volume loss. Moderate chronic microvascular disease. Sinus mucosal disease and mastoid effusions. D/ / Guanaco Rodarte MD / Guanaco Rodarte MD Interpreting Provider: Guanaco Rodarte MD Consult Discharge Plan - Plan Referrals: Alfa Zhou Jr, MD [Primary Care Provider] - (from [facility])
[2018-11-23] MEDS: *HR* Metoprolol 5 MG/5 ML VIAL IVP SCH ×3 (14:38→23:11)
--- NOTE | 2018-11-23 16:52 | Palliative Progress Note ---
Date of Encounter: 11/23/18 Time of Encounter: 12:15 - Assessment and plan (1) Toxic metabolic encephalopathy Current Visit: Yes Status: Suspected Assessment and plan: The patient's children, patient was was in how normal mental status on to a week ago, on Thursday when she actually had a video conversation with her family since then, patient has been screaming and walling. Causes of delirium not clear . Neurology appreciated, Patient had an EEG that showed possible hypeactivity. Keppra to be started. Hadol 1 mg q1hr is working well at keeping patient calm but not overly sedated. Cefepime was discontinued. (2) Abdominal pain with radiation to back Current Visit: No Status: Acute Assessment and plan: Patient has history of chronic back pain and was complaining of abdominal pain in admission. Her symptoms appear to respond transiently to to Fentanyl IV. On Fentanyl 50 mcg/hr patch continue Oxycodone SL prn for breakthrough, received 2 doses (3) Goals of care, counseling/discussion Current Visit: Yes Status: Acute Assessment and plan: Conducted family meeting from 12:10 to 12:50 PM. With patient's children Miguel, Alfredo, and Roseline. Family have had a discussion with primary hospitalist, and are aware of patient's current medical condition. Discussed patient's prognosis, and discussed that family would like to wait another 24 hours to see if patient's mental status will improve with the changes made on her management yesterday, namely starting Keppra and stopping the antibiotics cefepime. Discussed with family the next states in case we did not have the outcome we wish for. family is ready to transition to DNR CC and hospice with the goal of keeping the patient is comfortable as possible. Discussed all different levels of hospice, and the services offered by hospice. Because of patient's metabolic encephalopathy, the most appropriate level of hospice at this point would be GIP to manage her symptoms. Patient is not receiving any by mouth since admission, and need management with IV medication. If patient was to stabilize a need discharge, family will need to discuss plan of care for the patient at that time. Patient was previously living at home with her sister the Roseline, but was recently discharged to rehabilitation. Final decisions to be made after reevaluating patient tomorrow. Palliative care will continue to follow. (4) Depression Current Visit: No Status: Chronic Assessment and plan: Patient is on home dose of Celexa, but not being given due to AMS Qualifiers: Depression Type: unspecified Qualified Code(s): F32.9 - Major depressive disorder, single episode, unspecified (5) Palliative care encounter Current Visit: Yes Status: Acute (6) Acute lower urinary tract infection Current Visit: No Status: Acute Assessment and plan: Off antibiotics - Time Spent With Patient Total time spent is greater than 50% in coordination of care (as documented) at patient's floor/unit and/or counseling patient: Greater than 35 minutes - Subjective Interval history: Patient at the time of exam was sleeping peacefully, but became transiently restless during exam. Haldol seems to calm her well. - Constitutional Vitals: Abnormal lab results RBC 2.60 M/mcL (3.82-4.97) L 11/23/18 04:11 Hgb 8.5 g/dL (11.5-15.4) L 11/23/18 04:11 Hct 24.7 % (35.3-44.9) L 11/23/18 04:11 RDW 14.6 % (11.5-14.5) H 11/23/18 04:11 PT 18.1 Seconds (9.4-12.1) H 11/16/18 08:03 VBG pH 7.45 pH Units (7.32-7.42) H 11/20/18 09:57 VBG pCO2 34 mmHg (41-51) L 11/20/18 09:57 VBG pO2 204 mmHg (25-50) H 11/20/18 09:57 Sodium 134 mEq/L (136-145) L 11/23/18 04:11 Potassium 3.3 mEq/L (3.5-5.1) L 11/22/18 06:23 Carbon Dioxide 18 mEq/L (23-29) L 11/23/18 04:11 BUN 24 mg/dL (8-23) H 11/16/18 08:03 1.61 mg/dL (0.60-1.20) H 11/23/18 04:11 Est GFR ( Amer) 37 (> 60) L 11/23/18 04:11 Est GFR (Non-Af Amer) 30 (> 60) L 11/23/18 04:11 Glucose 113 mg/dL (70-105) H 11/23/18 04:11 POC Glucose 112 mg/dL (70-99) H 11/23/18 11:43 279 (280-300) L 11/23/18 04:11 Calcium 8.5 mg/dL (8.6-10.3) L 11/22/18 06:23 Phosphorus 1.8 mg/dL (2.7-4.5) L 11/20/18 09:40 Magnesium 1.4 mg/dL (1.6-2.6) L 11/20/18 09:40 0.07 ng/mL (< 0.04) H* 11/15/18 09:57 5.0 g/dL (6.4-8.9) L 11/20/18 09:40 2.6 g/dL (3.5-5.7) L 11/20/18 09:40 2.2 g/dL (2.4-3.5) L 11/18/18 03:23 Vitamin B12 > 1500 pg/mL (250-1100) H 11/22/18 15:27 21.4 ng/mL (3.0-16.0) H 11/22/18 15:27 TSH 5.814 mcIU/mL (0.340-5.600) H 11/22/18 06:23 100 mg/dL (Neg-Trace) H 11/20/18 15:40 Trace (Negative) H 11/20/18 15:40 Ur Leukocyte Esterase Small (Negative) H 11/20/18 15:40 3-5 per hpf (0-3) H 11/20/18 15:40 Ur Squamous Epith Cells Many per lpf (None-Few) H 11/20/18 15:40 Ur Culture Indicated? NO. (NO) A 11/20/18 15:40 Exam: drowsy - Head Head Exam: Present: atraumatic - Eye Eye exam: Present: EOMI - ENT ENT exam: Present: mucous membranes moist - Neck Neck exam: Present: full ROM - Respiratory Respiratory exam: Present: CTAB - Cardiovascular Cardiovascular exam: Present: +S1, +S2, tachycardia - GI/Abdominal Exam GI/Abdominal exam: Present: normal bowel sounds, soft. Absent: tenderness additional comments: colostomy bag in place, containing soft stool. - Extremities Exam Extremities exam: Present: full ROM. Absent: pedal edema - Neurological Exam Neurological exam: Present: altered Additional comments: calm while sleeping, but becomes agitated and restless when awake. - Psychiatric Psychiatric exam: Present: agitated when awoken. - Skin Skin exam: Present: abrasion (around IV lines) Palliative Quality Palliative Quality: Screen for Code Status: Yes, Screen for Goals of Care: Yes, Screen for Pain: Yes, If Pain Regimen Started, Initiate Bowel Regimen: Yes, Screen for Nausea/Vomitting: NA Code Status: 11/20/18 22:14 CODE [Resuscitation Status: Active] [RES] Routine Comment: Discussed and verified personally w/pts son (POA) Resuscitation Status: [id number] - Labs CBC & Chem 7: 11/23/18 04:11 11/23/18 04:11 Labs: Laboratory Results - last 24 hr 11/22/18 11/22/18 11/22/18 07:43 12:08 19:02 WBC RBC Hgb Hct MCV MCH MCHC RDW Plt Count MPV Sodium Potassium Chloride Carbon Dioxide BUN Creatinine Est GFR ( Amer) Est GFR (Non-Af Amer) BUN/Creatinine Ratio Glucose POC Glucose 83 102 H 100 H Calculated Osmolality Calcium Magnesium 11/23/18 11/23/18 11/23/18 00:11 01:23 03:58 WBC RBC Hgb Hct MCV MCH MCHC RDW Plt Count MPV Sodium Potassium Chloride Carbon Dioxide BUN Creatinine Est GFR ( Amer) Est GFR (Non-Af Amer) BUN/Creatinine Ratio Glucose POC Glucose 59 L 129 H 110 H Calculated Osmolality Calcium Magnesium 11/23/18 11/23/18 11/23/18 04:11 04:11 06:40 WBC 8.2 RBC 2.60 L Hgb 8.5 L Hct 24.7 L MCV 95.0 MCH 32.7 MCHC 34.4 RDW 14.6 H Plt Count 188 MPV 10.1 Sodium 134 L Potassium 4.2 D Chloride 106 Carbon Dioxide 18 L BUN 12 Creatinine 1.61 H Est GFR ( Amer) 37 L Est GFR (Non-Af Amer) 30 L BUN/Creatinine Ratio 7 Glucose 113 H POC Glucose 107 H Calculated Osmolality 279 L Calcium 8.7 Magnesium 1.8 11/23/18 11:43 WBC RBC Hgb Hct MCV MCH MCHC RDW Plt Count MPV Sodium Potassium Chloride Carbon Dioxide BUN Creatinine Est GFR ( Amer) Est GFR (Non-Af Amer) BUN/Creatinine Ratio Glucose POC Glucose 112 H Calculated Osmolality Calcium Magnesium - Impressions Impressions Brain MRI 11/22/18 12:51 IMPRESSION: No acute intracranial abnormality. Mild parenchymal volume loss. Moderate chronic microvascular disease. Sinus mucosal disease and mastoid effusions. D/ / Guanaco Rodarte MD / Guanaco Rodarte MD Interpreting Provider: Guanaco Rodarte MD - ABG Interpretation ABG results: PT/INR, D-dimer PT 18.1 Seconds (9.4-12.1) H 11/16/18 08:03 Palliative Scale - Palliative Performance Scale How ambulatory is this patient?: Mainly in bed What is patient's level of activity and evidence of disease?: Unable to do any work, Extensive disease How much self-care assistance does patient require?: Mainly assistance How much oral intake does the patient have?: Minimal to sips What is this patient's level of consciousness?: Full or confusion Palliative Performance Score: 30 % Consult Discharge Plan - Plan Referrals: Alfa Zhou Jr, MD [Primary Care Provider] - (from [facility])
[2018-11-24] MEDS: Insulin LISPRO 300 UNITS/3 ML VIAL SQ SCH ×4 (00:34→17:47)
[2018-11-24] MEDS: OXYCODONE Oral CONC 10 MG/0.5 ML ORAL.SYG SL PRN ×2 (04:00→09:15)
[2018-11-24 04:15] LABS: Hematocrit 25.2 % (35.3-44.9); Hemoglobin 8.2 g/dL (11.5-15.4); Mean Corpuscular HGB Conc 32.5 g/dL (31.6-35.5); Mean Corpuscular Volume 98.4 fL (83.0-100.0); Mean Platelet Volume 9.9 fL (9.4-12.4); Platelet Count 212 K/mcL (140-400); Red Blood Count 2.56 M/mcL (3.82-4.97); Red Cell Distribution Width 15.2 % (11.5-14.5)
[2018-11-24 04:17] LABS: VBG HCO3 16 mEq/L (21-27); VBG PCO2 34 mmHg (41-51); VBG PH 7.29 pH Units (7.32-7.42); VBG PO2 58 mmHg (25-50)
[2018-11-24 04:22] LABS: INR 1.7; Prothrombin Time 19.7 Seconds (9.4-12.1)
[2018-11-24 04:37] LABS: Calcium 8.7 mg/dL (8.6-10.3); Magnesium 1.8 mg/dL (1.6-2.6); Phosphorous 2.6 mg/dL (2.7-4.5); Potassium 4.8 mEq/L (3.5-5.1)
[2018-11-24] MEDS: Haloperidol Lactate 5 MG/ML VIAL IVP PRN ×2 (06:26→11:38)
[2018-11-24] MEDS: *HR* Metoprolol 5 MG/5 ML VIAL IVP SCH ×3 (06:30→17:59)
[2018-11-24] MEDS: *HR* Heparin 5,000 UNIT/ML VIAL SQ SCH ×2 (06:30→18:00)
--- NOTE | 2018-11-24 08:12 | Neurology Progress Note ---
<Tyler Candelario - Last Filed: 11/24/18 08:57> Date of Encounter: 11/24/18 Time of Encounter: 08:11 Assessment and Plan (1) Toxic metabolic encephalopathy Current Visit: Yes Status: Suspected - Etiology of encephalopathy continues to be unclear - Differential is vast and may include infectious, inflammatory, medication induced. - Completed course of treatment of cefepime for pseudomonal UTI on 11/22/18 - History of chronic indwelling Pal catheter which has been exchanged on this visit - Has been receiving [id number] opioid medications. Started on Haldol every 4 hours when necessary per palliative care - No leukocytosis, afebrile, TSH mildly elevated in the setting of acute illness. T4 wnl. - B12, folate not diminished - Imaging prior to arrival on 11/[address] of the abdomen which showed descending colostomy with small peristomal hernia, no evidence of obstruction. Pleural effusions and trace ascites also noted. - chest x-ray on 11/20 which showed no focal infiltrate. - Physical exam is limited due to patient cooperation. She is moving all 4 extremities - Clinically is not showing any real signs of improvement. - MRI of the brain obtained on 11/22/18 shows no evidence of acute process but does show moderate chronic microvascular disease, mild parenchymal volume loss as well as sinus mucosal disease and mastoid effusions. No clear underlying etiology of mental status changes Plan - Continue to suspect that Patient's history and presentation do not point to neurologic etiology suspect is most likely metabolic, however EEG results suggest that there may be a neurologic factor. Very likely that this is multifactorial metabolic process and compounded on chronic cortical atrophy and normal aging degeneration which is exacerbating her symptoms. - We will continue monitor on current medications of Keppra, Haldol and monitor while off cefepime. - Also may consider adrenal etiology. Prednisone 10 mg on home med list and no steroids here. Wound explain abdominal pain and AMS however no evidence of hypotension. - Cefepime has been documented to cause confusion, patient has completed course of antibiotics - Palliative care following- (2) Abnormal EEG Current Visit: Yes Status: Acute - As noted on 11/22/18 - Indication for EEG was altered mental status - EEG showed generalized slowing, triphasic waves as well as bilateral frontal maximal epileptiform discharges - Etiology of these findings is unclear but may be related to frontal above for seizures - Started on Keppra, day #3. 500 mg twice a day Plan - Clinically, patient appears to be about the same as yesterday in her mental status but does appear slightly less agitated. This may be related to timing of sedating medications. We will continue scheduled Keppra and monitor. - If indicated, repeat EEG and/or 24-hour ambulatory EEG monitoring might be useful in the future. Subjective Principal diagnosis: Toxic metabolic encephalopathy Interval history: Patient was seen and examined at bedside this morning. She continues to be altered and is unable to provide a review of systems. No family is present at bedside. Patient is in no acute distress but does yell periodically, possibly secondary to pain. Appears calmer this morning. No overnight events. Per documentation, at family meeting yesterday family stated that they will reassess today after starting Keppra. They are possibly deciding to make patient comfort care. Objective - Constitutional Vitals: Temp Pulse Resp BP Pulse Ox 97.7 F 82 15 173/70 99 11/24/18 07:31 11/24/18 07:31 11/24/18 07:31 11/24/18 07:31 11/24/18 07:31 General appearance: Present: A&O X 0, mild distress Exam: Physical exam is limited secondary to patient's mental status. She does not follow commands and does not answer questions. She yells out periodically mostly saying "ow" but is not as loud or as often today. - Head Head exam: Present: atraumatic, normal inspection, normocephalic - Neurological Exam Motor Examination: Present: other (Unable to assess) Sensation intact: Present: other (Unable to assess) Mental Status Examination: Present: does not follow commands, agitated, no spontaneous eye opening to voice or tactile stimulation, not reliable historian. Absent: awake, alert, oriented to person, oriented to place, oriented to time, follows commands appropriately, answers questions appropriately Cranial nerve examination: Present: PERRL - Other Additional findings: diffuse ecchymosis present in all extremities. Results - Laboratory Findings CBC and BMP: 11/24/18 03:59 11/24/18 03:59 Abnormal lab findings: Abnormal lab results RBC 2.56 M/mcL (3.82-4.97) L 11/24/18 03:59 Hgb 8.2 g/dL (11.5-15.4) L 11/24/18 03:59 Hct 25.2 % (35.3-44.9) L 11/24/18 03:59 RDW 15.2 % (11.5-14.5) H 11/24/18 03:59 PT 19.7 Seconds (9.4-12.1) H 11/24/18 03:59 VBG pH 7.29 pH Units (7.32-7.42) L 11/24/18 04:14 VBG pCO2 34 mmHg (41-51) L 11/24/18 04:14 VBG pO2 58 mmHg (25-50) H 11/24/18 04:14 VBG HCO3 16 mEq/L (21-27) L 11/24/18 04:14 Sodium 135 mEq/L (136-145) L 11/24/18 03:59 Potassium 3.3 mEq/L (3.5-5.1) L 11/22/18 06:23 Chloride 113 mEq/L (98-107) H 11/24/18 03:59 Carbon Dioxide 17 mEq/L (23-29) L 11/24/18 03:59 BUN 24 mg/dL (8-23) H 11/16/18 08:03 1.76 mg/dL (0.60-1.20) H 11/24/18 03:59 Est GFR ( Amer) 33 (> 60) L 11/24/18 03:59 Est GFR (Non-Af Amer) 27 (> 60) L 11/24/18 03:59 Glucose 113 mg/dL (70-105) H 11/23/18 04:11 POC Glucose 112 mg/dL (70-99) H 11/23/18 11:43 279 (280-300) L 11/24/18 03:59 Calcium 8.5 mg/dL (8.6-10.3) L 11/22/18 06:23 Phosphorus 2.6 mg/dL (2.7-4.5) L 11/24/18 03:59 Magnesium 1.4 mg/dL (1.6-2.6) L 11/20/18 09:40 0.07 ng/mL (< 0.04) H* 11/15/18 09:57 5.0 g/dL (6.4-8.9) L 11/20/18 09:40 2.6 g/dL (3.5-5.7) L 11/20/18 09:40 2.2 g/dL (2.4-3.5) L 11/18/18 03:23 Vitamin B12 > 1500 pg/mL (250-1100) H 11/22/18 15:27 21.4 ng/mL (3.0-16.0) H 11/22/18 15:27 TSH 5.814 mcIU/mL (0.340-5.600) H 11/22/18 06:23 100 mg/dL (Neg-Trace) H 11/20/18 15:40 Trace (Negative) H 11/20/18 15:40 Ur Leukocyte Esterase Small (Negative) H 11/20/18 15:40 3-5 per hpf (0-3) H 11/20/18 15:40 Ur Squamous Epith Cells Many per lpf (None-Few) H 11/20/18 15:40 Ur Culture Indicated? NO. (NO) A 11/20/18 15:40 Consult Discharge Plan - Plan Referrals: Alfa Zhou Jr, MD [Primary Care Provider] - (from [facility]) <Neeraj Wyman I - Last Filed: 11/24/18 15:56> Date of Encounter: 11/24/18 Assessment and Plan (1) Toxic metabolic encephalopathy Current Visit: Yes Status: Suspected Pt was seen and examined, my medical decision was reviewed with the Resident Physician, I agree with the documented findings, disposition and treatment plan, as described except to the extent set forth below Neeraj Wyman MD Objective - Constitutional Vitals: Temp Pulse Resp BP Pulse Ox 97.9 F 70 15 172/89 97 11/24/18 11:31 11/24/18 11:31 11/24/18 11:31 11/24/18 11:31 11/24/18 11:31 Results - Laboratory Findings CBC and BMP: 11/24/18 03:59 11/24/18 03:59 Abnormal lab findings: Abnormal lab results RBC 2.56 M/mcL (3.82-4.97) L 11/24/18 03:59 Hgb 8.2 g/dL (11.5-15.4) L 11/24/18 03:59 Hct 25.2 % (35.3-44.9) L 11/24/18 03:59 RDW 15.2 % (11.5-14.5) H 11/24/18 03:59 PT 19.7 Seconds (9.4-12.1) H 11/24/18 03:59 VBG pH 7.29 pH Units (7.32-7.42) L 11/24/18 04:14 VBG pCO2 34 mmHg (41-51) L 11/24/18 04:14 VBG pO2 58 mmHg (25-50) H 11/24/18 04:14 VBG HCO3 16 mEq/L (21-27) L 11/24/18 04:14 Sodium 135 mEq/L (136-145) L 11/24/18 03:59 Potassium 3.3 mEq/L (3.5-5.1) L 11/22/18 06:23 Chloride 113 mEq/L (98-107) H 11/24/18 03:59 Carbon Dioxide 17 mEq/L (23-29) L 11/24/18 03:59 BUN 24 mg/dL (8-23) H 11/16/18 08:03 1.76 mg/dL (0.60-1.20) H 11/24/18 03:59 Est GFR ( Amer) 33 (> 60) L 11/24/18 03:59 Est GFR (Non-Af Amer) 27 (> 60) L 11/24/18 03:59 Glucose 113 mg/dL (70-105) H 11/23/18 04:11 POC Glucose 112 mg/dL (70-99) H 11/23/18 11:43 279 (280-300) L 11/24/18 03:59 Calcium 8.5 mg/dL (8.6-10.3) L 11/22/18 06:23 Phosphorus 2.6 mg/dL (2.7-4.5) L 11/24/18 03:59 Magnesium 1.4 mg/dL (1.6-2.6) L 11/20/18 09:40 0.07 ng/mL (< 0.04) H* 11/15/18 09:57 5.0 g/dL (6.4-8.9) L 11/20/18 09:40 2.6 g/dL (3.5-5.7) L 11/20/18 09:40 2.2 g/dL (2.4-3.5) L 11/18/18 03:23 Vitamin B12 > 1500 pg/mL (250-1100) H 11/22/18 15:27 21.4 ng/mL (3.0-16.0) H 11/22/18 15:27 TSH 5.814 mcIU/mL (0.340-5.600) H 11/22/18 06:23 100 mg/dL (Neg-Trace) H 11/20/18 15:40 Trace (Negative) H 11/20/18 15:40 Ur Leukocyte Esterase Small (Negative) H 11/20/18 15:40 3-5 per hpf (0-3) H 11/20/18 15:40 Ur Squamous Epith Cells Many per lpf (None-Few) H 11/20/18 15:40 Ur Culture Indicated? NO. (NO) A 11/20/18 15:40
[2018-11-24] MEDS: Pantoprazole 40 MG VIAL IVP SCH (09:11)
[2018-11-24] MEDS: amLODIPine 5 MG TABLET PO SCH (09:12)
[2018-11-24] MEDS: Nystatin POWDER 30 GM BOTTLE TP SCH (09:12)
[2018-11-24] MEDS: Aspirin Enteric Coated 81 MG Tablet PO SCH (09:12)
--- NOTE | 2018-11-24 16:03 | Palliative Progress Note ---
Date of Encounter: 11/24/18 Time of Encounter: 09:30 - Assessment and plan (1) Toxic metabolic encephalopathy Current Visit: Yes Status: Suspected Assessment and plan: The patient's children, patient was was in how normal mental status on to a week ago, on Thursday when she actually had a video conversation with her family since then, patient has been screaming and walling. Causes of delirium not clear . Neurology appreciated, Patient had an EEG that showed possible hypeactivity. Keppra to be started. Hadol 1 mg q1hr is working well at keeping patient calm but not overly sedated. Cefepime was discontinued. 11/24: patient is more calm today, but remains mostly sedated. will dicontinue prn fentanyl, as well as reduce doses of haldol to allow a better evaluation of mental status. (2) Abdominal pain with radiation to back Current Visit: No Status: Acute Assessment and plan: Patient has history of chronic back pain and was complaining of abdominal pain in admission. On Fentanyl 50 mcg/hr patch continue Oxycodone SL prn for breakthrough, received 2 doses d/c prn fentanyl (3) Goals of care, counseling/discussion Current Visit: Yes Status: Acute Assessment and plan: 11/23: Conducted family meeting from 12:10 to 12:50 PM. With patient's children Miguel, Alfredo, and Roseline. Family have had a discussion with [facility], and are aware of patient's current medical condition. Discussed patient's prognosis, and discussed that family would like to wait another 24 hours to see if patient's mental status will improve with the changes made on her management yesterday, namely starting Keppra and stopping the antibiotics cefepime. Discussed with family the next states in case we did not have the outcome we wish for. family is ready to transition to DNR CC and hospice with the goal of keeping the patient is comfortable as possible. Discussed all different levels of hospice, and the services offered by hospice. Because of patient's metabolic encephalopathy, the most appropriate level of hospice at this point would be GIP to manage her symptoms. Patient is not receiving any by mouth since admission, and need management with IV medication. If patient was to stabilize a need discharge, family will need to discuss plan of care for the patient at that time. Patient was previously living at home with her sister the Roseline, but was recently discharged to rehabilitation. Final decisions to be made after reevaluating patient tomorrow. Palliative care will continue to follow. 11/24: called and reached patient daughter Roseline. She was updated on patient's condition. She stated the family wants to proceed with hospice, however final decision is of her brother Miguel. Unable to reach Miguel. Left message with Roseline to have Miguel follow up for possible hospice GIP tomorrow. (4) Depression Current Visit: No Status: Chronic Assessment and plan: Patient is on home dose of Celexa, but not being given due to AMS Qualifiers: Depression Type: unspecified Qualified Code(s): F32.9 - Major depressive disorder, single episode, unspecified (5) Palliative care encounter Current Visit: Yes Status: Acute (6) Acute lower urinary tract infection Current Visit: No Status: Acute Assessment and plan: Off antibiotics - Time Spent With Patient Total time spent is greater than 50% in coordination of care (as documented) at patient's floor/unit and/or counseling patient: - Subjective Interval history: Patient at the time of exam was sleeping peacefully, on attempts to wake her up, she opened her eyes transiently and became restless, but calm down again and went back to sleep. Patient has a fentanyl patch 50mcg.hr, received 3 prn doses of 50mcg of fentanyl and 5 doses of oxycodone 5mg, she also received 5 doses of haldol 1 mg. - Constitutional Vitals: Abnormal lab results RBC 2.56 M/mcL (3.82-4.97) L 11/24/18 03:59 Hgb 8.2 g/dL (11.5-15.4) L 11/24/18 03:59 Hct 25.2 % (35.3-44.9) L 11/24/18 03:59 RDW 15.2 % (11.5-14.5) H 11/24/18 03:59 PT 19.7 Seconds (9.4-12.1) H 11/24/18 03:59 VBG pH 7.29 pH Units (7.32-7.42) L 11/24/18 04:14 VBG pCO2 34 mmHg (41-51) L 11/24/18 04:14 VBG pO2 58 mmHg (25-50) H 11/24/18 04:14 VBG HCO3 16 mEq/L (21-27) L 11/24/18 04:14 Sodium 135 mEq/L (136-145) L 11/24/18 03:59 Potassium 3.3 mEq/L (3.5-5.1) L 11/22/18 06:23 Chloride 113 mEq/L (98-107) H 11/24/18 03:59 Carbon Dioxide 17 mEq/L (23-29) L 11/24/18 03:59 BUN 24 mg/dL (8-23) H 11/16/18 08:03 1.76 mg/dL (0.60-1.20) H 11/24/18 03:59 Est GFR ( Amer) 33 (> 60) L 11/24/18 03:59 Est GFR (Non-Af Amer) 27 (> 60) L 11/24/18 03:59 Glucose 113 mg/dL (70-105) H 11/23/18 04:11 POC Glucose 112 mg/dL (70-99) H 11/23/18 11:43 279 (280-300) L 11/24/18 03:59 Calcium 8.5 mg/dL (8.6-10.3) L 11/22/18 06:23 Phosphorus 2.6 mg/dL (2.7-4.5) L 11/24/18 03:59 Magnesium 1.4 mg/dL (1.6-2.6) L 11/20/18 09:40 0.07 ng/mL (< 0.04) H* 11/15/18 09:57 5.0 g/dL (6.4-8.9) L 11/20/18 09:40 2.6 g/dL (3.5-5.7) L 11/20/18 09:40 2.2 g/dL (2.4-3.5) L 11/18/18 03:23 Vitamin B12 > 1500 pg/mL (250-1100) H 11/22/18 15:27 21.4 ng/mL (3.0-16.0) H 11/22/18 15:27 TSH 5.814 mcIU/mL (0.340-5.600) H 11/22/18 06:23 100 mg/dL (Neg-Trace) H 11/20/18 15:40 Trace (Negative) H 11/20/18 15:40 Ur Leukocyte Esterase Small (Negative) H 11/20/18 15:40 3-5 per hpf (0-3) H 11/20/18 15:40 Ur Squamous Epith Cells Many per lpf (None-Few) H 11/20/18 15:40 Ur Culture Indicated? NO. (NO) A 11/20/18 15:40 Exam: drowsy - Head Head Exam: Present: atraumatic - Eye Eye exam: Present: EOMI - ENT ENT exam: Present: mucous membranes moist - Neck Neck exam: Present: full ROM - Respiratory Respiratory exam: Present: CTAB - Cardiovascular Cardiovascular exam: Present: +S1, +S2, tachycardia - GI/Abdominal Exam GI/Abdominal exam: Present: normal bowel sounds, soft. Absent: tenderness additional comments: colostomy bag in place, containing soft stool. - Extremities Exam Extremities exam: Present: full ROM. Absent: pedal edema - Neurological Exam Neurological exam: Present: altered Additional comments: calm while sleeping, but becomes agitated and restless when awake. - Psychiatric Psychiatric exam: Present: agitated when awoken. - Skin Skin exam: Present: abrasion (around IV lines) Palliative Quality Palliative Quality: Screen for Code Status: Yes, Screen for Goals of Care: Yes, Screen for Pain: Yes, If Pain Regimen Started, Initiate Bowel Regimen: Yes, Screen for Nausea/Vomitting: NA Code Status: 11/20/18 22:14 CODE [Resuscitation Status: Active] [RES] Routine Comment: Discussed and verified personally w/pts son (POA) Resuscitation Status: [id number] - Labs CBC & Chem 7: 11/24/18 03:59 11/24/18 03:59 Labs: Laboratory Results - last 24 hr 11/23/18 11/23/18 11/24/18 17:07 23:47 03:59 WBC 7.1 RBC 2.56 L Hgb 8.2 L Hct 25.2 L MCV 98.4 MCH 32.0 MCHC 32.5 RDW 15.2 H Plt Count 212 MPV 9.9 PT INR VBG pH VBG pCO2 VBG pO2 VBG HCO3 Sodium Potassium Chloride Carbon Dioxide BUN Creatinine Est GFR ( Amer) Est GFR (Non-Af Amer) BUN/Creatinine Ratio Glucose POC Glucose 90 91 Calculated Osmolality Calcium Phosphorus Magnesium 11/24/18 11/24/18 11/24/18 03:59 03:59 04:14 WBC RBC Hgb Hct MCV MCH MCHC RDW Plt Count MPV PT 19.7 H INR 1.7 VBG pH 7.29 L VBG pCO2 34 L VBG pO2 58 H VBG HCO3 16 L Sodium 135 L Potassium 4.8 Chloride 113 H Carbon Dioxide 17 L BUN 13 Creatinine 1.76 H Est GFR ( Amer) 33 L Est GFR (Non-Af Amer) 27 L BUN/Creatinine Ratio 7 Glucose 81 POC Glucose Calculated Osmolality 279 L Calcium 8.7 Phosphorus 2.6 L Magnesium 1.8 11/24/18 06:26 WBC RBC Hgb Hct MCV MCH MCHC RDW Plt Count MPV PT INR VBG pH VBG pCO2 VBG pO2 VBG HCO3 Sodium Potassium Chloride Carbon Dioxide BUN Creatinine Est GFR ( Amer) Est GFR (Non-Af Amer) BUN/Creatinine Ratio Glucose POC Glucose 80 Calculated Osmolality Calcium Phosphorus Magnesium - ABG Interpretation ABG results: PT/INR, D-dimer PT 19.7 Seconds (9.4-12.1) H 11/24/18 03:59 Palliative Scale - Palliative Performance Scale How ambulatory is this patient?: Mainly in bed What is patient's level of activity and evidence of disease?: Unable to do any work, Extensive disease How much self-care assistance does patient require?: Mainly assistance How much oral intake does the patient have?: Minimal to sips What is this patient's level of consciousness?: Full or confusion Palliative Performance Score: 30 % Consult Discharge Plan - Plan Referrals: Alfa Zhou Jr, MD [Primary Care Provider] - (from [facility])
[2018-11-24] MEDS ORDERED: Haloperidol Lactate 5 MG/ML VIAL IVP PRN (16:11)
--- NOTE | 2018-11-24 16:59 | Internal Med Progress Note ---
Hospitalist Progress Note - Encounter Date of Encounter: 11/24/18 Time of Encounter: 16:56 - Subjective Interval History: Pt without any improvement. Less hyperactive today but does not arouse to verbal stim, responds nonfocally to physical stim and not following commands. Palliative discussed with daughter, awaiting pt's son carson to make final decision regarding comfort measures. - Exam Vitals: Temp Pulse Resp BP Pulse Ox 98.4 F 82 16 179/70 95 11/24/18 16:33 11/24/18 16:33 11/24/18 16:33 11/24/18 16:33 11/24/18 16:33 Exam: General: NAD, elderly and frail, sleeping and difficult to arouse Thoracic: Her rattling breath sounds are improved, does have bibasilar crackles Cardio: Normal S1 and S2, tachycardic, regular rhythm Abdomen: Soft, nondistended. Does have ostomy bag L abd appears normal. Extremities: Warm, well perfused. Mild nonpitting edema in legs. B/l UE with focal edema and bruising around previous IV sites Neuro: lethargic, does not follow commands or respond in meaningful way to physical stim - Summary of Assessment and Plan Summary of Assessment and Plan: Acute metabolic encephalopathy: multifactorial 2/2 NOBLE which improved, electrolytes which were corrected, use of ativan which was held, chronic opioid use and withdrawal which have been replaced, UTI and cefepime use which are resolved and discontinued, possible seizures now on keppra. Less hyperactivity today but no signs of neurologic improvement. - Appreciate Neuro and Palliative recs - fentanyl patch substituted for PO narcs, with fentanyl iv for breakthrough - haldol for agitation - continue keppra - replace lytes as needed - trial solucortef 25 q8h given med list w prednisone 10 daily and not on steroids here although is hypertensive so doubt this - awaiting family to determine code status Byers-sensitive PsA UTI: resolved on course of cefepime Abd pain: suspect hernia pain as well as MSK back pain as well as gastritis on EGD. Biopsy otherwise negative. Continue PPI iv and narcotics as above. Chronic MSK back pain and chronic opioid use disorder: s/p multiple surgeries >20y ago and has since been on MS Contin which was only recently stopped in week before this admission. Now using narcotics as above DVT: 4/11/19, AC d/c'ed 2/2 hematuria, now s/p IVC filter CKD4: baseline Cr ~1.5, avoid nephrotoxins and monitor daily HFpEF: not significantly volume overloaded CAD: holding ASA 81, not on statin HTN: holding coreg and lasix DM2: SSI and q6h accuchecks Depression: holding home celexa 20 Hypothyroidism: holding home synthroid PPx: sqh FEN: unable to PO, change MIVF to NS@75 (no K) Lines: EPIV Consults: Uro, GI, Neuro, palliative Code: DNRCC-A Dispo: patient requires inpatient eval and management at this time. Prognosis guarded. Internal Medicine: Result - Labs CBC & Chem 7: 11/24/18 03:59 11/24/18 03:59 Labs: Short CBC 11/24/18 Range/Units 03:59 WBC 7.1 (4.3-11.1) K/mcL Hgb 8.2 L (11.5-15.4) g/dL Hct 25.2 L (35.3-44.9) % Plt Count 212 (140-400) K/mcL BMP 11/24/18 03:59 Sodium 135 L Potassium 4.8 Chloride 113 H Carbon Dioxide 17 L BUN 13 Creatinine 1.76 H Glucose 81 Calcium 8.7 - ABG Interpretation ABG results: PT/INR, D-dimer PT 19.7 Seconds (9.4-12.1) H 11/24/18 03:59 Consult Discharge Plan - Plan Referrals: Alfa Zhou Jr, MD [Primary Care Provider] - (from [facility])
[2018-11-24] MEDS: Hydrocortisone Sodium Succ 100 MG/2 ML VIAL IVP SCH (17:59)
[2018-11-24] MEDS: 0.9 % Sodium Chloride 1,000 ML IVC SCH (18:00)
[2018-11-25] MEDS: Insulin LISPRO 300 UNITS/3 ML VIAL SQ SCH ×3 (00:10→12:53)
[2018-11-25] MEDS: *HR* Metoprolol 5 MG/5 ML VIAL IVP SCH ×2 (00:24→05:53)
[2018-11-25] MEDS: Hydrocortisone Sodium Succ 100 MG/2 ML VIAL IVP SCH ×2 (00:24→08:36)
[2018-11-25] MEDS: *HR* Heparin 5,000 UNIT/ML VIAL SQ SCH (05:53)
[2018-11-25] MEDS: Pantoprazole 40 MG VIAL IVP SCH (08:35)
[2018-11-25] MEDS: 0.9 % Sodium Chloride 1,000 ML IVC SCH (08:35)
[2018-11-25] MEDS: Nystatin POWDER 30 GM BOTTLE TP SCH (08:36)
[2018-11-25] MEDS: Aspirin Enteric Coated 81 MG Tablet PO SCH (08:46)
[2018-11-25] MEDS: amLODIPine 5 MG TABLET PO SCH (08:46)
--- NOTE | 2018-11-25 08:52 | Neurology Progress Note ---
Date of Encounter: 11/25/18 Time of Encounter: 08:51 Assessment and Plan (1) Toxic metabolic encephalopathy Current Visit: Yes Status: Suspected - Etiology of encephalopathy continues to be unclear - Differential is vast and may include infectious, inflammatory, medication induced. - Completed course of treatment of cefepime for pseudomonal UTI on 11/22/18 - History of chronic indwelling Pal catheter which has been exchanged on this visit - Has been receiving [id number] opioid medications. Started on Haldol every 4 hours when necessary per palliative care - No leukocytosis, afebrile, TSH mildly elevated in the setting of acute illness. T4 wnl. - B12, folate not diminished - Imaging prior to arrival on 11/[address] of the abdomen which showed descending colostomy with small peristomal hernia, no evidence of obstruction. Pleural effusions and trace ascites also noted. - chest x-ray on 11/20 which showed no focal infiltrate. - Physical exam is limited due to patient cooperation. She is moving all 4 extremities - Clinically is not showing any real signs of improvement. - MRI of the brain obtained on 11/22/18 shows no evidence of acute process but does show moderate chronic microvascular disease, mild parenchymal volume loss as well as sinus mucosal disease and mastoid effusions. No clear underlying etiology of mental status changes - Started on Keppra, day #4 for abnormal EEG as below Plan - Continue to suspect that Patient's history and presentation do not point to neurologic etiology suspect is most likely metabolic, however EEG results suggest that there may be a neurologic factor. Very likely that this is mul tifactorial metabolic process and compounded on chronic cortical atrophy and normal aging degeneration which is exacerbating her symptoms. - We will repeat EEG this morning to further evaluate for continued events. - We will continue monitor on current medications of Keppra, Haldol and monitor while off cefepime. - Also may consider adrenal etiology. Prednisone 10 mg on home med list and no steroids here. Wound explain abdominal pain and AMS however no evidence of hypotension. - Palliative care following- Repeat EEG reviewed and again showed diffuse slowing but no obvious cause of altered mentation. Please see full report. Patient to be discharged to inpatient hospice. Neurology will sign off at this time. Please call if questions. Thank you for allowing us to participate in Ms. Spence's care. (2) Abnormal EEG Current Visit: Yes Status: Acute - As noted on 11/22/18 - Indication for EEG was altered mental status - EEG showed generalized slowing, triphasic waves as well as bilateral frontal maximal epileptiform discharges - Etiology of these findings is unclear but may be related to frontal above for seizures - Started on Keppra, day #4. 500 mg twice a day Plan - Clinically, patient appears to be about the same as yesterday in her mental status but does appear slightly less agitated. This may be related to timing of sedating medications. We will continue scheduled Keppra and monitor. - Repeat EEG this morning, pending results - If indicated, repeat EEG and/or 24-hour ambulatory EEG monitoring might be useful in the future. Subjective Principal diagnosis: Toxic metabolic encephalopathy Interval history: Patient was seen and examined at bedside this morning. She continues to be altered and is unable to provide a review of systems. No family is present at bedside. Patient is in no acute distress but does yell periodically particularly when touched. Less hyperactive this morning. No overnight events. Objective - Constitutional Vitals: Temp Pulse Resp BP Pulse Ox 97.9 F 81 18 186/89 98 11/25/18 08:03 11/25/18 08:03 11/25/18 08:03 11/25/18 08:03 11/25/18 08:03 General appearance: Present: A&O X 0, no acute distress, thin. Absent: answers questions appropriately - Head Head exam: Present: atraumatic, normal inspection, normocephalic - Eye Eye exam: Present: PERRL (pupils 2mm) - Neurological Exam Motor Examination: Present: other (Unable to assess) Sensation intact: Present: other (Unable to assess) Mental Status Examination: Present: awake, does not follow commands, lethargic, localizes noxious stimulation, no spontaneous eye opening to voice or tactile stimulation, not reliable historian. Absent: alert, oriented to person, oriented to place, oriented to time, follows commands appropriately, answers questions appropriately Cranial nerve examination: Present: PERRL Results - Laboratory Findings CBC and BMP: 11/24/18 03:59 11/24/18 03:59 Abnormal lab findings: Abnormal lab results RBC 2.56 M/mcL (3.82-4.97) L 11/24/18 03:59 Hgb 8.2 g/dL (11.5-15.4) L 11/24/18 03:59 Hct 25.2 % (35.3-44.9) L 11/24/18 03:59 RDW 15.2 % (11.5-14.5) H 11/24/18 03:59 PT 19.7 Seconds (9.4-12.1) H 11/24/18 03:59 VBG pH 7.29 pH Units (7.32-7.42) L 11/24/18 04:14 VBG pCO2 34 mmHg (41-51) L 11/24/18 04:14 VBG pO2 58 mmHg (25-50) H 11/24/18 04:14 VBG HCO3 16 mEq/L (21-27) L 11/24/18 04:14 Sodium 135 mEq/L (136-145) L 11/24/18 03:59 Potassium 3.3 mEq/L (3.5-5.1) L 11/22/18 06:23 Chloride 113 mEq/L (98-107) H 11/24/18 03:59 Carbon Dioxide 17 mEq/L (23-29) L 11/24/18 03:59 BUN 24 mg/dL (8-23) H 11/16/18 08:03 1.76 mg/dL (0.60-1.20) H 11/24/18 03:59 Est GFR ( Amer) 33 (> 60) L 11/24/18 03:59 Est GFR (Non-Af Amer) 27 (> 60) L 11/24/18 03:59 Glucose 113 mg/dL (70-105) H 11/23/18 04:11 POC Glucose 63 mg/dL (70-99) L 11/24/18 17:33 279 (280-300) L 11/24/18 03:59 Calcium 8.5 mg/dL (8.6-10.3) L 11/22/18 06:23 Phosphorus 2.6 mg/dL (2.7-4.5) L 11/24/18 03:59 Magnesium 1.4 mg/dL (1.6-2.6) L 11/20/18 09:40 0.07 ng/mL (< 0.04) H* 11/15/18 09:57 5.0 g/dL (6.4-8.9) L 11/20/18 09:40 2.6 g/dL (3.5-5.7) L 11/20/18 09:40 2.2 g/dL (2.4-3.5) L 11/18/18 03:23 Vitamin B12 > 1500 pg/mL (250-1100) H 11/22/18 15:27 21.4 ng/mL (3.0-16.0) H 11/22/18 15:27 TSH 5.814 mcIU/mL (0.340-5.600) H 11/22/18 06:23 100 mg/dL (Neg-Trace) H 11/20/18 15:40 Trace (Negative) H 11/20/18 15:40 Ur Leukocyte Esterase Small (Negative) H 11/20/18 15:40 3-5 per hpf (0-3) H 11/20/18 15:40 Ur Squamous Epith Cells Many per lpf (None-Few) H 11/20/18 15:40 Ur Culture Indicated? NO. (NO) A 11/20/18 15:40 Consult Discharge Plan - Plan Referrals: Alfa Zhou Jr, MD [Primary Care Provider] - (from [facility]) Prescriptions: levETIRAcetam [Keppra] 500 mg PO Q12HR #1 tablet
--- NOTE | 2018-11-25 12:12 | EEG/EMG/Oth Biometrics Report ---
EEG Procedure Report EEG Procedure: Routine EEG Procedure Note: This EEG was acquired with standard international 10-20 electrode placement system with EKG recording. The Background activity during this EEG was replaced by diffuse background slowing in the range of delta and theta activity with predominant delta activity. The background activity was minimally active. Later during the recording, EEG tracing gradually evolved into higher amplitude delta activity, Photic stimulation produced no abnormalities. HV not performed during this study. EKG tracing showed no significant cardiac dysarrhythmia. Impression: This is an abnormal EEG due to presence of diffuse background slowing, with few triphasic waves as could be seen with hepatorenal dysfunction clinical correlation is suggested .
--- NOTE | 2018-11-25 12:20 | Discharge Summary ---
- NOTES TO OUTPATIENT PROVIDER Notes to Outpatient Provider: Discharge to inpatient hospice Date of Encounter: 11/25/18 Time of Encounter: 12:17 Hospital course: Dear Doctors, I recently had the opportunity to care for this patient during their recent hospital stay at [facility]. Carolynn Spence is an 87 F w hx arthritis, HFpEF, COPD, CAD s/p [place], DVT, DM2, chronic pain and fibromyalgia, GERD, HLD, HTN, CKD3a, hypothyroidism. She presented at time of admission with abdominal pain. Patient was transferred to [facility] from [place] [facility] where she was taken due to worsening abdominal pain. Patient reported that she has chronic back and abdominal pain that worsened and was not alleviated by her chronic opiate pain medications. Patient denied vomiting, chest pain, shortness of breath, light headedness, or dizziness. In the ED at [facility] patient was found to have a UTI, and an elevated troponin, transferred to [facility] for further management. While in the hospital, patient was placed on cefepime for pseudomonal UTI. Place on oxycodone to lessen/reverse the effects of opioid withdrawal. She continued to have severe pain and was taken for EGD which revealed only gastritis. CT of her abd/pelvis was unremarkable. She subsequently developed confusion of unknown etiology and became stuporous, requiring IV fluid support. Noted to have several electrolyte abnormalities which were corrected, although without any improvement in pt's mental status. Did have repetitive agonisms yelling in pain, and thus Neurology was consulted who performed MRI which was unremarkable and EEG which showed possible seizure activity and she was started on Keppra, and her cefepime was discontinued. She continued to remain stuporous despite our best attempts to ascertain other etiologies of her mental status change. At time of her cries out in pain, family requested helping to make her comfortable, and thus Palliative team was consulted for further discussion of goals of care. Pt's two sons and one daughter present for family meeting, and decided to pursue comfort measures if no signs of recovery. Two days later, without any meaningful change, they opted to transition to comfort care. Pt will discharge to inpatient hospice. Dx: acute metabolic encephalopathy, pseudomonas UTI, seizures, hyponatremia, hypokalemia, hypophosphatemia, hypoglycemia, opioid withdrawal Pertinent tests/consults: Uro, GI, Neuro, Palliative Follow up: Inpatient Hospice Tests pending: none Med changes: - new keppra 500 bid - hospice to continue comfort medications including fentanyl patch and haldol prn - stopped all PO medications Mental status: stuporous Code status: DNRCC Time spent on discharge: 35 minutes It has been my pleasure participating in this patient's care. Please contact me with any questions or concerns regarding their hospital stay. Sincerely, Asad Aleman MD - Discharge Medications Prescriptions: New levETIRAcetam [Keppra] 500 mg PO Q12HR #1 tablet Discontinued Citalopram Hydrobromide [Citalopram HBr] 10 mg PO DAILY Cyanocobalamin (B-12) [Vitamin B12] 1,000 mcg PO Q48H Ferrous Sulfate [Iron] 325 mg PO DAILY Levothyroxine Sodium 100 mcg PO DAILY Omeprazole [PriLOSEC] 20 mg PO DAILY Furosemide [Lasix] 20 mg PO DAILY Warfarin [Coumadin] 2 mg PO 1800 Cholecalciferol (Vitamin D3) [Vitamin D] 50,000 unit PO TU Oxycodone HCl [Roxybond] 5 mg PO Q4H PRN PRN Reason: Pain Docusate [Colace] 100 mg PO BID Polyethylene Glycol 3350 [MiraLAX] 17 gm PO DAILY PRN PRN Reason: Constipation Carvedilol [Coreg] 12.5 mg PO BID predniSONE [PredniSONE] 10 mg PO DAILY Home Medications: levETIRAcetam [Keppra] 500 mg PO Q12HR #1 tablet 11/25/18 [Rx] Allergies/Adverse Reactions: Allergy/AdvReac Type Severity Reaction Status Date / Time trimethoprim Allergy See Verified 11/14/18 03:00 Comments Sulfa (Sulfonamide AdvReac Nausea Verified 11/14/18 03:00 Antibiotics) ativan AdvReac Unresponsiv Uncoded 11/20/18 22:05 e Date of admission: 11/16/18 12:57 Primary care physician: lAfa Zhou Jr, MD Consults: 11/14/18 09:15 Consult to Cardiology [CONS] Routine Comment: Consulting Provider: Cardiology Jenni Reason for Consult: chest pain. elevated trops Call Completed: Yes 11/14/18 12:22 Consult to Nutrition [CONS] Routine Comment: Consulting Provider: NUTRITION Reason for Dietary Consult: MST Score Consult to [facility] [CONS] Routine Reason for SW Consult: return to [facility] - Melody Willoughby 11/15/18 09:44 Consult to Gastroenterology [CONS] Routine Consulting Provider: Gastroenterology Grawn Reason for Consult: Abd pain Call Completed: Yes 11/15/18 12:46 Consult to Surgery [CONS] Stat Consulting Provider: Surgery [facility] Reason for Consult: Abd pain with CT shows hernia Call Completed: Yes 11/16/18 12:49 Consult to Urology [CONS] Routine Consulting Provider: Urology Gra[facility] Reason for Consult: Hx of hematuria on 11/11, has Pal, has UTI now, please help for management Call Completed: Yes 11/16/18 19:05 Consult to Speech Therapy [CONS] Routine Comment: Evaluate, develop and implement POC Reason for Consult: coughing with PO fluid intake - has required altered diet and thickened liquids in past Call Completed: No 11/18/18 20:26 Consult to [facility] [CONS] Routine Reason for SW Consult: Patient's chronic use of opioid for pain management 11/22/18 10:18 Consult to Palliative Care [CONS] Routine Comment: Consulting Provider: Palliative Care Jenni Reason for Consult: opioid needs Call Completed: Yes 11/22/18 11:20 Consult to Neurology [CONS] Routine Consulting Provider: Neurology [facility] Reason for Consult: altered mental status despite correction of underlying abnormalities Call Completed: Yes 11/22/18 14:41 Consult to Interpret Exam [CONS] Routine Consulting Provider: Neeraj Wyman I Consult to Interpret Exam: Interpret EEG - Constitutional Vitals: Temp Pulse Resp BP Pulse Ox 97.9 F 81 18 186/89 98 11/25/18 08:03 11/25/18 08:03 11/25/18 08:03 11/25/18 08:03 11/25/18 08:03 Exam: General: NAD, elderly and frail, sleeping but today will open eyes slowly to verbal stim and will look to side of voice but nonfocally Thoracic: Shallow breaths, does have faint bibasilar crackles Cardio: Normal S1 and S2, regular rate and rhythm on my exam Abdomen: Soft, nondistended. Does have ostomy bag L abd. Extremities: Warm, well perfused. Mild nonpitting edema in legs. B/l UE with some hand and forearm edema Neuro: lethargic, while opens eyes nonspecifically and looks to side of voice, does not follow any commands despite repeated prompting or respond in purposeful way to any physical stim - Patient Status Disposition: Hospice - Medical Facility Condition: Serious Functional capacity at discharge: bed bound Overall status at discharge: patient is not back to baseline - Discharge Instructions Follow Up With: Alfa Zhou Jr, MD [Primary Care Provider] - (from [facility]) - Diet and Activity Activity: other (bedbound) Diet: other (diet per hospice, currently NPO)
[2018-11-25 12:53] VITALS: BP 196/96
== END 2018-11-25 14:51 | disposition hospice, inpatient (51) | DRG 698 ==
LOC: 2ANU → SUATTDRO 11-16 12:57
PROVIDERS: ADMIT Family Medicine; ATTEND Internal Medicine
PROC: ENDOEBX (2018-11-17 14:00)

== ENCOUNTER 2018-11-25 11:23 | Inpatient (IN) ==
[2018-11-25] MEDS ORDERED: Atropine Sulfate 1% 40 DROP/2 ML BOTTLE SL PRN (13:58)
[2018-11-25] MEDS ORDERED: Ondansetron 4 MG/2 ML VIAL IVP PRN (13:58)
[2018-11-25] MEDS ORDERED: *HR* FentaNYL PATCH 50 MCG PATCH TD SCH (14:00)
[2018-11-25] MEDS ORDERED: *HR* Metoprolol 5 MG/5 ML VIAL IVP PRN (14:08)
--- NOTE | 2018-11-25 14:13 | Pallative History & Physical ---
Date of Encounter: 11/26/18 Time of Encounter: 09:30 Assessment and Plan (1) Abdominal pain with radiation to back Current visit: No Status: Acute Patient has history of chronic back pain and was complaining of abdominal pain in admission. On Fentanyl 50 mcg/hr patch continue Oxycodone SL prn for breakthrough, received 2 doses (2) Hospice care Current visit: Yes Status: Acute patient admitted to hospice [facility] for delirium management and end of life care. Secretions: Atropine prn - Nausea: Zofran prn (3) Goals of care, counseling/discussion Current visit: No Status: Acute Met with patient's son Miguel, updated on patient's current medical condition. Patient seems better today, options are to continue current management, or admit to GIP. Miguel decided for comfort care and GIP admission. If patient stabilizes, plan is for discharge home with hospice. Will need involvement for logistics in case. (4) Toxic metabolic encephalopathy Current visit: No Status: Suspected continue haldol prn will continue Keppra and Solu-Cortef for 24 hrs, if patient does not continue to improve, will discontinue. (5) Hypertension Current visit: No Status: Chronic Patient unable to tolerate PO, BP tends to reach 200s systolic. Metoprolol and Hydralazine IV in place. Qualifiers: Hypertension type: essential hypertension Qualified Code(s): I10 - Essential (primary) hypertension Internal Medicine - H&P: HPI Admitted From: Intrahospital Transfer Plans for Post Hospital Care: at Medical Facility History of present illness: Ms. Spence is a 87 year old female with past medical history of arthritis, CHF, COPD, CAD, DVT, diabetes, fibromyalgia, GERD, hyperlipidemia, hypertension, CKD stage III, hypothyroidism who initially presented to [facility] from SNF on 11/14/18 with a complaint of abdominal pain. History from chart review as patient is delirius and no family is present. Patient has history of chronic back pain, s/p multiple surgeries, on pain medication for >20 years. At the [facility] , patient was on MS contin 30 mg q8hrs, and it was discontinued. Patient then underwent withdrawal, followed by complains of abdominal pain. At the time of admission, UA wa positive, she has been treated for UTI with appropriate antibiotics, and lynne was removed with successful voiding trial. Hospital stay is complicated by altered mental status, at first lethargy, followed now by agitation and screaming with no apparent reason. GI was also consulted and EGD was performed which showed gastritis and a large gastric folds. Pathology shows oxyntic mucosa with mild chronic inflammation. Gen. surgery was also consulted for recommendations regarding peristomal hernia and abdominal pain. They have since signed off suggesting that hernia is not the likely source of patient's pain and recommends bowel regimen. Patient was increasingly delirious, screaming and not communicating. Neurology recommended Keppra and medications were discontinued. Pain medication was adjusted. However, mental status failed to recover. Patient's children Miguel, Alfredo and Irma decided to transition to DNRCC and comfort measures only. Patient admitted to hospice [facility] for symptom management. Today patient is more calm, received 1 dose of haldol overnight, opening eyes and tracking, but no purposeful interaction or movement. Past Med Surg Social Fam HX - Past Medical History Medical history: arthritis, CHF, COPD, coronary artery disease, DVT, diabetes, fibromyalgia, GERD, hyperlipidemia, hypertension, myocardial infarction, renal disease, thyroid disease, other Additional medical history: Chronic diastolic heart failure Psychiatric history: anxiety, depression - Past Surgical History Surgical History: angioplasty/stent, cholecystectomy, colostomy, herniorrhaphy, hysterectomy, orthopedic, other Additional surgical history: HERNIA REPAIR, HYSTERECTOMY, COLON SURGERY, BLADDER REPAIR, CARPEL TUNNEL SURGERY, FX FOOT - Social History Smoking Status: Never smoker Smokeless Tobacco Status: No Alcohol use: none Drug use: none Internal Medicine - H&P: Meds Acetaminophen [Non-Aspirin] 650 mg PO Q6H PRN 11/25/18 [History] Carvedilol [Coreg] 12.5 mg PO BID 11/25/18 [History] Cholecalciferol (Vitamin D3) [Optimal D3] 50,000 unit PO QWEEK 11/25/18 [History] Citalopram Hydrobromide [Citalopram HBr] 10 mg PO DAILY 11/25/18 [History] Cyanocobalamin (B-12) [Vitamin B12] 1,000 mcg PO Q48H 11/25/18 [History] Ferrous Sulfate [Iron] 325 mg PO DAILY 11/25/18 [History] Furosemide [Lasix] 20 mg PO DAILY 11/25/18 [History] Levothyroxine Sodium 100 mcg PO QAM 11/25/18 [History] Omeprazole [PriLOSEC] 20 mg PO DAILY 11/25/18 [History] Oxycodone HCl 5 mg PO Q4H 11/25/18 [History] predniSONE [PredniSONE] 10 mg PO DAILY 11/25/18 [History] Allergy/AdvReac Type Severity Reaction Status Date / Time trimethoprim Allergy See Verified 11/14/18 03:00 Comments Sulfa (Sulfonamide AdvReac Nausea Verified 11/14/18 03:00 Antibiotics) ativan AdvReac Unresponsiv Uncoded 11/20/18 22:05 e ROS unobtainable: due to mental status Palliative Care-Exam - Constitutional General appearance: Present: average body habitus - Head Head Exam: Present: atraumatic - Respiratory Respiratory exam: Present: CTAB - Cardiovascular Cardiovascular exam: Present: RRR, +S1, +S2, tachycardia - GI/Abdominal Exam GI/Abdominal exam: Present: normal bowel sounds - Neurological Exam Additional comments: awke and calm, not following commands, tracking. Palliative Quality Palliative Quality: Screen for Code Status: Yes, Screen for Goals of Care: Yes, Screen for Pain: Yes, If Pain Regimen Started, Initiate Bowel Regimen: Yes, Screen for Nausea/Vomitting: Yes Code Status: 11/25/18 13:58 Resuscitation Status: Active [RES] Routine Comment: Resuscitation Status: DNR-Comfort Care
[2018-11-25] MEDS: Hydrocortisone Sodium Succ 100 MG/2 ML VIAL IVP SCH (16:45)
[2018-11-25] MEDS: OXYCODONE Oral CONC 10 MG/0.5 ML ORAL.SYG SL SCH ×2 (16:46→21:18)
[2018-11-25] MEDS ORDERED: Nystatin Cream 15 GM TUBE TP SCH (21:00)
[2018-11-26] MEDS: OXYCODONE Oral CONC 10 MG/0.5 ML ORAL.SYG SL SCH ×2 (00:27→04:19)
[2018-11-26] MEDS: Hydrocortisone Sodium Succ 100 MG/2 ML VIAL IVP SCH (00:27)
[2018-11-26] MEDS: Haloperidol Lactate 5 MG/ML VIAL IVP PRN ×2 (00:30→04:25)
[2018-11-26 00:41] VITALS: BP 200/62
--- NOTE | 2018-11-26 10:56 | Death Note ---
Discharge Sum: Summary - Date and Time Date of admission: 11/25/18 15:03 Date of : 11/26/18 Time of : 07:25 - Summary Details: Ms. Spence is a 87 year old female with past medical history of arthritis, CHF, COPD, CAD, DVT, diabetes, fibromyalgia, GERD, hyperlipidemia, hypertension, CKD stage III, hypothyroidism who initially presented to [facility] from SNF on 11/14/18 with a complaint of abdominal pain. Hospital stay was complicated by acute metabolic encephalopathy and delirium, with no identifiable cause, that did not resolve. Family was against any further procedure and agressive management. Patient was transitioned to hospice for comfort measures and end of life care. she peacefully today at 7:25. Family was notified and arrived at the bedside. Emotional support provided. - Additional Data Confirmation of as documented by pronouncing clinician: no pulse, no respirations, no heart sounds, pupils fixed and dilated Family: contacted Additional persons at bedside: other Attending/PCP notified?: Yes Attending physician: Sue Roman MD Was code activated?: No Autopsy requested?: No gun examiner notified?: No Organ bank notified?: Yes Advance directives: Yes Hospice patient?: Yes Discharge Sum: Diag - PCOD Probable Cause of : Respiratory arrest Discharge Sum: Prov - Provider Primary care physician: PCP NONE Admitting clinician: Sue Roman Attending physician on admission: Sue Roman Consults: 11/25/18 13:58 Consult to Palliative Care [CONS] Routine Comment: Consulting Provider: Palliative Care [place] Reason for Consult: hospice admission Time Notified: 14:01 Call Completed: Yes
== END 2018-11-26 07:25 | disposition expired | DRG 951 ==
LOC: 2ANU 15:03
PROVIDERS: ADMIT Internal Medicine Hospice and Palliative Medicine; ATTEND Internal Medicine Hospice and Palliative Medicine